=== PATIENT | male | born 1935 | race Caucasian/White ===

== ENCOUNTER 2017-06-11 11:49 | Observation (INO) | payer MEDICARE ==
[~2017-06-11] VITALS: Ht 180.3 cm; Wt 71.4 kg
[~2017-06-11 11:49] MED LIST: ESOM2.5S PO; ESOM20CA PO; HYDR25LI MC; HYDR25TA9 PO; OMEP40CA5 PO; PERI4TAB PO; PSYL0.526 PO; ZOLP10TA PO
[2017-06-11 12:55] VITALS: BP 129/76
[2017-06-11 12:59] LABS: BASO # 0.1 x10^3/uL (0.0-0.2); BASO % 1 % (0-3); EOS % 1 % (0-3); LYMPH # 0.8 x10^3/uL (1.0-4.8); LYMPH % 12 % (24-48); MEAN CORPUSCULAR HEMOGLOBIN 31 pg (25-35); MEAN CORPUSCULAR HGB CONC 34 g/dL (31-37); MEAN CORPUSCULAR VOLUME 92 fL (79-100); MONO # 1.1 x10^3/uL (0.0-1.1); MONO % 17 % (0-9); NEUT # 4.5 x10^3uL (1.8-7.7); NEUT % 70 % (31-73); PLATELET COUNT 162 x10^3/uL (140-400); RED BLOOD COUNT 4.56 x10^6/uL (4.30-5.70); WHITE BLOOD COUNT 6.5 x10^3/uL (4.0-11.0)
[2017-06-11 13:27] LABS: ALBUMIN 3.7 g/dL (3.4-5.0); ALBUMIN/GLOBULIN RATIO 1.3 (1.0-1.7); CALCIUM 8.9 mg/dL (8.5-10.1); CREATININE 1.3 mg/dL (0.7-1.3); GFR 52.7; POTASSIUM 3.8 mmol/L (3.5-5.1); TOTAL BILIRUBIN 0.9 mg/dL (0.2-1.0); TOTAL PROTEIN 6.6 g/dL (6.4-8.2)
[2017-06-11] MEDS ORDERED: TRIA0.25 PO (14:06)
[2017-06-11] MEDS ORDERED: NITR0.4T22 SL (14:06)
[2017-06-11] MEDS ORDERED: PERI8TAB2 PO (14:06)
[2017-06-11] MEDS ORDERED: ATOR40TA59 PO (14:06)
[2017-06-11] MEDS ORDERED: ASPI-630 PO (14:06)
[2017-06-11] MEDS ORDERED: MIRA25TA PO (14:06)
[2017-06-11] MEDS ORDERED: BRIN10DR EACHEYE (14:06)
[2017-06-11] MEDS ORDERED: ISOS30TA4 PO (14:06)
[2017-06-11] MEDS ORDERED: IOHEXOL 300 MG/ML 75 ML VIAL. IV ONE (14:10)
[2017-06-11 15:47] LABS: BACTERIA,URINE 0 /HPF (0-FEW); BILIRUBIN,URINE NEG (NEG); CLARITY,URINE CLEAR; COLOR,URINE YELLOW; GLUCOSE,URINE NEG (NEG); NITRITE,URINE NEG (NEG); SQUAMOUS EPITHELIAL CELL,UR OCC /LPF; UROBILINOGEN,URINE 1 mg/dL (0.2 mg/dL); WBC,URINE OCC /HPF (0-4)
[2017-06-11 16:20] VITALS: BP 130/73
[2017-06-11] MEDS ORDERED: ZOLPIDEM 5 MG TABLET. PO PRN (16:45)
--- NOTE | 2017-06-11 16:53 | RAD ---
Chest, 2 views, 06/11/2017: History: Chest pain Comparison is made to a study from 10/03/2016. There is unchanged elevation of the left hemidiaphragm. A right Port-A-Cath extends into the superior vena cava. The heart size and pulmonary vascularity are normal. There is calcific plaquing and tortuosity of the thoracic aorta. No pulmonary infiltrates are seen. There is no evidence of pleural fluid. Moderate spurring is present in the spine. IMPRESSION: No acute cardiopulmonary abnormality is detected.
--- NOTE | 2017-06-11 17:02 | EKG ---
[address] [address] Test Date: 2017-06-11 Test Time: 17:00:11 Pat Name: DONNELL CONKLIN Department: Room: 113 A Gender: M Clam Treader: : [id number] Requested By: JHON FRAUSTO Order Number: [id number] Reading MD: Parmjit Cross Measurements Intervals [place] Rate: 66 P: 45 [place]: 158 QRS: 7 QRSD: 84 T: 14 QT: 400 QTc: 421 Interpretive Statements SINUS RHYTHM ATRIAL PREMATURE COMPLEX(ES) Electronically Signed On 06-14-2017 8:43:43 CDT by Parmjit Cross
--- NOTE | 2017-06-11 17:21 | PDOC2 ---
CONSULT Date of Admission DATE: 06/11/17 TIME: 17:04 Reason for Consult: chest pain History of Present Illness Mr Haddad is an 81 year old male with history of hypertension, hyperlipidemia and coronary artery disease. He presents with complaints of sharp mid sternal chest pain lasting only a brief period starting last pm. He reports that today in a [place] meeting he had 5 more episodes so presented to his PCP who recommended he be admitted for eval. He reports pain at rest and not increased with exertion but the same as prior to his cath. He has a history of prior atypical chest pain with significantly abnormal MPI followed by cardiac cath in Oct which revealed 90% OM, FIRE WARDEN of RPDA and subtotal occlusion of very distal apical segment of the LAD. He underwent PTCA of the OM but the vessel was not amenable to stenting due to tortuosity. He was seen again early this year which recurrent chest pain and again abnormal MPI but was decided to manage medically. He was started on long acting nitrates and he reports this is the first chest pain he has had since his January follow up with Dr Becerril. He denies any congestive symptoms, sleeps chronically on 2 pillows, denies palpitations, lightheadedness or syncope. Past Medical History CAD with cath history as above. hypertension, chronic mild dyspnea on exertion, Fuchs' Endothelial dystrophy, follicular lymphoma, corneal transplant, advanced surface ablation photorefractive keratectomy, cataract surgery, glaucoma, hyperlipidemia, GERD, Barretts esophagus, cholecystectomy, hemorrhoid sx Family History non contributory due to age Social History non smoker, no significant ETOH, no illicit drugs Current Medications Current Medications Iohexol (Omnipaque 300 Mg/ml) 60 ml 1X ONCE IV Last administered on 06/11/17t 14:23; Start 06/11/17 at 14:10; Stop 06/11/17 at 14:11; Status DC Aspirin (Children'S Aspirin) 81 mg DAILY PO ; Start 06/12/17 at 09:00 Hydrochlorothiazide (Microzide) 12.5 mg DAILY PO ; Start 06/12/17 at 09:00 Isosorbide Mononitrate (Imdur) 30 mg DAILY PO ; Start 06/12/17 at 09:00 Atorvastatin Calcium (Lipitor) 40 mg QHS PO ; Start 06/11/17 at 21:00; Stop at 21:00; Status DC Dorzolamide HCl (Trusopt) 1 drop BID OU ; Start 06/11/17 at 21:00 Pantoprazole Sodium (Protonix) 40 mg DAILYAC PO ; Start 06/12/17 at 07:30 Lisinopril (Prinivil) 20 mg DAILY PO ; Start 06/12/17 at 09:00 Zolpidem Tartrate (Ambien) 5 mg QHS PO ; Start 06/11/17 at 21:00 Zolpidem Tartrate (Ambien) 5 mg PRN QHS PRN PO INSOMNIA; Start 06/11/17 at 16: 45 Atorvastatin Calcium (Lipitor) 40 mg DAILY PO ; Start 06/12/17 at 09:00 Active Scripts Active Nexium Capsule (Esomeprazole Magnesium) 20 Mg Capsule.dr 1 Cap PO DAILY Reported Myrbetriq (Mirabegron) 25 Mg Tab.er.24h 1 Tab PO DAILY Azopt (Brinzolamide) 10 Ml Drops.susp 1 Drop EACHEYE BID Halcion (Triazolam) 0.25 Mg Tablet 1 Tab PO QHS NITROGLYCERIN SubLingual (Nitroglycerin) 0.4 Mg Tab.subl 0.4 Mg SL PRN Q5MIN PRN Atorvastatin Calcium 40 Mg Tablet 1 Tab PO DAILY Isosorbide Mononitrate Er (Isosorbide Mononitrate) 30 Mg Tab.er.24h 1 Tab PO DAILY Perindopril Erbumine 8 Mg Tablet 8 Mg PO DAILY Aspirin 81 Mg Tab.chew 81 Mg PO DAILY Hydrochlorothiazide Tablet (Hydrochlorothiazide) 25 Mg Tablet 0.5 Tab PO DAILY Allergies: Coded Allergies: etomidate (Verified Allergy, Severe, 09/06/15) "Seizure" like activity amoxicillin (Verified Allergy, Mild, 03/29/15) Cough ciprofloxacin (Verified Allergy, Mild, 03/29/15) Cough propofol (Verified Allergy, Unknown, 03/29/15) Cough & Sneeze Review of System as per HPI or negative General: Alert, Oriented X3, Cooperative, No acute distress HEENT: Atraumatic, EOMI, Mucous membr. moist/pink Lungs: Clear to auscultation, Normal air movement Heart: Regular rate, Normal S1, Normal S2 Abdomen: Normal bowel sounds, Soft, No tenderness Extremities: No cyanosis, No edema, Normal pulses Neuro: Normal speech, Strength at 5/5 X4 ext Psych/Mental Status: Mental status NL, Mood NL VITALS Vital Signs Date Time Temp Pulse Resp B/P (MAP) Pulse Ox O2 Delivery O2 Flow Rate FiO2 06/11/17 16:20 98.2 69 20 130/73 (92) 97 Room Air Labs Laboratory Tests Test 06/11/17 12:49 06/11/17 14:50 White Blood Count 6.5 x10^3/uL (4.0-11.0) Red Blood Count 4.56 x10^6/uL (4.30-5.70) Hemoglobin 14.0 g/dL (13.0-17.5) Hematocrit 42.0 % (39.0-53.0) Mean Corpuscular Volume 92 fL (79-100) Mean Corpuscular Hemoglobin 31 pg (25-35) Mean Corpuscular Hemoglobin Concent 34 g/dL (31-37) Red Cell Distribution Width 15.0 % (11.5-14.5) Platelet Count 162 x10^3/uL (140-400) Neutrophils (%) (Auto) 70 % (31-73) Lymphocytes (%) (Auto) 12 % (24-48) Monocytes (%) (Auto) 17 % (0-9) Eosinophils (%) (Auto) 1 % (0-3) Basophils (%) (Auto) 1 % (0-3) Neutrophils # (Auto) 4.5 x10^3uL (1.8-7.7) Lymphocytes # (Auto) 0.8 x10^3/uL (1.0-4.8) Monocytes # (Auto) 1.1 x10^3/uL (0.0-1.1) Eosinophils # (Auto) 0.0 x10^3/uL (0.0-0.7) Basophils # (Auto) 0.1 x10^3/uL (0.0-0.2) D-Dimer (Sandra) 2.63 mg/L (0.00-0.50) Sodium Level 142 mmol/L (136-145) Potassium Level 3.8 mmol/L (3.5-5.1) Chloride Level 105 mmol/L (98-107) Carbon Dioxide Level 28 mmol/L (21-32) Anion Gap 9 (6-14) Blood Urea Nitrogen 30 mg/dL (8-26) Creatinine 1.3 mg/dL (0.7-1.3) Estimated GFR (Cockcroft-Gault) 52.7 BUN/Creatinine Ratio 23 (6-20) Glucose Level 86 mg/dL (70-99) Calcium Level 8.9 mg/dL (8.5-10.1) Total Bilirubin 0.9 mg/dL (0.2-1.0) Aspartate Amino Transf (AST/SGOT) 42 U/L (15-37) Alanine Aminotransferase (ALT/SGPT) 24 U/L (16-63) Alkaline Phosphatase 77 U/L (46-116) Creatine Kinase 133 U/L (39-308) Troponin I Quantitative < 0.017 ng/mL (0-0.055) Total Protein 6.6 g/dL (6.4-8.2) Albumin 3.7 g/dL (3.4-5.0) Albumin/Globulin Ratio 1.3 (1.0-1.7) Urine Collection Type Unknown Urine Color Yellow Urine Clarity Clear Urine pH 5.0 Urine Specific [place] <=1.005 Urine Protein Neg (NEG-TRACE) Urine Glucose (UA) Neg mg/dL (NEG) Urine Ketones (Stick) Neg mg/dL (NEG) Urine Blood Trace (NEG) Urine Nitrite Neg (NEG) Urine Bilirubin Neg (NEG) Urine Urobilinogen Dipstick 1 mg/dL (0.2 mg/dL) Urine Leukocyte Esterase Neg (NEG) Urine RBC 3-5 /HPF (0-2) Urine WBC Occ /HPF (0-4) Urine Squamous Epithelial Cells Occ /LPF Urine Bacteria 0 /HPF (0-FEW) Images EKG - sinus rhythm, early R transition, non specific abnormalities, unchanged from prior EKGs CT pending CXR pending Assessment/Plan 1. Chest pain, atypical but with history of atypical chest pain and coronary artery disease as noted above. Continue serial enzymes, continue anti anginals and add Ranexa. 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 2. hypertension - controlled on current medical therapy. 3. hyperlipidemia - continue statin 4. elevated D dimer - CTA pending. mgmt as per PCP Problems: NESTOR TAY APRN Jun 11, 2017 17:21
--- NOTE | 2017-06-11 17:42 | RAD ---
CTA of the chest with contrast, 06/11/2017: History: Elevated d-dimer previous lymphoma Multidetector CT imaging was performed following an IV bolus injection of iodinated contrast material. Multiplanar reconstructions were produced including coronal MIP images. Comparison is made to a study from 07/29/2014. The central pulmonary arteries are well opacified and no filling defects are seen to suggest pulmonary emboli. There is moderate calcific plaquing of the thoracic aorta. Moderate coronary artery calcifications are evident. A right Port-A-Cath extends into the superior vena cava. There are abnormal densities in the posterior mediastinum, best seen adjacent to the descending thoracic aorta. There is mild retrocrural adenopathy best seen on the right. Several small anterior mediastinal lymph nodes are noted. These are new, although they measure less than 1 cm in diameter. There are mild linear and groundglass opacities posteriorly in the lung bases, probably due to a combination of atelectasis and scarring. This is most prominent posteriorly in the left lower lobe, in association with chronic elevation of the left hemidiaphragm. No pulmonary mass is seen. There is no evidence of pleural fluid. There are several small axillary lymph nodes bilaterally which are new when compared to the previous study. Some of these are considered to be of borderline size. IMPRESSION: 1. No CT evidence of central pulmonary emboli. 2. Calcific plaquing of the aorta and coronary arteries. 3. New mediastinal and retrocrural adenopathy, presumably related to the patient's given history of lymphoma. 4. Chronic elevation of the left hemidiaphragm with mild left basilar atelectasis. PQRS Compliance Statement: One or more of the following individualized dose reduction techniques were utilized for this examination: 1. Automated exposure control 2. Adjustment of the mA and/or kV according to patient size 3. Use of iterative reconstruction technique
[2017-06-11 19:34] VITALS: BP 134/77
[2017-06-11] MEDS: DORZOLAMIDE 2% OPHTH SOLUTION 10ML BOTTLE. OU SCH ×2 (21:00→22:25)
[2017-06-11] MEDS: RANOLAZINE 500 MG TAB.ER.12H PO SCH ×2 (21:00→22:25)
[2017-06-11] MEDS ORDERED: ZOLPIDEM 5 MG TABLET. PO SCH (21:00)
[2017-06-11] MEDS ORDERED: ATORVASTATIN CALCIUM 20 MG TABLET PO SCH (21:00)
[2017-06-12 05:52] VITALS: BP 146/82
[2017-06-12 06:16] LABS: BASO # 0.1 x10^3/uL (0.0-0.2); BASO % 1 % (0-3); EOS # 0.1 x10^3/uL (0.0-0.7); EOS % 1 % (0-3); HEMATOCRIT 39.6 % (39.0-53.0); HEMOGLOBIN 13.2 g/dL (13.0-17.5); LYMPH # 0.8 x10^3/uL (1.0-4.8); LYMPH % 12 % (24-48); MEAN CORPUSCULAR HEMOGLOBIN 31 pg (25-35); MEAN CORPUSCULAR HGB CONC 33 g/dL (31-37); MEAN CORPUSCULAR VOLUME 92 fL (79-100); MONO # 1.5 x10^3/uL (0.0-1.1); MONO % 22 % (0-9); NEUT # 4.3 x10^3uL (1.8-7.7); NEUT % 64 % (31-73); PLATELET COUNT 151 x10^3/uL (140-400); RED BLOOD COUNT 4.31 x10^6/uL (4.30-5.70); RED CELL DISTRIBUTION WIDTH 15.1 % (11.5-14.5); WHITE BLOOD COUNT 6.7 x10^3/uL (4.0-11.0)
[2017-06-12 06:31] LABS: CALCIUM 8.5 mg/dL (8.5-10.1); CREATININE 1.3 mg/dL (0.7-1.3); GFR 52.7; POTASSIUM 3.5 mmol/L (3.5-5.1)
[2017-06-12] MEDS ORDERED: PANTOPRAZOLE 40 MG TABLET. PO SCH (07:30)
[2017-06-12] MEDS: DORZOLAMIDE 2% OPHTH SOLUTION 10ML BOTTLE. OU SCH (08:12)
[2017-06-12] MEDS: RANOLAZINE 500 MG TAB.ER.12H PO SCH (08:14)
[2017-06-12] MEDS ORDERED: ATORVASTATIN CALCIUM 20 MG TABLET PO SCH (09:00)
[2017-06-12] MEDS ORDERED: ISOSORBIDE MONONITRATE ER 30 MG TAB.ER.24H PO SCH (09:00)
[2017-06-12] MEDS ORDERED: MIRABEGRON 25 MG TAB.ER.24H PO SCH (09:00)
[2017-06-12] MEDS ORDERED: LISINOPRIL 20 MG TABLET PO SCH (09:00)
[2017-06-12] MEDS ORDERED: ASPIRIN 81 MG TAB.CHEW PO SCH (09:00)
[2017-06-12] MEDS ORDERED: hydroCHLOROthiazide 12.5 MG CAPSULE PO SCH (09:00)
--- NOTE | 2017-06-12 10:00 | PDOC ---
OBJECTIVE: Problems: Chest pain angina WDWN in NAD Vital Signs: Vital Signs Date Time Temp Pulse Resp B/P (MAP) Pulse Ox O2 Delivery O2 Flow Rate FiO2 06/12/17 08:14 67 146/82 06/11/17 20:00 Room Air 06/11/17 19:34 98.4 20 94 I & O Intake and Output 06/12/17 07:00 Intake Total 840 ml Balance 840 ml Intake Oral 840 ml # Voids 1 Labs: Laboratory Tests Test 06/11/17 12:49 06/11/17 14:50 06/11/17 18:25 06/12/17 00:30 White Blood Count 6.5 x10^3/uL (4.0-11.0) Red Blood Count 4.56 x10^6/uL (4.30-5.70) Hemoglobin 14.0 g/dL (13.0-17.5) Hematocrit 42.0 % (39.0-53.0) Mean Corpuscular Volume 92 fL (79-100) Mean Corpuscular Hemoglobin 31 pg (25-35) Mean Corpuscular Hemoglobin Concent 34 g/dL (31-37) Red Cell Distribution Width 15.0 % (11.5-14.5) Platelet Count 162 x10^3/uL (140-400) Neutrophils (%) (Auto) 70 % (31-73) Lymphocytes (%) (Auto) 12 % (24-48) Monocytes (%) (Auto) 17 % (0-9) Eosinophils (%) (Auto) 1 % (0-3) Basophils (%) (Auto) 1 % (0-3) Neutrophils # (Auto) 4.5 x10^3uL (1.8-7.7) Lymphocytes # (Auto) 0.8 x10^3/uL (1.0-4.8) Monocytes # (Auto) 1.1 x10^3/uL (0.0-1.1) Eosinophils # (Auto) 0.0 x10^3/uL (0.0-0.7) Basophils # (Auto) 0.1 x10^3/uL (0.0-0.2) D-Dimer (Sandra) 2.63 mg/L (0.00-0.50) Sodium Level 142 mmol/L (136-145) Potassium Level 3.8 mmol/L (3.5-5.1) Chloride Level 105 mmol/L (98-107) Carbon Dioxide Level 28 mmol/L (21-32) Anion Gap 9 (6-14) Blood Urea Nitrogen 30 mg/dL (8-26) Creatinine 1.3 mg/dL (0.7-1.3) Estimated GFR (Cockcroft-Gault) 52.7 BUN/Creatinine Ratio 23 (6-20) Glucose Level 86 mg/dL (70-99) Calcium Level 8.9 mg/dL (8.5-10.1) Total Bilirubin 0.9 mg/dL (0.2-1.0) Aspartate Amino Transf (AST/SGOT) 42 U/L (15-37) Alanine Aminotransferase (ALT/SGPT) 24 U/L (16-63) Alkaline Phosphatase 77 U/L (46-116) Creatine Kinase 133 U/L (39-308) Troponin I Quantitative < 0.017 ng/mL (0-0.055) 0.017 ng/mL (0-0.055) < 0.017 ng/mL (0-0.055) Total Protein 6.6 g/dL (6.4-8.2) Albumin 3.7 g/dL (3.4-5.0) Albumin/Globulin Ratio 1.3 (1.0-1.7) Urine Collection Type Unknown Urine Color Yellow Urine Clarity Clear Urine pH 5.0 Urine Specific [place] <=1.005 Urine Protein Neg (NEG-TRACE) Urine Glucose (UA) Neg mg/dL (NEG) Urine Ketones (Stick) Neg mg/dL (NEG) Urine Blood Trace (NEG) Urine Nitrite Neg (NEG) Urine Bilirubin Neg (NEG) Urine Urobilinogen Dipstick 1 mg/dL (0.2 mg/dL) Urine Leukocyte Esterase Neg (NEG) Urine RBC 3-5 /HPF (0-2) Urine WBC Occ /HPF (0-4) Urine Squamous Epithelial Cells Occ /LPF Urine Bacteria 0 /HPF (0-FEW) Test 06/12/17 05:53 White Blood Count 6.7 x10^3/uL (4.0-11.0) Red Blood Count 4.31 x10^6/uL (4.30-5.70) Hemoglobin 13.2 g/dL (13.0-17.5) Hematocrit 39.6 % (39.0-53.0) Mean Corpuscular Volume 92 fL (79-100) Mean Corpuscular Hemoglobin 31 pg (25-35) Mean Corpuscular Hemoglobin Concent 33 g/dL (31-37) Red Cell Distribution Width 15.1 % (11.5-14.5) Platelet Count 151 x10^3/uL (140-400) Neutrophils (%) (Auto) 64 % (31-73) Lymphocytes (%) (Auto) 12 % (24-48) Monocytes (%) (Auto) 22 % (0-9) Eosinophils (%) (Auto) 1 % (0-3) Basophils (%) (Auto) 1 % (0-3) Neutrophils # (Auto) 4.3 x10^3uL (1.8-7.7) Lymphocytes # (Auto) 0.8 x10^3/uL (1.0-4.8) Monocytes # (Auto) 1.5 x10^3/uL (0.0-1.1) Eosinophils # (Auto) 0.1 x10^3/uL (0.0-0.7) Basophils # (Auto) 0.1 x10^3/uL (0.0-0.2) Sodium Level 144 mmol/L (136-145) Potassium Level 3.5 mmol/L (3.5-5.1) Chloride Level 107 mmol/L (98-107) Carbon Dioxide Level 29 mmol/L (21-32) Anion Gap 8 (6-14) Blood Urea Nitrogen 27 mg/dL (8-26) Creatinine 1.3 mg/dL (0.7-1.3) Estimated GFR (Cockcroft-Gault) 52.7 Glucose Level 89 mg/dL (70-99) Calcium Level 8.5 mg/dL (8.5-10.1) Physical Exam: Alert and oriented white male in no apparent distress Lungs diminished but clear severe exam regular sinus rhythm M soft nontender Extremities or clubbing cyanosis or edema Pulses noted distally 2 over 4 Neurologically alert and oriented 3 ASSESSMENT: Angina probable unstable History of coronary artery disease History of lymphoma PLAN: Continue to monitor just medications echocardiogram pending as well as cardiology evaluation is also pending at this time JHON FRAUSTO MD Jun 12, 2017 10:00
[2017-06-12 10:49] VITALS: BP 107/67
[2017-06-12 12:32] VITALS: BP 104/62
[2017-06-12 12:36] VITALS: BP_SYST 94; BP_SYST 99; BP_DIAS 60; BP_DIAS 62
[2017-06-12 15:05] VITALS: BP 97/60
--- NOTE | 2017-06-12 16:39 | CARD ---
APPROVED REPORT EXAM: Two-dimensional and M-mode echocardiogram with Doppler and color Doppler. Other Information Quality : Average Rhythm : NSR INDICATION Chest Pain 2D DIMENSIONS Left Atrium(2D)2.6 (1.6-4.0cm)IVSd0.9 (0.7-1.1cm) Aortic Root(2D)3.4 (2.0-3.7cm)LVDd3.1 (3.9-5.9cm) LVOT Diameter2.2 (1.8-2.4cm)PWd0.9 (0.7-1.1cm) LVDs1.8 (2.5-4.0cm)FS (%) 32.4 % SV27.7 mlLVEF(%)64.9 (>50%) Aortic Valve AoV Peak Joao.100.8cm/sAoV VTI17.4cm AO Peak GR.4.1mmHgLVOT Peak Joao.98.0cm/s LVOT VTI 19.63cmAO Mean GR.3mmHg MINA (VMAX)3.29tg6VOS (VTI)4.32cm2 AI P 1/2 Nndx056av Mitral Valve MV E Qsyuenhf05.9cm/sMV DECEL [id number] MV A Fybmbtuu17.8cm/sMV [id number] E/A Ratio0.6MV A [id number] MVA (PHT)2.30cm2 LEFT VENTRICLE The left ventricle cavity is small. There is normal left ventricular wall thickness. Left ventricle s ystolic function is normal. The Ejection Fraction is 60-65%. There is normal LV segmental wall motion . Tissue Doppler imaging reveals mild left ventricular diastolic dysfunction. RIGHT VENTRICLE The right ventricle is normal size. The right ventricular systolic function is normal. ATRIA The left atrium size is normal. The right atrium size is normal. The interatrial septum is intact wit h no evidence for an atrial septal defect or patent foramen ovale as noted on 2-D or Doppler imaging. AORTIC VALVE The aortic valve is mildly sclerotic. The aortic valve is trileaflet. Doppler and Color Flow revealed trace to mild aortic regurgitation. There is no significant aortic valvular stenosis. MITRAL VALVE The anterior mitral valve leaflet is thickened. There is no mitral valve stenosis. Doppler and Color Flow revealed no mitral valve regurgitation noted. TRICUSPID VALVE The tricuspid valve is normal in structure and function. Doppler and Color Flow revealed no tricuspid valve regurgitation noted. Unable to estimate PA pressure. There is no tricuspid valve stenosis. PULMONIC VALVE The pulmonic valve is not well visualized. Doppler and Color Flow revealed no pulmonic valvular regur gitation. There is no pulmonic valvular stenosis. GREAT VESSELS The aortic root is normal in size. The ascending aorta is normal in size. Pulmonary veins not recorde d. The IVC is normal in size and collapses >50% with inspiration. PERICARDIAL EFFUSION There is no evidence of significant pericardial effusion. Critical Notification Critical Value: No <Conclusion> Left ventricle systolic function is normal. The Ejection Fraction is 60-65%. There is normal LV segmental wall motion.
--- NOTE | 2017-06-12 17:03 | PDOC ---
PROGRESS NOTES Assessment 1. Chest pain with atypical features in a patient with known history of coronary artery disease. Myocardial infarction ruled out. 2-D echo showed normal LV function without any wall motion abnormalities. Continue current medical regimen. Okay for discharge from cardiac standpoint. Follow-up with primary photo graphics librarian, Dr. Becerril. 2. hypertension - controlled on current medical therapy. 3. hyperlipidemia - continue statin Problems: Subjective Patient feeling better. Denied any chest pain. Objective Vital Signs Date Time Temp Pulse Resp B/P (MAP) Pulse Ox O2 Delivery O2 Flow Rate FiO2 06/12/17 15:05 97.9 77 20 97/60 (72) 94 Room Air Intake and Output 06/12/17 07:00 Intake Total 840 ml Balance 840 ml Intake Oral 840 ml # Voids 1 Abdomen: Soft, No tenderness Heart: Regular rate Extremities: No edema General: Alert, Oriented X3 HEENT: Atraumatic Lungs: Clear to auscultation Neck: Supple Neuro: Normal gait Psych/Mental Status: Mood NL Review of Relevant I have reviewed the following items dacia (where applicable) has been applied. Labs Laboratory Tests Test 06/11/17 12:49 06/11/17 14:50 06/11/17 18:25 06/12/17 00:30 White Blood Count 6.5 x10^3/uL (4.0-11.0) Red Blood Count 4.56 x10^6/uL (4.30-5.70) Hemoglobin 14.0 g/dL (13.0-17.5) Hematocrit 42.0 % (39.0-53.0) Mean Corpuscular Volume 92 fL (79-100) Mean Corpuscular Hemoglobin 31 pg (25-35) Mean Corpuscular Hemoglobin Concent 34 g/dL (31-37) Red Cell Distribution Width 15.0 % (11.5-14.5) Platelet Count 162 x10^3/uL (140-400) Neutrophils (%) (Auto) 70 % (31-73) Lymphocytes (%) (Auto) 12 % (24-48) Monocytes (%) (Auto) 17 % (0-9) Eosinophils (%) (Auto) 1 % (0-3) Basophils (%) (Auto) 1 % (0-3) Neutrophils # (Auto) 4.5 x10^3uL (1.8-7.7) Lymphocytes # (Auto) 0.8 x10^3/uL (1.0-4.8) Monocytes # (Auto) 1.1 x10^3/uL (0.0-1.1) Eosinophils # (Auto) 0.0 x10^3/uL (0.0-0.7) Basophils # (Auto) 0.1 x10^3/uL (0.0-0.2) D-Dimer (Sandra) 2.63 mg/L (0.00-0.50) Sodium Level 142 mmol/L (136-145) Potassium Level 3.8 mmol/L (3.5-5.1) Chloride Level 105 mmol/L (98-107) Carbon Dioxide Level 28 mmol/L (21-32) Anion Gap 9 (6-14) Blood Urea Nitrogen 30 mg/dL (8-26) Creatinine 1.3 mg/dL (0.7-1.3) Estimated GFR (Cockcroft-Gault) 52.7 BUN/Creatinine Ratio 23 (6-20) Glucose Level 86 mg/dL (70-99) Calcium Level 8.9 mg/dL (8.5-10.1) Total Bilirubin 0.9 mg/dL (0.2-1.0) Aspartate Amino Transf (AST/SGOT) 42 U/L (15-37) Alanine Aminotransferase (ALT/SGPT) 24 U/L (16-63) Alkaline Phosphatase 77 U/L (46-116) Creatine Kinase 133 U/L (39-308) Troponin I Quantitative < 0.017 ng/mL (0-0.055) 0.017 ng/mL (0-0.055) < 0.017 ng/mL (0-0.055) Total Protein 6.6 g/dL (6.4-8.2) Albumin 3.7 g/dL (3.4-5.0) Albumin/Globulin Ratio 1.3 (1.0-1.7) Urine Collection Type Unknown Urine Color Yellow Urine Clarity Clear Urine pH 5.0 Urine Specific [place] <=1.005 Urine Protein Neg (NEG-TRACE) Urine Glucose (UA) Neg mg/dL (NEG) Urine Ketones (Stick) Neg mg/dL (NEG) Urine Blood Trace (NEG) Urine Nitrite Neg (NEG) Urine Bilirubin Neg (NEG) Urine Urobilinogen Dipstick 1 mg/dL (0.2 mg/dL) Urine Leukocyte Esterase Neg (NEG) Urine RBC 3-5 /HPF (0-2) Urine WBC Occ /HPF (0-4) Urine Squamous Epithelial Cells Occ /LPF Urine Bacteria 0 /HPF (0-FEW) Test 06/12/17 05:53 White Blood Count 6.7 x10^3/uL (4.0-11.0) Red Blood Count 4.31 x10^6/uL (4.30-5.70) Hemoglobin 13.2 g/dL (13.0-17.5) Hematocrit 39.6 % (39.0-53.0) Mean Corpuscular Volume 92 fL (79-100) Mean Corpuscular Hemoglobin 31 pg (25-35) Mean Corpuscular Hemoglobin Concent 33 g/dL (31-37) Red Cell Distribution Width 15.1 % (11.5-14.5) Platelet Count 151 x10^3/uL (140-400) Neutrophils (%) (Auto) 64 % (31-73) Lymphocytes (%) (Auto) 12 % (24-48) Monocytes (%) (Auto) 22 % (0-9) Eosinophils (%) (Auto) 1 % (0-3) Basophils (%) (Auto) 1 % (0-3) Neutrophils # (Auto) 4.3 x10^3uL (1.8-7.7) Lymphocytes # (Auto) 0.8 x10^3/uL (1.0-4.8) Monocytes # (Auto) 1.5 x10^3/uL (0.0-1.1) Eosinophils # (Auto) 0.1 x10^3/uL (0.0-0.7) Basophils # (Auto) 0.1 x10^3/uL (0.0-0.2) Sodium Level 144 mmol/L (136-145) Potassium Level 3.5 mmol/L (3.5-5.1) Chloride Level 107 mmol/L (98-107) Carbon Dioxide Level 29 mmol/L (21-32) Anion Gap 8 (6-14) Blood Urea Nitrogen 27 mg/dL (8-26) Creatinine 1.3 mg/dL (0.7-1.3) Estimated GFR (Cockcroft-Gault) 52.7 Glucose Level 89 mg/dL (70-99) Calcium Level 8.5 mg/dL (8.5-10.1) Microbiology 06/11/17 Urine Culture - Preliminary, Resulted 06/11/17 Urine Culture Result 1 (MUNIR) - Preliminary, Resulted Medications Current Medications Iohexol (Omnipaque 300 Mg/ml) 60 ml 1X ONCE IV Last administered on 06/11/17 14:23; Start 06/11/17 at 14:10; Stop 06/11/17 at 14:11; Status DC Aspirin (Children'S Aspirin) 81 mg DAILY PO Last administered on 06/12/17 08: 12; Start 06/12/17 at 09:00 Hydrochlorothiazide (Microzide) 12.5 mg DAILY PO Last administered on 08:13; Start 06/12/17 at 09:00 Isosorbide Mononitrate (Imdur) 30 mg DAILY PO Last administered on 06/12/17 08 :13; Start 06/12/17 at 09:00 Atorvastatin Calcium (Lipitor) 40 mg QHS PO ; Start 06/11/17 at 21:00; Stop at 21:00; Status DC Dorzolamide HCl (Trusopt) 1 drop BID OU Last administered on 06/12/17 08:12; Start 06/11/17 at 21:00 Pantoprazole Sodium (Protonix) 40 mg DAILYAC PO Last administered on 06/12/17 08:12; Start 06/12/17 at 07:30 Lisinopril (Prinivil) 20 mg DAILY PO Last administered on 06/12/17 08:14; Start 06/12/17 at 09:00 Zolpidem Tartrate (Ambien) 5 mg QHS PO Last administered on 06/11/17 22:26; Start 06/11/17 at 21:00 Zolpidem Tartrate (Ambien) 5 mg PRN QHS PRN PO INSOMNIA Last administered on 00:41; Start 06/11/17 at 16:45 Atorvastatin Calcium (Lipitor) 40 mg DAILY PO Last administered on 06/12/17 08 :13; Start 06/12/17 at 09:00 Ranolazine (Ranexa) 500 mg BID PO Last administered on 06/12/17t 08:14; Start 06/11/17 at 21:00 Active Scripts Active Nexium Capsule (Esomeprazole Magnesium) 20 Mg Capsule.dr 1 Cap PO DAILY Reported Myrbetriq (Mirabegron) 25 Mg Tab.er.24h 1 Tab PO DAILY LAST DOSE GIVEN: DATE: 06/13 TIME: AM NEXT DOSE DUE: DATE: 06/13 TIME: AM Azopt (Brinzolamide) 10 Ml Drops.susp 1 Drop EACHEYE BID Halcion (Triazolam) 0.25 Mg Tablet 1 Tab PO QHS NITROGLYCERIN SubLingual (Nitroglycerin) 0.4 Mg Tab.subl 0.4 Mg SL PRN Q5MIN PRN Atorvastatin Calcium 40 Mg Tablet 1 Tab PO DAILY Isosorbide Mononitrate Er (Isosorbide Mononitrate) 30 Mg Tab.er.24h 1 Tab PO DAILY LAST DOSE GIVEN: DATE: 06/12 TIME: AM NEXT DOSE DUE: DATE: 06/13 TIME: AM Perindopril Erbumine 8 Mg Tablet 8 Mg PO DAILY Aspirin 81 Mg Tab.chew 81 Mg PO DAILY LAST DOSE GIVEN: DATE: 06/12 TIME: AM NEXT DOSE DUE: DATE: 06/13 TIME: AM Hydrochlorothiazide Tablet (Hydrochlorothiazide) 25 Mg Tablet 0.5 Tab PO DAILY LAST DOSE GIVEN: DATE: 06/12 TIME: AM NEXT DOSE DUE: DATE: 06/13 TIME: AM Vitals/I & O Vital Sign - Last 24 Hours 06/11/17 06/11/17 06/11/17 06/12/17 19:34 20:00 23:14 05:52 Temp 98.4 Pulse 58 85 67 Resp 20 B/P (MAP) 134/77 (96) 146/82 (103) Pulse Ox 94 O2 Delivery Room Air Room Air 06/12/17 06/12/17 06/12/17 06/12/17 07:45 08:13 08:14 08:14 Pulse 67 67 67 B/P (MAP) 146/82 146/82 146/82 O2 Delivery Room Air 06/12/17 06/12/17 06/12/17 06/12/17 10:49 12:32 12:36 12:36 Temp 98.4 98.0 Pulse 75 70 86 89 Resp 20 20 B/P (MAP) 107/67 (80) 104/62 (76) 99/62 (74) 94/60 (71) Pulse Ox 94 96 95 95 O2 Delivery Room Air Room Air Room Air Room Air 06/12/17 15:05 Temp 97.9 Pulse 77 Resp 20 B/P (MAP) 97/60 (72) Pulse Ox 94 O2 Delivery Room Air Intake and Output 06/11/17 06/11/17 06/12/17 15:00 23:00 07:00 Intake Total 360 ml 480 ml Balance 360 ml 480 ml LUIS BROWN MD Jun 12, 2017 17:03
--- NOTE | 2017-06-13 11:37 | DS ---
DATE OF DISCHARGE: 06/12/2017 HOSPITAL COURSE: The patient is an 81-year-old gentleman with chest pain had intermittently off and on, had positive D-dimer that was negative. CTA except for calcific plaque into the aorta and coronary arteries. In any case, the patient made good progress during the rest of his hospitalization. His cardiac enzymes were unremarkable. His renal function showed a slight decrease of 52. In any case, the patient made excellent progress during the rest of his hospitalization. He also had apparently an echocardiogram with . showed a 60-65% ejection fraction. IMPRESSION: Chest pain, angina, history of coronary artery disease, atherosclerosis. The patient to be discharged. Regular diet, decreased activity, monitor his cholesterol. 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 JHON FRAUSTO MD DR: [email or web address] JOB#: [id number] / [id number]
== END 2017-06-12 17:15 | disposition home or self-care (01) ==
LOC: 1 SOUTH 12:21
PROVIDERS: ADMIT Family Medicine; ATTEND Family Medicine
DX: R07.89 Other chest pain (principal); E78.5 Hyperlipidemia, unspecified; H40.9 Unspecified glaucoma; I10 Essential (primary) hypertension; K21.9 Gastro-esophageal reflux disease without esophagitis; K22.70 Barrett's esophagus without dysplasia; I25.10 Atherosclerotic heart disease of native coronary artery without angina pectoris
CPT/HCPCS: 36415; 71020; 71275; 80048; 80053; 81001; 82550; 84484; 85027; 85379; 87086; 93005; 93306; G0378; G0379; Q9967

== ENCOUNTER 2017-08-02 15:44 | Observation (INO) | payer MEDICARE ==
[~2017-08-02] VITALS: Ht 180.3 cm; Wt 68.5 kg
[~2017-08-02 15:44] MED LIST changes: +ASPI-630 PO; +ATOR40TA59 PO; +BRIN10DR EACHEYE; +ISOS30TA4 PO; +MIRA25TA PO; +NITR0.4T22 SL; +PERI8TAB2 PO; +TRIA0.25 PO
[2017-08-02 16:08] VITALS: BP 114/61
[2017-08-02 16:09] VITALS: BP 114/61
[2017-08-02] MEDS ORDERED: clonazePAM 0.5 MG TABLET PO PRN ×3 (16:15→18:15)
[2017-08-02] MEDS ORDERED: ONDANSETRON ODT 4 MG TAB.RAPDIS PO PRN (16:15)
[2017-08-02] MEDS ORDERED: IOHEXOL 240 MG/ML 50ML VIAL. ONE (16:23)
[2017-08-02] MEDS ORDERED: IOHEXOL 300 MG/ML 75 ML VIAL. IV ONE (16:45)
[2017-08-02 16:47] LABS: BASO % 1 % (0-3); EOS % 0 % (0-3); HEMATOCRIT 42.5 % (39.0-53.0); HEMOGLOBIN 14.5 g/dL (13.0-17.5); LYMPH # 0.7 x10^3/uL (1.0-4.8); LYMPH % 12 % (24-48); MEAN CORPUSCULAR HEMOGLOBIN 31 pg (25-35); MEAN CORPUSCULAR HGB CONC 34 g/dL (31-37); MEAN CORPUSCULAR VOLUME 92 fL (79-100); MONO # 0.9 x10^3/uL (0.0-1.1); MONO % 15 % (0-9); NEUT # 4.7 x10^3uL (1.8-7.7); NEUT % 73 % (31-73); PLATELET COUNT 168 x10^3/uL (140-400); RED BLOOD COUNT 4.62 x10^6/uL (4.30-5.70); RED CELL DISTRIBUTION WIDTH 14.3 % (11.5-14.5); WHITE BLOOD COUNT 6.4 x10^3/uL (4.0-11.0)
[2017-08-02] MEDS ORDERED: ENOXAPARIN 40 MG/0.4 ML DISP.SYRIN. SQ SCH (17:00)
[2017-08-02 17:03] LABS: ALBUMIN 3.9 g/dL (3.4-5.0); ALBUMIN/GLOBULIN RATIO 1.4 (1.0-1.7); CALCIUM 8.9 mg/dL (8.5-10.1); CREATININE 1.4 mg/dL (0.7-1.3); GFR 48.3; POTASSIUM 4.2 mmol/L (3.5-5.1); TOTAL PROTEIN 6.6 g/dL (6.4-8.2)
[2017-08-02] MEDS ORDERED: PRED1DRO OD (17:18)
[2017-08-02] MEDS ORDERED: SODI15DR5 OD (17:18)
[2017-08-02] MEDS ORDERED: TAFL1DRO OP (17:18)
--- NOTE | 2017-08-02 17:18 | EKG ---
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
[2017-08-02] MEDS: IV NORMAL SALINE 1,000ML 1,000 ML IV SCH (17:32)
[2017-08-02] MEDS ORDERED: NITROGLYCERIN SUBLINGUAL 0.4 MG BOTTLE OF 25. SL PRN (18:15)
[2017-08-02 19:36] VITALS: BP 111/67
[2017-08-02] MEDS: KETOCONAZOLE 2% TOPICAL CREAM 30GM TUBE. TP SCH (20:54)
[2017-08-02] MEDS: DORZOLAMIDE 2% OPHTH SOLUTION 10ML BOTTLE. OU SCH (20:54)
[2017-08-02] MEDS: prednisoLONE ACETATE 1% OPHTH SUSPENSION 5ML BOTTLE. OD SCH (20:55)
[2017-08-02] MEDS: SODIUM CHLORIDE 5% OPHTH SOLUTION 15ML BOTTLE. OD SCH (20:55)
[2017-08-02] MEDS ORDERED: TAFLUPROST OP SCH (21:00)
[2017-08-02] MEDS ORDERED: ZOLPIDEM 5 MG TABLET. PO SCH (21:00)
[2017-08-02 23:23] VITALS: BP 120/65
[2017-08-03] MEDS: IV NORMAL SALINE 1,000ML 1,000 ML IV SCH (05:10)
[2017-08-03 05:24] VITALS: BP 135/66
[2017-08-03 06:35] LABS: BASO # 0.1 x10^3/uL (0.0-0.2); BASO % 1 % (0-3); EOS # 0.1 x10^3/uL (0.0-0.7); EOS % 1 % (0-3); HEMATOCRIT 39.2 % (39.0-53.0); HEMOGLOBIN 13.8 g/dL (13.0-17.5); LYMPH # 0.8 x10^3/uL (1.0-4.8); LYMPH % 15 % (24-48); MEAN CORPUSCULAR HEMOGLOBIN 32 pg (25-35); MEAN CORPUSCULAR HGB CONC 35 g/dL (31-37); MEAN CORPUSCULAR VOLUME 91 fL (79-100); MONO # 1.2 x10^3/uL (0.0-1.1); MONO % 21 % (0-9); NEUT # 3.5 x10^3uL (1.8-7.7); NEUT % 62 % (31-73); PLATELET COUNT 152 x10^3/uL (140-400); RED CELL DISTRIBUTION WIDTH 14.3 % (11.5-14.5); WHITE BLOOD COUNT 5.6 x10^3/uL (4.0-11.0)
[2017-08-03] MEDS ORDERED: IOHEXOL 240 MG/ML 50ML VIAL. ONE (06:39)
[2017-08-03 06:51] LABS: ALBUMIN 3.3 g/dL (3.4-5.0); ALBUMIN/GLOBULIN RATIO 1.4 (1.0-1.7); CALCIUM 8.4 mg/dL (8.5-10.1); CREATININE 1.3 mg/dL (0.7-1.3); GFR 52.6; POTASSIUM 3.7 mmol/L (3.5-5.1); TOTAL BILIRUBIN 0.6 mg/dL (0.2-1.0); TOTAL PROTEIN 5.6 g/dL (6.4-8.2)
[2017-08-03] MEDS ORDERED: IOHEXOL 300 MG/ML 75 ML VIAL. IV ONE (07:20)
--- NOTE | 2017-08-03 08:44 | RAD ---
Examination: CT angiogram of the chest History: History of chest pain with elevated d-dimer Comparison: 06/11/2017 Technique: Axial CT and radiographic images were performed with IV contrast. Coronal sagittal 3-D MIP reformats are performed PQRS Compliance Statement: One or more of the following individualized dose reduction techniques were utilized for this examination: 1. Automated exposure control 2. Adjustment of the mA and/or kV according to patient size 3. Use of iterative reconstruction technique Findings: Right-sided Port-A-Cath is unchanged. Diffuse coronary artery calcifications identified. The caliber of the aorta grossly appears unremarkable. Mild aortic atherosclerosis. There is no evidence of filling defect identified in the main pulmonary arterial trunk and right and left main pulmonary arteries and the visualized lobar branches of the pulmonary arteries. The evaluation of distal segmental branches of pulmonary arteries is limited. Mild left lung base atelectasis or scarring changes identified. There is elevation of left hemidiaphragm similar to prior exam. Few prominent retrocrural lymph nodes are again identified. Tiny subcentimeter anterior mediastinal lymph nodes are again identified. There are few prominent bilateral axillary lymph nodes identified with the largest measuring 1.4 cm in transverse dimension. Moderate degenerative changes thoracic spine. Impression: 1. No evidence of central pulmonary embolism. The evaluation of the distal segmental branches of the pulmonary arteries is limited. 2. Few mediastinal, bilateral axillary and retrocrural lymph nodes probably related to known history of lymphoma grossly similar to prior exam. 3. Chronic elevation of the left hemidiaphragm with left lung base atelectasis or scarring changes. 4. Coronary artery calcifications.
--- NOTE | 2017-08-03 08:59 | RAD ---
Examination: CT of the abdomen pelvis with oral and IV contrast History: History of abdominal pain, nausea. Comparison: 07/29/2014 Technique: Axial CT images of the abdomen pelvis was performed with with oral and IV contrast. Coronal and sagittal reformats are performed PQRS Compliance Statement: One or more of the following individualized dose reduction techniques were utilized for this examination: 1. Automated exposure control 2. Adjustment of the mA and/or kV according to patient size 3. Use of iterative reconstruction technique Findings: Mild elevation of the left hemidiaphragm. The visualized right lung base grossly appears unremarkable. No evidence of free identified in the abdomen. The visualized liver demonstrates a small subcentimeter cystic structure in the left lobe of the liver probably a cyst. The visualized spleen, adrenals grossly appears unremarkable. Few prominent retrocrural lymph nodes identified. There are multiple large retroperitoneal lymph nodes identified around the inferior vena cava and the abdominal aorta with the largest measuring about 4 cm. The bilateral kidneys enhance symmetrically. Multiple cystic structures identified in the bilateral kidneys largest measuring 6 cm likely cysts. The stomach is not distended. The visualized pancreas grossly appears unremarkable. Cholecystectomy clips identified. The small bowel is nondilated. Feces and gas noted throughout the colon. The appendix is normal. The urinary bladder is mildly distended. Moderate enlarged prostate gland. Moderate degenerative changes lumbar spine. Impression: 1. Multiple enlarged retroperitoneal and retrocrural lymph nodes identified. The largest conglomerate of retroperitoneal lymph nodes measures 4 cm. These enlarged lymph nodes surround the inferior vena cava and the aorta. This most likely is lymphoma given patient's history of lymphoma. PET CT scan may be useful for further evaluation. 2. Bilateral renal cysts. 3. Cholecystectomy changes. 4. Moderate prostatomegaly.
[2017-08-03] MEDS ORDERED: hydroCHLOROthiazide 12.5 MG CAPSULE PO SCH (09:00)
[2017-08-03] MEDS ORDERED: LISINOPRIL 20 MG TABLET PO SCH (09:00)
[2017-08-03] MEDS ORDERED: ASPIRIN 81 MG TAB.CHEW PO SCH (09:00)
[2017-08-03] MEDS ORDERED: PANTOPRAZOLE 40 MG TABLET. PO SCH (09:00)
[2017-08-03] MEDS: ATORVASTATIN CALCIUM 20 MG TABLET PO SCH ×2 (09:00→09:36)
--- NOTE | 2017-08-03 09:05 | PDOC2 ---
CONSULT Date of Admission DATE: 08/03/17 TIME: 09:05 Reason for Consult: chest pain History of Present Illness Mr Haddad is an 82 year old male patient of Dr Becerril. He presents with complaints of chest tightness that occurred while under stress at a needmade meeting. Discomfort lasted 10-15 minutes with associated nausea. He denies exacerbating or relieving factors or radiation. 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 He underwent PTCA of the OM but the vessel was not amenable to stenting due to tortuosity. He was seen again early this year which recurrent chest pain and again abnormal MPI but was decided to manage medically. He was started on long acting nitrates and he reports this is the first chest pain he has had since his January follow up with Dr Becerril. He denies any congestive symptoms, sleeps chronically on 2 pillows, denies palpitations, lightheadedness or syncope. He was seen in May with similar symptoms but has not yet followed up with Dr Becerril. His echo at that time revealed normal LV function and wall motion. He does have a scheduled appt next week. Past Medical History CAD with cath history as above. hypertension, chronic mild dyspnea on exertion, Fuchs' Endothelial dystrophy, follicular lymphoma, glaucoma, hyperlipidemia, GERD, Barretts esophagus, Past Surgical History corneal transplant, advanced surface ablation photorefractive keratectomy, hemorrhoid sx Past Surgical History: Cholecystectomy, Cataract Removal Family History non contributory due to age Social History non smoker, no significant ETOH, no illicit drugs Current Medications Current Medications Enoxaparin Sodium (Lovenox) 40 mg Q24H SQ Last administered on 08/02/17t 17:31 ; Start 08/02/17 at 17:00 Iohexol (Omnipaque 240 Mg/ml) 50 ml STK-MED ONCE .ROUTE ; Start 08/02/17 at 16: 23; Stop 08/02/17 at 16:24; Status DC Iohexol (Omnipaque 300 Mg/ml) 75 ml 1X ONCE IV ; Start 08/02/17 at 16:45; Stop 08/02/17 at 16:46; Status DC Ondansetron HCl (Zofran Odt) 4 mg PRN Q6HRS PRN PO NAUSEA/VOMITING; Start 08/02 at 16:15 Clonazepam (KlonoPIN) 0.5 mg PRN BID PRN PO ANXIETY / AGITATION; Start at 16:15; Status UNV Sodium Chloride 1,000 ml @ 75 mls/hr [id number] IV Last administered on 05:10; Start 08/02/17 at 16:15 Ketoconazole (Nizoral 2% Topical) 1 lydia BID TP Last administered on 08/02/17 20:54; Start 08/02/17 at 21:00; Stop 08/16/17 at 20:59 Clonazepam (KlonoPIN) 0.5 mg PRN TID PRN PO ANXIETY / AGITATION; Start at 16:45 Zolpidem Tartrate (Ambien) 5 mg QHS PO Last administered on 08/02/17 20:54; Start 08/02/17 at 21:00 Aspirin (Children'S Aspirin) 81 mg DAILY PO ; Start 08/03/17 at 09:00 Hydrochlorothiazide (Microzide) 12.5 mg DAILY PO ; Start 08/03/17 at 09:00 Nitroglycerin (Nitrostat) 0.4 mg PRN Q5MIN PRN SL CHEST PAIN; Start 08/02/17 at 18:15 Prednisolone Acetate (Pred Forte) 1 drop QID OD Last administered on 08/02/17 20:55; Start 08/02/17 at 21:00 Sodium Chloride (Dara-5) 1 drop TID OD Last administered on 08/02/17 20:55; Start 08/02/17 at 21:00 Atorvastatin Calcium (Lipitor) 40 mg DAILY PO ; Start 08/02/17 at 09:00 Dorzolamide HCl (Trusopt) 1 drop BID OU Last administered on 08/02/17 20:54; Start 08/02/17 at 21:00 Pantoprazole Sodium (Protonix) 40 mg DAILY PO ; Start 08/03/17 at 09:00 Lisinopril (Prinivil) 20 mg DAILY PO ; Start 08/03/17 at 09:00 Non-Formulary Medication 1 each HS OP ; Start 08/02/17 at 21:00; Status UNV Clonazepam (KlonoPIN) 0.5 mg Q8HRS PRN PO ANXIETY / AGITATION; Start 08/02/17 at 18:15; Status UNV Iohexol (Omnipaque 240 Mg/ml) 50 ml STK-MED ONCE .ROUTE ; Start 08/03/17 at 06: 39; Stop 08/03/17 at 06:40; Status DC Iohexol (Omnipaque 300 Mg/ml) 75 ml 1X ONCE IV Last administered on 08/03/17t 07:57; Start 08/03/17 at 07:20; Stop 08/03/17 at 07:21; Status DC Active Scripts Active Nexium Capsule (Esomeprazole Magnesium) 20 Mg Capsule.dr 1 Cap PO DAILY Reported Zioptan 0.0015% Eye Drops (Tafluprost/Pf) 1 Each Droperette 1 Each OP HS Dara-128 (Sodium Chloride) 15 Ml Drops 15 Ml OD TID Pred Forte (Prednisolone Acetate) 1 Ml Drops.susp 1 Drop OD QID Azopt (Brinzolamide) 10 Ml Drops.susp 1 Drop EACHEYE BID Halcion (Triazolam) 0.25 Mg Tablet 1 Tab PO QHS NITROGLYCERIN SubLingual (Nitroglycerin) 0.4 Mg Tab.subl 0.4 Mg SL PRN Q5MIN PRN Atorvastatin Calcium 40 Mg Tablet 1 Tab PO DAILY Perindopril Erbumine 8 Mg Tablet 8 Mg PO DAILY Aspirin 81 Mg Tab.chew 81 Mg PO DAILY LAST DOSE GIVEN: DATE: 06/12 TIME: AM NEXT DOSE DUE: DATE: 06/13 TIME: AM Hydrochlorothiazide Tablet (Hydrochlorothiazide) 25 Mg Tablet 0.5 Tab PO DAILY LAST DOSE GIVEN: DATE: 06/12 TIME: AM NEXT DOSE DUE: DATE: 06/13 TIME: AM Allergies: Coded Allergies: etomidate (Verified Allergy, Severe, 09/06/15) "Seizure" like activity amoxicillin (Verified Allergy, Intermediate, 06/12/17) Cough ciprofloxacin (Verified Allergy, Intermediate, 06/12/17) Cough doxycycline (Verified Allergy, Intermediate, 08/02/17) propofol (Verified Allergy, Intermediate, 06/12/17) Cough & Sneeze Review of System as per HPI or negative General: Alert, Oriented X3, Cooperative, No acute distress HEENT: Atraumatic, EOMI, Mucous membr. moist/pink Lungs: Clear to auscultation, Normal air movement Heart: Regular rate, Normal S1, Normal S2, Other (no significant murmurs, clicks or rubs, no gallops) Abdomen: Normal bowel sounds, Soft Extremities: No cyanosis, No edema, Normal pulses Neuro: Normal speech, Strength at 5/5 X4 ext Psych/Mental Status: Mental status NL, Mood NL VITALS Vital Signs Date Time Temp Pulse Resp B/P (MAP) Pulse Ox O2 Delivery O2 Flow Rate FiO2 08/03/17 07:47 Room Air 08/03/17 05:24 98.1 72 20 135/66 (89) 97 Labs Laboratory Tests Test 08/02/17 16:30 08/02/17 22:04 08/03/17 06:09 White Blood Count 6.4 x10^3/uL (4.0-11.0) 5.6 x10^3/uL (4.0-11.0) Red Blood Count 4.62 x10^6/uL (4.30-5.70) 4.30 x10^6/uL (4.30-5.70) Hemoglobin 14.5 g/dL (13.0-17.5) 13.8 g/dL (13.0-17.5) Hematocrit 42.5 % (39.0-53.0) 39.2 % (39.0-53.0) Mean Corpuscular Volume 92 fL (79-100) 91 fL (79-100) Mean Corpuscular Hemoglobin 31 pg (25-35) 32 pg (25-35) Mean Corpuscular Hemoglobin Concent 34 g/dL (31-37) 35 g/dL (31-37) Red Cell Distribution Width 14.3 % (11.5-14.5) 14.3 % (11.5-14.5) Platelet Count 168 x10^3/uL (140-400) 152 x10^3/uL (140-400) Neutrophils (%) (Auto) 73 % (31-73) 62 % (31-73) Lymphocytes (%) (Auto) 12 % (24-48) 15 % (24-48) Monocytes (%) (Auto) 15 % (0-9) 21 % (0-9) Eosinophils (%) (Auto) 0 % (0-3) 1 % (0-3) Basophils (%) (Auto) 1 % (0-3) 1 % (0-3) Neutrophils # (Auto) 4.7 x10^3uL (1.8-7.7) 3.5 x10^3uL (1.8-7.7) Lymphocytes # (Auto) 0.7 x10^3/uL (1.0-4.8) 0.8 x10^3/uL (1.0-4.8) Monocytes # (Auto) 0.9 x10^3/uL (0.0-1.1) 1.2 x10^3/uL (0.0-1.1) Eosinophils # (Auto) 0.0 x10^3/uL (0.0-0.7) 0.1 x10^3/uL (0.0-0.7) Basophils # (Auto) 0.0 x10^3/uL (0.0-0.2) 0.1 x10^3/uL (0.0-0.2) D-Dimer (Sandra) 1.82 mg/L (0.00-0.50) Sodium Level 141 mmol/L (136-145) 143 mmol/L (136-145) Potassium Level 4.2 mmol/L (3.5-5.1) 3.7 mmol/L (3.5-5.1) Chloride Level 105 mmol/L (98-107) 109 mmol/L (98-107) Carbon Dioxide Level 29 mmol/L (21-32) 27 mmol/L (21-32) Anion Gap 7 (6-14) 7 (6-14) Blood Urea Nitrogen 26 mg/dL (8-26) 25 mg/dL (8-26) Creatinine 1.4 mg/dL (0.7-1.3) 1.3 mg/dL (0.7-1.3) Estimated GFR (Cockcroft-Gault) 48.3 52.6 BUN/Creatinine Ratio 19 (6-20) 19 (6-20) Glucose Level 85 mg/dL (70-99) 86 mg/dL (70-99) Calcium Level 8.9 mg/dL (8.5-10.1) 8.4 mg/dL (8.5-10.1) Magnesium Level 2.0 mg/dL (1.8-2.4) Total Bilirubin 1.0 mg/dL (0.2-1.0) 0.6 mg/dL (0.2-1.0) Aspartate Amino Transf (AST/SGOT) 41 U/L (15-37) 30 U/L (15-37) Alanine Aminotransferase (ALT/SGPT) 25 U/L (16-63) 23 U/L (16-63) Alkaline Phosphatase 89 U/L (46-116) 75 U/L (46-116) Creatine Kinase 75 U/L (39-308) 62 U/L (39-308) 60 U/L (39-308) Creatine Kinase MB (Mass) 1.5 ng/mL (0.0-3.6) 1.3 ng/mL (0.0-3.6) 1.0 ng/mL (0.0-3.6) Creatine Kinase MB Relative Index 2.0 % (0-4) 2.1 % (0-4) 1.7 % (0-4) Troponin I Quantitative < 0.017 ng/mL (0-0.055) < 0.017 ng/mL (0-0.055) < 0.017 ng/mL (0-0.055) Total Protein 6.6 g/dL (6.4-8.2) 5.6 g/dL (6.4-8.2) Albumin 3.9 g/dL (3.4-5.0) 3.3 g/dL (3.4-5.0) Albumin/Globulin Ratio 1.4 (1.0-1.7) 1.4 (1.0-1.7) Images EKG - sinus rhythm, early transition, non specific abnormalities, no acute ischemic changes CT chest - Impression: 1. No evidence of central pulmonary embolism. The evaluation of the distal segmental branches of the pulmonary arteries is limited. 2. Few mediastinal, bilateral axillary and retrocrural lymph nodes probably related to known history of lymphoma grossly similar to prior exam. 3. Chronic elevation of the left hemidiaphragm with left lung base atelectasis or scarring changes. 4. Coronary artery calcifications. CT abd/pelvis- Impression: 1. Multiple enlarged retroperitoneal and retrocrural lymph nodes identified. The largest conglomerate of retroperitoneal lymph nodes measures 4 cm. These enlarged lymph nodes surround the inferior vena cava and the aorta. This most likely is lymphoma given patient's history of lymphoma. PET CT scan may be useful for further evaluation. 2. Bilateral renal cysts. 3. Cholecystectomy changes. 4. Moderate prostatomegaly. Assessment/Plan 1. chest pain with known coronary disease as noted above - [place] ruled out and no acute ischemic changes on EKG. Recent echo with normal LV function and wall motion. Add Ranexa, check chemistry in 1 week. Follow up with dr Becerril Sunday as scheduled. 2. hypertension - controlled on current medical therapy. 3. hyperlipidemia - continue statin therapy, check lipids. 4. elevated D dimer - CT neg for PE. 5. lymphadenopathy - follow up per PCP Problems: NESTOR TAY APRN Aug 03, 2017 09:05
--- NOTE | 2017-08-03 09:18 | RAD ---
CHEST PA LATERAL Technique: PA and lateral views of the chest were obtained. Clinical History: CHEST PAIN Comparison: 06/11/2017. Findings: Right-sided Port-A-Cath is unchanged. Elevated left hemidiaphragm is identified. Left lung base airspace opacity likely atelectasis or scarring changes similar to prior exam.The heart and pulmonary vasculature appear within normal limits. Impression: No acute chest process is seen.
[2017-08-03 09:30] VITALS: BP 137/86
[2017-08-03] MEDS ORDERED: RANOLAZINE 500 MG TAB.ER.12H PO SCH (09:30)
[2017-08-03] MEDS: DORZOLAMIDE 2% OPHTH SOLUTION 10ML BOTTLE. OU SCH (09:33)
[2017-08-03] MEDS: SODIUM CHLORIDE 5% OPHTH SOLUTION 15ML BOTTLE. OD SCH ×2 (09:33→12:52)
[2017-08-03] MEDS: prednisoLONE ACETATE 1% OPHTH SUSPENSION 5ML BOTTLE. OD SCH ×2 (09:33→12:52)
[2017-08-03] MEDS: KETOCONAZOLE 2% TOPICAL CREAM 30GM TUBE. TP SCH (09:34)
[2017-08-03 09:36] VITALS: BP 135/66
[2017-08-03 10:50] LABS: BILIRUBIN,URINE NEG (NEG); CLARITY,URINE CLEAR; COLOR,URINE STRAW; GLUCOSE,URINE NEG (NEG)
[2017-08-03 10:51] LABS: BACTERIA,URINE 0 /HPF (0-FEW); NITRITE,URINE NEG (NEG); RBC,URINE RARE /HPF (0-2); SQUAMOUS EPITHELIAL CELL,UR OCC /LPF; UROBILINOGEN,URINE 1 mg/dL (0.2 mg/dL); WBC,URINE 0 /HPF (0-4)
[2017-08-03] MEDS ORDERED: KETO15CR2 TP (11:49)
[2017-08-03] MEDS ORDERED: CLON0.5T3 PO (11:49)
[2017-08-03] MEDS ORDERED: RANO500T2 PO (11:49)
== END 2017-08-03 13:30 | disposition home or self-care (01) ==
LOC: 1 SOUTH 15:44
PROVIDERS: ADMIT Family Medicine; ATTEND Family Medicine
DX: R07.9 Chest pain, unspecified (principal); I25.10 Atherosclerotic heart disease of native coronary artery without angina pectoris; I10 Essential (primary) hypertension; E78.5 Hyperlipidemia, unspecified; R59.1 Generalized enlarged lymph nodes; N28.1 Cyst of kidney, acquired; H40.9 Unspecified glaucoma; K21.9 Gastro-esophageal reflux disease without esophagitis; K22.70 Barrett's esophagus without dysplasia; N40.0 Benign prostatic hyperplasia without lower urinary tract symptoms; R79.1 Abnormal coagulation profile; Z85.72 Personal history of non-Hodgkin lymphomas
CPT/HCPCS: 36415; 71020; 71275; 74177; 80053; 80061; 81001; 82553; 83735; 84484; 85025; 85379; 93005; 96360; 96361; 96372; G0378; G0379; J1650; Q9967; J7030

== ENCOUNTER 2018-03-28 19:02 | Emergency (ER) | payer MEDICARE ==
[~2018-03-28] VITALS: Ht 180.3 cm; Wt 69.7 kg
[~2018-03-28 19:02] MED LIST changes: +CLON0.5T3 PO; +KETO15CR2 TP; +PRED1DRO OD; +RANO500T2 PO; +SODI15DR5 OD; +TAFL1DRO OP
[2018-03-28] MEDS ORDERED: DIPHTH,PERTUSS(ACELL),TET TOX 0.5 ML DISP.SYRIN. VAX IM ONE (19:30)
--- NOTE | 2018-03-28 20:25 | RAD ---
CT head, maxillofacial region, and cervical spine without contrast History: 333514.001 Injury from fall, headache, neck pain, facial lacerations, large amount of swelling to forehead. Technique: Noncontrast CT imaging was performed of the head, maxillofacial region, and cervical spine. Multiplanar reconstruction images are submitted. Exposure: One or more of the following individualized dose reduction techniques were utilized for this examination: 1. Automated exposure control 2. Adjustment of the mA and/or kV according to patient size 3. Use of iterative reconstruction technique. Head CT Comparison: None Findings: There is motion degradation. No acute extra-axial or parenchymal hemorrhage is identified. There is no significant intra-axial mass effect, midline shift, or extra-axial fluid collection. The kelley-white differentiation of the major vascular territories is preserved. Ventricular size is within normal limits, mild generalized supratentorial atrophy. Mastoid air cells are aerated. There is large right maxillary sinus mucous retention cyst. There is no significant focal calvarial abnormality. There is prominent frontal scalp hematoma eccentric to the right, no underlying calvarial fracture. Impression: 1. No acute intracranial abnormality is identified. There is frontal scalp hematoma greater on the right. Cervical spine CT Comparison: None Findings: No acute cervical spine fracture is identified. Vertebral body stature is maintained. There is minimal posterior subluxation C3 relative to C4 and grade 1 anterior spondylolisthesis at L5 and C7-T1. There is moderate to severe degenerative disc disease C3-4, C5-6, C6-7, C7-T1. There is multilevel spondylosis. Posterior central protrusion C4-5 likely results in canal stenosis C6-7 mm. There is disc osteophyte complex at C5-6 with resultant central canal stenosis about 7 mm, to a lesser degree at other levels. There is multilevel facet and uncovertebral degenerative change with multilevel cervical neural foramina compromise including more significant narrowing bilaterally at C3-C4, on the right at C4-C5, right greater than left at C5-6, left greater than right at C6-7. Atlanto-axial distance is within normal limits. There is appropriate alignment of lateral masses of C1 relative to C2. Occipital condylar-C1 relationship is maintained. There is mild cervical dextroscoliosis. Impression: 1. No acute cervical spine fracture is identified. 2. There is multilevel cervical degenerative disc disease, spondylosis, facet degenerative change, abnormal alignment. There is multilevel cervical spinal stenosis greatest C4-5 and C5-C6. There is multilevel cervical neural foramina compromise due to facet and uncovertebral degenerative change. Maxillofacial CT: FINDINGS: There are no air-fluid levels in the paranasal sinuses. No acute maxillofacial fracture is identified. IMPRESSION: 1. No acute maxillofacial fracture is identified. Electronically signed by: Wesley Ragsdale MD (03/28/2018 8:22 PM) [facility]
[2018-03-28] MEDS ORDERED: TETANUS AND DIPHTHERIA TOX/PF 0.5 ML VIAL. VAX IM ONE (20:45)
[2018-03-28] MEDS ORDERED: HYDR-971 PO (22:29)
--- NOTE | 2018-03-28 22:29 | PHYS DOC ---
Past History Past Medical History: Anxiety, Hypertension Past Surgical History: Cancer Surgery Alcohol Use: Occasionally Drug Use: None Adult General Chief Complaint Chief Complaint: MECHANICAL FALL HPI HPI 82-year-old male with a history of hypertension and anxiety now brought in by EMS after a fall in his driveway. Patient had no prodromal symptoms. He is very clear that he bent over to poultry picker his cat, Lost his balance and fell forward. Patient has an abrasion on his forehead. He did not lose consciousness. He does report some neck soreness. Denies back pain. Brought in by EMS with c-collar in place on a spinal board. She has some skin tears on his forearms and reports that his tetanus is not up-to-date. Denies chest pain or shortness of breath. No pelvic or lower extremity pain. Denies abdominal pain No other complaints Review of Systems Review of Systems Constitutional: Denies fever or chills [] Eyes: Denies change in visual acuity, redness, or eye pain [] HENT: Denies nasal congestion or sore throat [] Respiratory: Denies cough or shortness of breath [] Cardiovascular: No additional information not addressed in HPI [] GI: Denies abdominal pain, nausea, vomiting, bloody stools or diarrhea [] : Denies dysuria or hematuria [] Musculoskeletal: Denies back pain or joint pain [] Integument: Denies rash or skin lesions [] Neurologic: Denies headache, focal weakness or sensory changes [] Endocrine: Denies polyuria or polydipsia [] All other systems were reviewed and found to be within normal limits, except as documented in this note. Current Medications Current Medications Current Medications Medications (Trade) Dose Ordered Sig/Joanna Start Time Stop Time Status Last Admin Dose Admin Diphtheria/ Tetanus/Acell Pertussis (Boostrix) 0.5 ml ONCE ONCE 03/28/18 19:30 03/28/18 20:36 DC Fentanyl Citrate (Fentanyl 2ml Vial) 50 mcg 1X ONCE 03/28/18 20:15 03/28/18 20:27 DC 03/28/18 20:29 50 MCG Tetanus/ Diphtheria Toxoids Adsorbed (Tenivac Vial) 0.5 ml ONCE ONCE 03/28/18 20:45 03/28/18 20:46 DC 03/28/18 20:38 0.5 ML Allergies Allergies Allergies Coded Allergies Type Severity Reaction Last Updated Verified etomidate Allergy Severe 10/19/15 Yes amoxicillin Allergy Intermediate 06/12/17 Yes ciprofloxacin Allergy Intermediate 06/12/17 Yes doxycycline Allergy Intermediate 08/02/17 Yes propofol Allergy Intermediate 06/12/17 Yes Physical Exam Physical Exam Elderly male alert and communicative cooperative and appropriate. Mild soft tissue swelling forehead with abrasion. No bony tenderness or step-off of C- spine. In-line immobilization maintained during exam and collar replaced. No tenderness remainder of spine. Nontender chest wall clear lungs and normal respiratory rate and sounds bilaterally. Benign abdomen nontender stable pelvis. Normal lower extremities with no hip tenderness external rotation or shortening. Patient has mild skin tears bilateral forearms which are superficial. Constitutional: Well developed, well nourished, no acute distress, non-toxic appearance. [] HENT: Normocephalic, atraumatic, bilateral external ears normal, oropharynx moist, no oral exudates, nose normal. [] Eyes: PERRLA, EOMI, conjunctiva normal, no discharge. [] Neck: Normal range of motion, no tenderness, supple, no stridor. [] Cardiovascular:Heart rate regular rhythm, no murmur [] Lungs & Thorax: Bilateral breath sounds clear to auscultation [] Abdomen: Bowel sounds normal, soft, no tenderness, no masses, no pulsatile masses. [] Skin: As above Back: No tenderness, no CVA tenderness. [] Extremities: No tenderness, no cyanosis, no clubbing, ROM intact, no edema. [] Neurologic: Alert and oriented X 3, normal motor function, normal sensory function, no focal deficits noted. [] Psychologic: Affect normal, judgement normal, mood normal. [] Current Patient Data Vital Signs Vital Signs Date Time Temp Pulse Resp B/P (MAP) Pulse Ox O2 Delivery O2 Flow Rate FiO2 03/28/18 20:29 20 99 Room Air 03/28/18 19:02 98.2 67 EKG EKG [] Radiology/Procedures Radiology/Procedures X-ray chest and pelvis no acute disease no fractures interpreted by me[] Course & Med Decision Making Course & Med Decision Making Pertinent Labs and Imaging studies reviewed. (See chart for details) Patient with no evidence clinically of concussion. CT of the head unremarkable. Nonfocal neurologic exam. Tetanus updated. Dressings applied to skin tears as well as forehead abrasion. No further workup or treatment indicated. Patient feels improved and wants to go home. Is able to ambulate without difficulty. He agrees with outpatient follow-up and strict return precautions given [] Darian Disclaimer Darian Disclaimer This electronic medical record was generated, in whole or in part, using a voice recognition dictation system. Departure Departure: Impression: Primary Impression: Closed head injury Additional Impressions: Facial abrasion Facial contusion Skin tear [id number]-[id number] (DPT) vaccination administered at current visit Disposition: HOME, SELF-CARE Condition: IMPROVED Referrals: JHON FRAUSTO MD (PCP) Patient Instructions: Abrasions, Head Injury, Adult Additional Instructions: You've experienced a closed head injury today but the CAT scans of your head and facial bones show no fracture or intracranial injury. You have multiple abrasions, as well as skin tears of both arms, and these have been dressed with nonstick dressings and antibiotic ointment. The CAT scan of your neck shows no fractures lots of chronic bony changes common for a person of your age. Take ibuprofen every 6 hours. If you still have pain, take one Tylenol 3, which is Tylenol with Codeine, every 4-6 hours as needed. You been given a prescription for [place] which is hydrocodone, a narcotic, plus Tylenol. Uses tomorrow as needed for pain. Follow-up with Dr. العراقي tomorrow and return immediately for new severe or worsening symptoms. Scripts Hydrocodone Bit/Acetaminophen (NORCO 5-325 TABLET) 1 Each Tablet 1 TAB PO PRN Q6HRS PRN for PAIN, #16 TAB 0 Refills Prov: MARLYS CAAL MD 03/28/18 Problem Qualifiers MARLYS CAAL MD March 28, 2018 22:29
[2018-03-28] MEDS ORDERED: ACETAMINOPHEN/CODEINE 300/30MG 4TABLET STARTPACK. PO ONE (22:45)
[2018-03-28 22:59] VITALS: BP 139/83
--- NOTE | 2018-03-29 08:30 | RAD ---
AP pelvis, 03/28/2018: HISTORY: Fall, pelvic pain No fracture or dislocation is identified. There are mild degenerative changes at the hip joints. Moderate degenerative change is present in the lower lumbar spine. IMPRESSION: No acute pelvic abnormality is detected. AP chest, 03/28/2018: HISTORY: Fall, chest pain Comparison is made to a study from 08/02/2017. There is chronic elevation of the left hemidiaphragm. A right Port-A-Cath extends into the superior vena cava. The heart size and pulmonary vascularity are normal. There is calcific plaquing of the aorta. No pulmonary infiltrate is seen. There is no evidence of pleural fluid or pneumothorax. Moderate degenerative changes are evident in the thoracic spine. IMPRESSION: 1. Chronic findings as described above. 2. No acute cardiopulmonary abnormality is detected. Electronically signed by: Facundo Florence MD (03/29/2018 8:27 AM) [facility]
== END 2018-03-28 23:04 | disposition home or self-care (01) ==
LOC: ER 19:02
DX: S51.811A Laceration without foreign body of right forearm, initial encounter (principal); S00.03XA Contusion of scalp, initial encounter; S00.83XA Contusion of other part of head, initial encounter; I10 Essential (primary) hypertension; F41.9 Anxiety disorder, unspecified; Z88.4 Allergy status to anesthetic agent; Z88.1 Allergy status to other antibiotic agents; W01.198A Fall on same level from slipping, tripping and stumbling with subsequent striking against other object, initial encounter; Y93.89 Activity, other specified; Y99.8 Other external cause status; Y92.89 Other specified places as the place of occurrence of the external cause
CPT/HCPCS: 70450; 70486; 71045; 72125; 72170; 90471; 90714; 96374; 99284; J3010

== ENCOUNTER → 2018-10-14 | Outpatient (CLI) | payer MEDICARE ==
[~2018-10-14] MED LIST changes: +CLON0.5T11 PO; -CLON0.5T3 PO; +HYDR-2145 PO; +HYDR-3165 PO; -HYDR25TA9 PO
--- NOTE | 2018-10-14 17:37 | RAD ---
Right Lower Extremity Venous Doppler Ultrasound History: History of DVT right lower extremity Comparison: None Procedure: Color flow, duplex, spectral analysis and 2D images are obtained with and without compression in the area of the common femoral vein, superficial femoral vein - femoral vein junction, main femoral vein (superficial femoral vein) and popliteal vein. Veins of the proximal calf are also imaged. Findings: There is normal duplex flow, color flow and compressibility of all visualized vein segments. No evidence of deep venous thrombus is present. There is a 4.6 x 2.4 x 2.7 cm Rodríguez's cyst. Impression: No evidence of DVT. Electronically signed by: Freoz An III, MD (10/14/2018 5:34 PM) [facility]
== END | disposition home or self-care (01) ==
LOC: US 16:50
PROVIDERS: ATTEND Family Medicine
DX: Z09 Encounter for follow-up examination after completed treatment for conditions other than malignant neoplasm (principal); M71.21 Synovial cyst of popliteal space [Baker], right knee
CPT/HCPCS: 93971

== ENCOUNTER → 2019-02-12 | Outpatient (CLI) | payer MEDICARE ==
[~2019-02-12] MED LIST changes: +BRIM5DRO3 RIGHTEYE; +CARV6.25 PO; +LIDO700A39 TP; +MECL12.52 PO; +METO-239 PO; +PANT40TA3 PO; +SERT25TA PO; +TORS20TA2 PO
--- NOTE | 2019-02-12 09:13 | RAD ---
CT of the head without contrast, 02/12/2019: HISTORY: Dizziness, lightheadedness Comparison is made to a study from 03/28/2018. There is moderate cerebral atrophy. The ventricles are mildly enlarged on a compensatory basis. Similar findings were present on the previous study. There is no shift of the midline structures. There is no evidence of acute intracranial hemorrhage or mass effect. IMPRESSION: 1. Cerebral atrophy. 2. No acute intracranial abnormality is detected. PQRS Compliance Statement: One or more of the following individualized dose reduction techniques were utilized for this examination: 1. Automated exposure control 2. Adjustment of the mA and/or kV according to patient size 3. Use of iterative reconstruction technique Electronically signed by: Facundo Florence MD (02/12/2019 9:11 AM) [facility]
--- NOTE | 2019-02-12 09:53 | RAD ---
EXAM: Carotid Doppler sonogram. HISTORY: Hypertension. Dizziness. TECHNIQUE: Head scale and color Doppler sonographic evaluation of the neck with spectral waveform analysis was performed and static images are submitted for review. FINDINGS: There is mild atherosclerotic plaque within the left carotid bulb and proximal right internal and external carotid arteries. The peak systolic velocity within the right common carotid artery is 102 cm/sec. The peak systolic velocity within the right internal carotid artery is 59 cm/sec and the end diastolic velocity within the right internal carotid artery is 16 cm/sec. The right ICA/CCA ratio is 0.57. The peak systolic velocity within the left common carotid artery is 74 cm/sec. The peak systolic velocity within the left internal carotid artery is 46 cm/sec and the end diastolic velocity within the left internal carotid artery is 13 cm/sec. The left ICA/CCA ratio is 0.63. There is normal antegrade flow within both vertebral arteries. IMPRESSION: No Doppler evidence of hemodynamically significant stenosis within the carotid or vertebral arteries. PQRS Compliance Statement - Stenosis calculations for CT, MR and conventional angiography are based upon measurement of the distal ICA diameter in accordance with the NASCET methodology. Stenosis calculations for carotid ultrasound studies are derived from validated velocity criteria which are known to correlate with the NASCET methodology. Electronically signed by: Ashley Nieves MD (02/12/2019 9:50 AM) [place] [id number]
== END | disposition home or self-care (01) ==
LOC: US 08:43
PROVIDERS: ATTEND Family Medicine
DX: G31.9 Degenerative disease of nervous system, unspecified (principal); I70.8 Atherosclerosis of other arteries
CPT/HCPCS: 70450; 93880

== ENCOUNTER 2019-04-23 05:41 | Inpatient (IN) | payer MEDICARE ==
[~2019-04-23] VITALS: Ht 180.3 cm; Wt 73.2 kg
[~2019-04-23 05:41] MED LIST changes: -BRIM5DRO3 RIGHTEYE; -CARV6.25 PO; -LIDO700A39 TP; -MECL12.52 PO; -METO-239 PO; -PANT40TA3 PO; -SERT25TA PO; -TORS20TA2 PO
[2019-04-23] MEDS ORDERED: IV NORMAL SALINE 1,000ML 1,000 ML IV SCH (06:00)
--- NOTE | 2019-04-23 06:02 | PHYS DOC ---
Past History Past Medical History: Anxiety, Hypertension (BUNNY RODRÍGUEZ Jr. DO) Past Surgical History: Cancer Surgery (BUNNY RODRÍGUEZ Jr. DO) Alcohol Use: Occasionally Drug Use: None (BUNNY RODRÍGUEZ Jr. DO) Adult General Chief Complaint Chief Complaint: MECHANICAL FALL HPI HPI Patient is an 83-year-old male who arrives via EMS from home after reportedly falling this morning. Patient does indicate that he has had frequent falls over the last few months due to being unstable on his feet. Patient had fallen a couple of days ago in a parking lot and was seen by Dr. Frausto yesterday and had x-rays performed of his left shoulder. Patient indicates that despite being told that he had no fracture, he does indicate that he has a significant amount of pain in that shoulder. He rates that pain at an 8 out of 10. He also indicates that he has some pain in his left elbow and forearm. He denies having had any loss of consciousness associated with the falls. He denies any neck or back pain. Patient states that he just feels very weak when he gets up and is un stable.[] (BUNNY RODRÍGUEZ Jr. DO) Review of Systems Review of Systems Constitutional: Denies fever or chills [] Respiratory: Denies cough or shortness of breath [] Cardiovascular: No additional information not addressed in HPI [] GI: Denies abdominal pain, nausea, vomiting or diarrhea [] Musculoskeletal: Positive left shoulder and arm pain [] Integument: Positive bruising to left shoulder[] Neurologic: Denies headache, focal weakness or sensory changes [] All other systems were reviewed and found to be within normal limits, except as documented in this note. (BUNNY RODRÍGUEZ Jr. DO) Allergies Allergies Allergies Coded Allergies Type Severity Reaction Last Updated Verified etomidate Allergy Severe 09/06/15 Yes amoxicillin Allergy Intermediate 06/12/17 Yes ciprofloxacin Allergy Intermediate 06/12/17 Yes doxycycline Allergy Intermediate 08/02/17 Yes propofol Allergy Intermediate 06/12/17 Yes (BUNNY RODRÍGUEZ Jr. DO) Physical Exam Physical Exam Constitutional: Well developed, well nourished, no acute distress, non-toxic appearance. [] HENT: Normocephalic, atraumatic, bilateral external ears normal, oropharynx moist, no oral exudates, nose normal. [] Eyes: PERRLA, EOMI, conjunctiva normal, no discharge. [] Neck: Normal range of motion, no tenderness, supple, no stridor. [] Cardiovascular: Regular rate and rhythm[] Lungs & Thorax: Bilateral breath sounds clear to auscultation [] Abdomen: Bowel sounds normal, soft, no tenderness. [] Skin: Warm, dry, no erythema, no rash. There is significant area of ecchymosis noted to the anterior aspect of left shoulder [] Extremities: There is tenderness diffusely about the left shoulder with significantly decreased range of motion due to reported pain. [] Neurologic: Awake and alert, no focal deficits noted. [] (BUNNY RODRÍGUEZ Jr. DO) Physical Exam Constitutional: Well developed, well nourished, no acute distress, non-toxic appearance HENT: Normocephalic, atraumatic, oropharynx moist Eyes: PERRL, EOMI, conjunctiva normal, no discharge Neck: Normal range of motion, no midline tenderness, supple Cardiovascular: Heart rate normal, regular rhythm Lungs & Thorax: Bilateral breath sounds clear to auscultation, no wheezing, bilateral clavicles nontender Abdomen: Soft, no tenderness Skin: Warm, dry, no erythema, no rash, healing ecchymosis to left shoulder and anterior left chest wall Back: No midline tenderness, no CVA tenderness Extremities: No tenderness, pain with ROM of left shoulder, no deformity Neurologic: Alert and oriented X 3, normal motor function, normal sensory function, no focal deficits noted Psychologic: Affect normal, judgement normal, mood normal (MARLYS SMART DO) EKG EKG [] (BUNNY RODRÍGUEZ Jr. DO) EKG @0622 NSR at 72bpm, NO ST elevation (MARLYS SMART DO) Radiology/Procedures Radiology/Procedures [] (BUNNY RODRÍGUEZ Jr. DO) Radiology/Procedures PROCEDURE: CT HEAD AND CERVICAL SPINE WO EXAM: 1. CT HEAD WITHOUT CONTRAST. 2. CT CERVICAL SPINE WITHOUT CONTRAST. HISTORY: Headache and neck pain after a fall. TECHNIQUE: Computed tomography of the head and cervical spine was performed without intravenous contrast. COMPARISON: None. FINDINGS: There is no intracranial hemorrhage. Hypoattenuation within the periventricular white matter indicates mild chronic microangiopathic change. Prominence of the lateral ventricles and hemispheric sulci indicates moderate atrophy. There is a mucus retention cyst in the right maxillary sinus. There are changes of bilateral cataract surgery. The temporal bones are unremarkable. The calvarium reveals no suspicious lesions. There is less than 2 mm anterolisthesis at C4-5. 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 No fractures are identified. Degenerative disc disease is moderate to severe diffusely, except at C4-5 where it is mild. There is no prevertebral soft tissue swelling. At C2-3, there is a small posterior disc bulge. Uncovertebral osteoarthritis is mild on the right and moderate on the left. Facet osteoarthritis is mild on the left greater than right. Neural foraminal stenosis is moderate on the left and mild on the right. At C3-4, there is a moderate posterior disc-osteophyte complex. Central canal stenosis is at least mild. Uncovertebral osteoarthritis is moderate bilaterally. Neural foraminal stenosis is moderate to severe bilaterally. At C4-5, there is a moderate to large central disc herniation measuring 7 mm anteroposteriorly. Facet and uncovertebral osteoarthritis is moderate to severe bilaterally. Neural foraminal stenosis is moderate on the left and moderate to severe on the right. Central canal stenosis is mild. At C5-6, there is a moderate to large posterior disc-osteophyte complex. Central canal stenosis is mild. Uncovertebral osteoarthritis is moderate to severe on the right greater than left. Neural foraminal stenosis is moderate on the left and moderate to severe on the right. At C6-7, there is a moderate posterior disc-osteophyte complex. Uncovertebral osteoarthritis is moderate on the right greater than left. Neural foraminal stenosis is moderate to severe on the right and moderate on the left. At C7-T1, right facet osteoarthritis is moderate to severe. IMPRESSION: 1. No acute intracranial findings. 2. Moderate atrophy and mild chronic microangiopathic white matter change. 3. No cervical fracture or acute malalignment. 4. Moderate to severe diffuse cervical degenerative changes result in diffuse at least mild central canal stenosis and diffuse moderate to severe neural foraminal stenosis as detailed above. MRI could further evaluate stenosis if there is persistent concern. *One or more of the following individualized dose reduction techniques were utilized for this examination: 1. Automated exposure control. 2. Adjustment of the mA and/or kV according to patient size. 3. Use of iterative reconstruction technique. Electronically signed by: Connor Bullock MD (04/23/2019 7:58 AM) [facility] EXAM: 1. CHEST 2 VIEWS. 2. LEFT SHOULDER 3 VIEWS. HISTORY: Chest and left shoulder pain after a fall. COMPARISON: 03/28/2018. FINDINGS: A right-sided port catheter has its tip in the superior cavoatrial junction. The left hemidiaphragm is moderately elevated with left basilar atelectasis. There are no confluent infiltrates. There is no pneumothorax or pleural effusion. The heart is not enlarged. There are atherosclerotic calcifications of the aorta. No fractures are appreciated about the left shoulder. Glenohumeral joint spaces and alignment appear maintained. 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 Inferiorly directed clavicular spurs measure up to 4 mm. There is moderate lateral acromial downsloping. IMPRESSION: 1. No fracture or malalignment. 2. Acromioclavicular morphology suggesting impingement. 3. Stable moderate elevation of the left hemidiaphragm with left basilar atelectasis. Electronically signed by: Connor Bullock MD (04/23/2019 7:48 AM) [facility] (MARLYS SMART DO) Course & Med Decision Making Course & Med Decision Making Pertinent Labs and Imaging studies reviewed. (See chart for details) Patient moved to room upon arrival was evaluated by the ER medical staff after which a workup was initiated to include blood work and UA. At this time, patient's workup is pending and patient is being signed out to the oncoming ER physician, Dr. Smart. (BUNNY RODRÍGUEZ Jr., DO) Course & Med Decision Making 0600- Sign out received from Dr. Rodríguez for elderly patient presents with report of generalized weakness with frequent falls. Patient seen and evaluated by myself. Patient neurologically intact. NIHSS 0. Labs reviewed. EKG stable. CT head/cervical spine without acute process. XR chest and left shoulder also stable. Concern for continued weakness and reoccurring falls. Patient requiring admission for further evaluation and treatment. Discussed with Dr. Frausto (PCP) who is in agreement with admission. Discussed findings and plan with patient, who acknowledges understanding and agreement. (MARLYS SMART DO) Dragon Disclaimer Dragon Disclaimer This electronic medical record was generated, in whole or in part, using a voice recognition dictation system. (BUNNY RODRÍGUEZ Jr., DO) Departure Departure: Impression: Primary Impression: Weakness Additional Impressions: Left shoulder strain Contusion Disposition: ADMITTED INPATIENT Admitting Physician: Jhon Frausto (MARLYS SMART DO) Condition: STABLE Referrals: JHON FRAUSTO MD (PCP) NIHSS - ED NIH Stroke Scale: NIH Stroke Scale Response (Comments) Value Level of Consciousness: 0 Alert/Responsive 0 LOC Questions: 0 Answers both correctly 0 LOC Commands: 0 Performs both tasks 0 Best Gaze: 0 Normal 0 Visual: 0 No visual loss 0 Facial Palsy: 0 Normal, symmetrical 0 Motor - Left Arm 0 No drift 0 Motor - Right Arm 0 No drift 0 Motor - Left Leg 0 No drift 0 Motor: Right Leg 0 No drift 0 Limb Ataxia: 0 Absent 0 Sensory: 0 No loss 0 Best Language: 0 Normal 0 Dysathria: 0 Normal 0 Extinction and Inattention: 0 Normal 0 Total 0 Problem Qualifiers Additional Impressions: Left shoulder strain Encounter type: initial encounter Qualified Codes: S46.912A - Strain of unspecified muscle, fascia and tendon at shoulder and upper arm level, left arm, initial encounter Contusion Encounter type: initial encounter Contusion area: shoulder Laterality: left Qualified Codes: S40.012A - Contusion of left shoulder, initial encounter BUNNY RODRÍGUEZ Jr., DO Apr 23, 2019 06:01 MARLYS SMART DO Apr 23, 2019 06:50
--- NOTE | 2019-04-23 06:29 | EKG ---
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
[2019-04-23] MEDS ORDERED: NEOMY/BACITR/POLYMYXIN OINT PACKET. TP ONE (06:45)
[2019-04-23 06:53] LABS: BASO # 0.1 x10^3/uL (0.0-0.2); BASO % 1 % (0-3); EOS % 0 % (0-3); HEMATOCRIT 44.8 % (39.0-53.0); HEMOGLOBIN 14.8 g/dL (13.0-17.5); LYMPH # 0.4 x10^3/uL (1.0-4.8); LYMPH % 3 % (24-48); MEAN CORPUSCULAR HEMOGLOBIN 30 pg (25-35); MEAN CORPUSCULAR HGB CONC 33 g/dL (31-37); MEAN CORPUSCULAR VOLUME 92 fL (79-100); MONO # 2.2 x10^3/uL (0.0-1.1); MONO % 18 % (0-9); NEUT # 9.4 x10^3uL (1.8-7.7); NEUT % 78 % (31-73); PLATELET COUNT 150 x10^3/uL (140-400); RED BLOOD COUNT 4.86 x10^6/uL (4.30-5.70); RED CELL DISTRIBUTION WIDTH 15.4 % (11.5-14.5); WHITE BLOOD COUNT 12.1 x10^3/uL (4.0-11.0)
[2019-04-23 07:09] LABS: ALBUMIN 3.4 g/dL (3.4-5.0); CALCIUM 8.9 mg/dL (8.5-10.1); CREATININE 1.2 mg/dL (0.7-1.3); DIRECT BILIRUBIN 0.3 mg/dL (0.0-0.2); GFR 57.5; MAGNESIUM 2.1 mg/dL (1.8-2.4); POTASSIUM 3.7 mmol/L (3.5-5.1); TOTAL BILIRUBIN 1.3 mg/dL (0.2-1.0); TOTAL PROTEIN 6.6 g/dL (6.4-8.2)
[2019-04-23] MEDS ORDERED: ONDANSETRON PF 4 MG/2 ML VIAL. IV PRN (07:45)
[2019-04-23] MEDS ORDERED: ACETAMINOPHEN 325 MG TABLET PO PRN (07:45)
--- NOTE | 2019-04-23 07:51 | RAD ---
EXAM: 1. CHEST 2 VIEWS. 2. LEFT SHOULDER 3 VIEWS. HISTORY: Chest and left shoulder pain after a fall. COMPARISON: 03/28/2018. FINDINGS: A right-sided port catheter has its tip in the superior cavoatrial junction. The left hemidiaphragm is moderately elevated with left basilar atelectasis. There are no confluent infiltrates. There is no pneumothorax or pleural effusion. The heart is not enlarged. There are atherosclerotic calcifications of the aorta. No fractures are appreciated about the left shoulder. Glenohumeral joint spaces and alignment appear maintained. 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 Inferiorly directed clavicular spurs measure up to 4 mm. There is moderate lateral acromial downsloping. IMPRESSION: 1. No fracture or malalignment. 2. Acromioclavicular morphology suggesting impingement. 3. Stable moderate elevation of the left hemidiaphragm with left basilar atelectasis. Electronically signed by: Connor Bullock MD (04/23/2019 7:48 AM) [facility]
--- NOTE | 2019-04-23 08:00 | RAD ---
EXAM: 1. CT HEAD WITHOUT CONTRAST. 2. CT CERVICAL SPINE WITHOUT CONTRAST. HISTORY: Headache and neck pain after a fall. TECHNIQUE: Computed tomography of the head and cervical spine was performed without intravenous contrast. COMPARISON: None. FINDINGS: There is no intracranial hemorrhage. Hypoattenuation within the periventricular white matter indicates mild chronic microangiopathic change. Prominence of the lateral ventricles and hemispheric sulci indicates moderate atrophy. There is a mucus retention cyst in the right maxillary sinus. There are changes of bilateral cataract surgery. The temporal bones are unremarkable. The calvarium reveals no suspicious lesions. There is less than 2 mm anterolisthesis at C4-5. 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 No fractures are identified. Degenerative disc disease is moderate to severe diffusely, except at C4-5 where it is mild. There is no prevertebral soft tissue swelling. At C2-3, there is a small posterior disc bulge. Uncovertebral osteoarthritis is mild on the right and moderate on the left. Facet osteoarthritis is mild on the left greater than right. Neural foraminal stenosis is moderate on the left and mild on the right. At C3-4, there is a moderate posterior disc-osteophyte complex. Central canal stenosis is at least mild. Uncovertebral osteoarthritis is moderate bilaterally. Neural foraminal stenosis is moderate to severe bilaterally. At C4-5, there is a moderate to large central disc herniation measuring 7 mm anteroposteriorly. Facet and uncovertebral osteoarthritis is moderate to severe bilaterally. Neural foraminal stenosis is moderate on the left and moderate to severe on the right. Central canal stenosis is mild. At C5-6, there is a moderate to large posterior disc-osteophyte complex. Central canal stenosis is mild. Uncovertebral osteoarthritis is moderate to severe on the right greater than left. Neural foraminal stenosis is moderate on the left and moderate to severe on the right. At C6-7, there is a moderate posterior disc-osteophyte complex. Uncovertebral osteoarthritis is moderate on the right greater than left. Neural foraminal stenosis is moderate to severe on the right and moderate on the left. At C7-T1, right facet osteoarthritis is moderate to severe. IMPRESSION: 1. No acute intracranial findings. 2. Moderate atrophy and mild chronic microangiopathic white matter change. 3. No cervical fracture or acute malalignment. 4. Moderate to severe diffuse cervical degenerative changes result in diffuse at least mild central canal stenosis and diffuse moderate to severe neural foraminal stenosis as detailed above. MRI could further evaluate stenosis if there is persistent concern. *One or more of the following individualized dose reduction techniques were utilized for this examination: 1. Automated exposure control. 2. Adjustment of the mA and/or kV according to patient size. 3. Use of iterative reconstruction technique. Electronically signed by: Connor Bullock MD (04/23/2019 7:58 AM) [facility]
[2019-04-23 08:21] LABS: BILIRUBIN,URINE NEG (NEG); CLARITY,URINE CLEAR; COLOR,URINE YELLOW; GLUCOSE,URINE NEG (NEG)
[2019-04-23 08:22] LABS: BACTERIA,URINE 0 /HPF (0-FEW); NITRITE,URINE NEG (NEG); UROBILINOGEN,URINE 1 mg/dL (0.2 mg/dL); WBC,URINE 0 /HPF (0-4)
[2019-04-23] MEDS ORDERED: TORS20TA2 PO (09:27)
[2019-04-23] MEDS ORDERED: METO-239 PO (09:27)
[2019-04-23] MEDS ORDERED: ATOR40TA59 PO (09:27)
[2019-04-23] MEDS ORDERED: ISOS30TA4 PO (09:27)
[2019-04-23] MEDS ORDERED: MECL12.52 PO (09:27)
--- NOTE | 2019-04-23 09:38 | NUR ---
The patient, DONNELL CONKLIN, 83 y/o, M admitted by JHON FRAUSTO MD, was given written information regarding hospital policies, unit procedures and contact persons. Valuables were checked and admission assessment performed. pt is alert and orientated, stated that he fell this morning in the bathroom and had previous falls this last week. pt does have some bruising (healing and new) on the left shoulder and left arm. pt does have an abrasion on the left posterior forearm, not open but scabbed over and pt denies pain. pt has fluids running, ns at 100ml/hr, on room air, lungs are diminished, vss. pt eating breakfast and sitting up with at side. will ctm.
[2019-04-23 09:42] VITALS: BP 155/83
[2019-04-23] MEDS ORDERED: SERT25TA PO (09:43)
[2019-04-23] MEDS ORDERED: NITR0.4T22 SL (09:43)
[2019-04-23] MEDS ORDERED: BRIM5DRO3 RIGHTEYE (09:45)
[2019-04-23] MEDS ORDERED: NITROGLYCERIN SUBLINGUAL 0.4 MG BOTTLE OF 25. SL PRN (10:15)
[2019-04-23] MEDS ORDERED: ZOLPIDEM 5 MG TABLET. PO PRN (11:15)
[2019-04-23] MEDS: METOPROLOL SUCC 24HR ER 25 MG TAB.ER.24H. PO SCH (11:23)
[2019-04-23] MEDS: ISOSORBIDE MONONITRATE ER 30 MG TAB.ER.24H PO SCH (11:23)
[2019-04-23] MEDS: TORSEMIDE 20 MG TABLET. PO SCH (11:23)
[2019-04-23] MEDS: ASPIRIN 81 MG TAB.CHEW PO SCH (11:23)
[2019-04-23] MEDS: PANTOPRAZOLE 40 MG TABLET. PO SCH (11:23)
[2019-04-23] MEDS ORDERED: IOHEXOL 240 MG/ML 50ML VIAL. ONE (12:47)
[2019-04-23] MEDS ORDERED: prednisoLONE ACETATE 1% OPHTH SUSPENSION 5ML BOTTLE. OD SCH (13:00)
[2019-04-23] MEDS ORDERED: IOHEXOL 300 MG/ML 75 ML VIAL. IV ONE (13:45)
[2019-04-23 16:06] VITALS: BP 149/86
--- NOTE | 2019-04-23 17:01 | RAD ---
Examination: CT of the abdomen pelvis with IV and oral contrast HISTORY: History of weight loss, lymphoma COMPARISON: 08/03/2017 TECHNIQUE: Axial CT images of the abdomen pelvis were performed with oral and IV contrast. Coronal and sagittal reformats are performed Exposure: One or more of the following individualized dose reduction techniques were utilized for this examination: 1. Automated exposure control 2. Adjustment of the mA and/or kV according to patient size 3. Use of iterative reconstruction technique FINDINGS: Elevated left hemidiaphragm. Minimal right lung base atelectasis. No evidence of free air identified in the abdomen. The visualized liver, spleen, adrenals grossly appears unremarkable. Cholecystectomy clips identified. The stomach is mildly distended The small bowel is nondilated. Feces and gas noted throughout the colon. Multiple colonic diverticulosis. Moderately enlarged prostate gland. Urinary bladder is mildly distended. No radiologically significant inguinal, pelvic or retroperitoneal lymphadenopathy identified. The bilateral kidneys enhance symmetrically. Multiple cystic extends identified in the bilateral kidneys the largest in the left kidney measuring 6.5 cm likely cysts. Moderate degenerative changes lumbar spine. Partially visualized minimal fat stranding identified in the lower abdominal flanks in the subcutaneous region probably nonspecific edema. IMPRESSION: 1. No acute intra-abdominal findings 2. No radiologically significant lymphadenopathy identified. 3. Multiple colonic diverticulosis. Electronically signed by: River Mirza MD (04/23/2019 4:57 PM) [place] [id number]
[2019-04-23 19:24] VITALS: BP 147/86
--- NOTE | 2019-04-23 19:31 | HP ---
ADMIT DATE: 04/23/2019 HISTORY OF PRESENT ILLNESS: An 83-year-old male came in through the Emergency Room. Apparently, he has had several falls, of late injuring his left shoulder and just falling fairly frequently, unstable on his feet, had fallen a couple of days ago in parking lot. In any case, the patient fell again this morning, rates his pain as 8/10. Also, some pain in his left elbow. He denies any loss of consciousness, although he does have some diffuse bruising from the fall itself. PAST MEDICAL HISTORY: Includes cataracts, glaucoma, angina with angioplasty, coronary artery disease, cardiac surgery, cardiac catheterization, stent placement, hypertension, Cortez's esophagus, hemorrhoids. He had a cholecystectomy, hemorrhoidectomy, generalized anxiety, cancer, lymphoma. He is on treatment every other month, has a port in his chest, skin cancer chemotherapy. IMMUNIZATIONS: Flu and Pneumococcal are up-to-date. ALLERGIES: He has ALLERGIES TO AMOXICILLIN, CIPRO, DOXYCYCLINE, PROPOFOL CAUSES HIM TO SNEEZE and COUGH and ETOMIDATE. SOCIAL HISTORY: The patient denies smoking, does occasional drink. He is a full code. FAMILY HISTORY: Unremarkable. MEDICATIONS: Are meclizine 12.5, Pred Forte for his eyes, Zioptan for his eyes, Zoloft 25, Alphagan eye drops, Lipitor 40, Ambien 5, torsemide 5, Protonix 40, aspirin 81, metoprolol 25, isosorbide mononitrate 15, Nitrostat, Zofran and Tylenol. REVIEW OF SYSTEMS: The patient has some bruises and reports his left shoulder hurts quite a bit. He denies shortness of breath, chest pain. Denies any melena, hematochezia, or hematemesis. Neurologically stable for him except when he is walking. PHYSICAL EXAMINATION: GENERAL: The patient otherwise on examination is a pleasant white male, looks a little bit weaker than he usually does. VITAL SIGNS: Blood pressure 158/83, respiratory rate 20, pulse 73, afebrile. The patient's oxygen sat is 96%. HEENT: The patient's head was atraumatic, normocephalic. Mouth and throat: Dry mucous membranes. Eyes were PERRLA. NECK: Fairly supple although he has some muscle spasm in the left trapezius part. The patient also was noted to have marked bruising, ecchymoses to the upper left chest wall and shoulder area. He had fallen previously, had limited range of motion of that area as well and a repeat x-ray of that area showed no fracture, some left basilar atelectasis. LUNGS: Diminished, but clear. CARDIOVASCULAR: Regular sinus rhythm, S1, S2. ABDOMEN: Soft, nontender. EXTREMITIES: No clubbing, cyanosis, no edema. Some bruising on the knees. Pulses are noted distally. NEUROLOGIC: Alert and oriented. Speech is fluent, spontaneous, appropriate. Cranial nerves 2 through 10 basically are unremarkable. The patient otherwise is resting fairly comfortably and making stable progress. He will continue to be monitored, concern that his lymphoma is causing a possible neuropathy and we will have Dr. Silva, neurologist see him. He also had blood in his urine. IMPRESSION: Multiple falls, generalized weakness, history of lymphoma, hematuria, elevated bilirubin, leukocytosis. PLAN: Continue to monitor the patient, accordingly further evaluation on him per those results of the CT of his abdomen and pelvis are pending. JHON FRAUSTO MD DR: TWYLA/alejandra JOB#: [id number] / [id number]
[2019-04-23] MEDS: TAFLUPROST OP SCH (21:00)
[2019-04-23] MEDS: BRIMONIDINE 0.2% OPHTH SOLUTION 5ML BOTTLE. OD SCH (21:09)
[2019-04-23] MEDS: ATORVASTATIN CALCIUM 20 MG TABLET PO SCH (21:09)
[2019-04-23] MEDS: SERTRALINE 25 MG TABLET. PO SCH (21:09)
[2019-04-23] MEDS: prednisoLONE ACETATE 1% OPHTH SUSPENSION 5ML BOTTLE. OD SCH (21:09)
[2019-04-23 23:36] VITALS: BP 150/87
[2019-04-24 05:03] VITALS: BP 173/83
[2019-04-24 06:43] VITALS: BP 165/81
[2019-04-24 07:02] LABS: BASO # 0.1 x10^3/uL (0.0-0.2); BASO % 1 % (0-3); EOS # 0.1 x10^3/uL (0.0-0.7); EOS % 1 % (0-3); LYMPH # 0.7 x10^3/uL (1.0-4.8); LYMPH % 7 % (24-48); MEAN CORPUSCULAR HEMOGLOBIN 31 pg (25-35); MEAN CORPUSCULAR HGB CONC 33 g/dL (31-37); MEAN CORPUSCULAR VOLUME 91 fL (79-100); MONO % 20 % (0-9); NEUT # 7.1 x10^3uL (1.8-7.7); NEUT % 71 % (31-73); PLATELET COUNT 152 x10^3/uL (140-400); RED BLOOD COUNT 4.59 x10^6/uL (4.30-5.70); RED CELL DISTRIBUTION WIDTH 15.5 % (11.5-14.5)
[2019-04-24 07:27] LABS: ALBUMIN 3.1 g/dL (3.4-5.0); CALCIUM 8.5 mg/dL (8.5-10.1); CREATININE 1.1 mg/dL (0.7-1.3); GFR 63.6; POTASSIUM 3.5 mmol/L (3.5-5.1); TOTAL BILIRUBIN 1.2 mg/dL (0.2-1.0); TOTAL PROTEIN 6.1 g/dL (6.4-8.2)
[2019-04-24] MEDS: PANTOPRAZOLE 40 MG TABLET. PO SCH (07:37)
[2019-04-24] MEDS: ISOSORBIDE MONONITRATE ER 30 MG TAB.ER.24H PO SCH (07:40)
[2019-04-24] MEDS: METOPROLOL SUCC 24HR ER 25 MG TAB.ER.24H. PO SCH (07:40)
[2019-04-24] MEDS: ASPIRIN 81 MG TAB.CHEW PO SCH (07:40)
[2019-04-24] MEDS: MECLIZINE 12.5 MG TABLET. PO SCH (07:40)
[2019-04-24] MEDS: TORSEMIDE 20 MG TABLET. PO SCH (07:41)
[2019-04-24] MEDS: BRIMONIDINE 0.2% OPHTH SOLUTION 5ML BOTTLE. OD SCH ×2 (07:42→21:16)
[2019-04-24] MEDS: prednisoLONE ACETATE 1% OPHTH SUSPENSION 5ML BOTTLE. OD SCH ×2 (07:42→21:16)
[2019-04-24 11:55] VITALS: BP 117/73
[2019-04-24 16:43] VITALS: BP 128/75
[2019-04-24 19:12] VITALS: BP 174/90
[2019-04-24] MEDS: TAFLUPROST OP SCH (21:00)
[2019-04-24] MEDS: ATORVASTATIN CALCIUM 20 MG TABLET PO SCH (21:16)
[2019-04-24] MEDS: SERTRALINE 25 MG TABLET. PO SCH (21:16)
--- NOTE | 2019-04-25 00:38 | PN ---
DATE: SUBJECTIVE: This is an 83-year-old male in for multiple falls. The patient is resting fairly comfortably. He is still very unsteady on his feet and the patient having problems with mobilizing safely. PT, OT is working with him. He had hematuria. CT scan does not demonstrate any particular reason for his microscopic hematuria. PHYSICAL EXAMINATION: VITAL SIGNS: The patient's blood pressure down to 128/75, respiratory rate 18, pulse 65, afebrile. GENERAL: The patient is alert and oriented. LUNGS: Diminished, but clear. CARDIOVASCULAR: Stable. ABDOMEN: Soft, nontender. PLAN: The patient trouble with his gait and otherwise continued to be monitored carefully, make further evaluation on him with PT, OT, possible skilled unit possible. JHON FRAUSTO MD DR: TWYLA/alejandra JOB#: [id number] / [id number]
[2019-04-25 01:27] VITALS: BP 174/94
[2019-04-25 05:48] VITALS: BP_SYST 180; BP_SYST 198; BP_DIAS 102; BP_DIAS 92
[2019-04-25] MEDS: PANTOPRAZOLE 40 MG TABLET. PO SCH (07:30)
[2019-04-25] MEDS: TORSEMIDE 20 MG TABLET. PO SCH (08:26)
[2019-04-25] MEDS: MECLIZINE 12.5 MG TABLET. PO SCH (08:28)
[2019-04-25] MEDS: METOPROLOL SUCC 24HR ER 25 MG TAB.ER.24H. PO SCH (08:29)
[2019-04-25] MEDS: ASPIRIN 81 MG TAB.CHEW PO SCH (08:30)
[2019-04-25] MEDS: ISOSORBIDE MONONITRATE ER 30 MG TAB.ER.24H PO SCH (08:31)
[2019-04-25] MEDS: BRIMONIDINE 0.2% OPHTH SOLUTION 5ML BOTTLE. OD SCH ×2 (08:33→20:30)
[2019-04-25] MEDS: prednisoLONE ACETATE 1% OPHTH SUSPENSION 5ML BOTTLE. OD SCH ×2 (08:33→20:30)
[2019-04-25] MEDS ORDERED: ZOLPIDEM 5 MG TABLET. PO PRN (09:30)
[2019-04-25] MEDS ORDERED: METOPROLOL SUCC 24HR ER 25 MG TAB.ER.24H. PO ONE (10:30)
[2019-04-25] MEDS ORDERED: METOPROLOL SUCC 24HR ER 50 MG TAB.ER.24H. PO ONE (10:30)
[2019-04-25] MEDS: CARVEDILOL 6.25 MG TABLET PO SCH ×2 (10:30→17:12)
[2019-04-25 11:30] VITALS: BP 102/66
[2019-04-25 15:18] VITALS: BP 166/72
--- NOTE | 2019-04-25 15:47 | PN ---
DATE: 04/25/2019 The patient of course came in with generalized weakness, multiple falls, and injuring his left shoulder. The patient is having difficulty walking and also with high blood pressure. OBJECTIVE: VITAL SIGNS: Blood pressure was as high as 180/92, has come down to 102/60, respiratory rate 20, pulse 60 and afebrile. HEENT: The patient's head was atraumatic, normocephalic. Eyes: PERRLA without jaundice. Mouth and throat were normal. NECK: Supple, without JVD. LUNGS: Clear. CARDIOVASCULAR: Stable. GENERAL: The patient has still marked weakness, still receiving aggressive PT, OT. IMPRESSION: Generalized weakness, multiple falls, contusion to left shoulder, hypertension, urgency and moderate protein malnutrition. PLAN: Continue with aggressive therapy and have him ready for possible discharge to skilled unit tomorrow. JHON FRAUSTO MD DR: TWYLA/alejandra JOB#: [id number] / [id number]
[2019-04-25 19:51] VITALS: BP 144/81
[2019-04-25] MEDS: ATORVASTATIN CALCIUM 20 MG TABLET PO SCH (20:29)
[2019-04-25] MEDS: SERTRALINE 25 MG TABLET. PO SCH (20:30)
[2019-04-25] MEDS: TAFLUPROST OP SCH (20:33)
[2019-04-25 23:16] VITALS: BP 90/50
[2019-04-26 05:23] VITALS: BP 124/69
[2019-04-26] MEDS: ASPIRIN 81 MG TAB.CHEW PO SCH (08:08)
[2019-04-26] MEDS: MECLIZINE 12.5 MG TABLET. PO SCH (08:08)
[2019-04-26] MEDS: METOPROLOL SUCC 24HR ER 25 MG TAB.ER.24H. PO SCH (08:08)
[2019-04-26] MEDS: PANTOPRAZOLE 40 MG TABLET. PO SCH (08:09)
[2019-04-26] MEDS: TORSEMIDE 20 MG TABLET. PO SCH (08:09)
[2019-04-26] MEDS: ISOSORBIDE MONONITRATE ER 30 MG TAB.ER.24H PO SCH (08:10)
[2019-04-26 08:11] VITALS: BP 124/69
[2019-04-26] MEDS: BRIMONIDINE 0.2% OPHTH SOLUTION 5ML BOTTLE. OD SCH (08:11)
[2019-04-26] MEDS: prednisoLONE ACETATE 1% OPHTH SUSPENSION 5ML BOTTLE. OD SCH (08:11)
[2019-04-26] MEDS: CARVEDILOL 6.25 MG TABLET PO SCH (08:11)
--- NOTE | 2019-04-26 09:59 | DS ---
DATE OF DISCHARGE: 04/26/2019 HOSPITAL COURSE: An 83-year-old gentleman in with generalized weakness has been falling quite a bit and has completed some hydration. He has a history of lymphoma. The patient otherwise seems to be making good progress, but he still needs to be skilled. PHYSICAL EXAMINATION: VITAL SIGNS: Blood pressure erratic, presently a little better at 124/70, respiratory rate 16, pulse 80, afebrile. GENERAL: Alert and oriented. LUNGS: Clear. CARDIOVASCULAR: Regular sinus rhythm. ABDOMEN: Soft, nontender. EXTREMITIES: Without clubbing, cyanosis, nor edema. Left shoulder is very sore and having difficulty with movement, but he does have PT/OT to help him with walking as well as working on that shoulder. IMPRESSION: Multiple falls, generalized weakness, atactic gait, contusion of the shoulder, history of lymphoma, dehydration, hypertensive urgency. PLAN: As above. He will be transferred to the skilled unit today. JHON FRAUSTO MD DR: TWYLA/alejandra JOB#: [id number] / [id number]
[2019-04-26] MEDS ORDERED: LIDOCAINE (700MG/PATCH) PATCH. TD SCH (10:00)
--- NOTE | 2019-04-26 11:00 | NUR ---
Patient is D/C to SNU. Patient's tele monitor removed. Patient is escorted by staff to room 131.
[2019-04-26] MEDS ORDERED: CARV6.25 PO (11:31)
[2019-04-26] MEDS ORDERED: SERT25TA PO (11:35)
[2019-04-26] MEDS ORDERED: PANT40TA3 PO (11:35)
[2019-04-26] MEDS ORDERED: LIDO700A39 TP (11:35)
== END 2019-04-26 11:00 | DRG 605 ==
LOC: ER 05:41 → ICU 07:45 → 1 SOUTH 19:10 → LND 04-26 10:57
PROVIDERS: ADMIT Family Medicine; ATTEND Family Medicine
DX: S40.012A Contusion of left shoulder, initial encounter (principal); E44.0 Moderate protein-calorie malnutrition; J98.11 Atelectasis; E86.0 Dehydration; I16.0 Hypertensive urgency; S46.912A Strain of unspecified muscle, fascia and tendon at shoulder and upper arm level, left arm, initial encounter; Z91.81 History of falling; F41.1 Generalized anxiety disorder; H40.9 Unspecified glaucoma; I10 Essential (primary) hypertension; I25.10 Atherosclerotic heart disease of native coronary artery without angina pectoris; K22.70 Barrett's esophagus without dysplasia; M48.00 Spinal stenosis, site unspecified; F41.9 Anxiety disorder, unspecified; R29.6 Repeated falls; W18.39XA Other fall on same level, initial encounter; R31.29 Other microscopic hematuria; Z85.72 Personal history of non-Hodgkin lymphomas; Z85.828 Personal history of other malignant neoplasm of skin; Z68.22 Body mass index [BMI] 22.0-22.9, adult; Y93.89 Activity, other specified; Y92.89 Other specified places as the place of occurrence of the external cause; Y99.8 Other external cause status; Z88.8 Allergy status to other drugs, medicaments and biological substances
CPT/HCPCS: 36415; 70450; 71046; 72125; 73030; 74177; 80048; 80053; 80076; 81001; 82306; 82553; 82607; 83605; 83735; 84145; 84443; 84484; 85025; 87641; 93005; 96360; J8597; Q9967; 97110; 97116; 97530; 97535; 99285-25; J7030

== ENCOUNTER 2019-04-26 11:11 | Inpatient (IN) | payer MEDICARE ==
[~2019-04-26] VITALS: Ht 180.3 cm; Wt 73.0 kg
[~2019-04-26 11:11] MED LIST changes: +BRIM5DRO3 RIGHTEYE; +MECL12.52 PO; +METO-239 PO; +SERT25TA PO; +TORS20TA2 PO
[2019-04-26] MEDS ORDERED: NITROGLYCERIN SUBLINGUAL 0.4 MG BOTTLE OF 25. SL PRN (11:30)
[2019-04-26] MEDS ORDERED: CARV6.25 PO (11:31)
[2019-04-26] MEDS ORDERED: LIDO700A21 TP (11:35)
[2019-04-26] MEDS ORDERED: PANT40TA3 PO (11:35)
[2019-04-26] MEDS ORDERED: SERT25TA PO (11:35)
--- NOTE | 2019-04-26 11:42 | NUR ---
Swing Bed Admission Patient Handbook for [facility] given to patient. Nursing Problem: Patient was admitted o [facility] following a fall in [employer] parking lot. Patient is D/C and admitted to SNU for strength and conditioning r/t weakness. Cognitive/Behavioral: Patient is A& O x 4 and is calm and compliant with medications and assessment. Pain: Patient reports no pain at this time. Respiratory Status: Lungs clear to auscultation in all lobes. Skin: Bruising to L shoulder noted form fall. Skin intact and Bowel/Bladder Continence: Patient is continent bowel and bladder with stress incontinence noted at times. ADL Functional Status: Patient requirers stand by assistance for dressing, bathing, and toileting. Fall(s) prior to admission? Yes Admitted from? Patient admitted form [facility] and home prior to that.
[2019-04-26] MEDS: prednisoLONE ACETATE 1% OPHTH SUSPENSION 5ML BOTTLE. OD SCH ×3 (13:19→20:43)
[2019-04-26] MEDS: CARVEDILOL 6.25 MG TABLET PO SCH (18:10)
[2019-04-26 18:14] VITALS: BP 139/82
[2019-04-26] MEDS: ATORVASTATIN CALCIUM 20 MG TABLET PO SCH (20:39)
[2019-04-26] MEDS: SERTRALINE 25 MG TABLET. PO SCH (20:40)
[2019-04-26] MEDS: BRIMONIDINE 0.2% OPHTH SOLUTION 5ML BOTTLE. OD SCH (20:42)
[2019-04-26] MEDS: TAFLUPROST OP SCH (21:00)
[2019-04-26] MEDS ORDERED: SERTRALINE HCL 25 MG PO SCH (21:00)
[2019-04-27] VITALS (9 sets, daily range): BP systolic 73–173; BP diastolic 44–83
--- NOTE | 2019-04-27 05:10 | NUR ---
Swing Bed Note Patient Handbook for [facility] given to patient. Nursing Problem: Patient fell in [employer] parking lot 04/26. Pt admitted to SNU for strength and conditioning r/t weakness. Cognitive/Behavioral: Patient is A& O x 4 and is calm and compliant with medications and assessment. He did mention hearing "a man over the loud speaker" tonight. There were no announcements made through the night. I suggested it could be a dream but the pt insists he hadn't slept yet when he heard the voice. Pain: Patient reports no pain at this time. Respiratory Status: Lungs clear to auscultation in all lobes. Skin: Bruising to L shoulder noted from fall. Skin intact. Bowel/Bladder Continence: Patient is continent of bowel and bladder with stress incontinence noted at times. ADL Functional Status: Patient requires standby assistance for dressing, bathing, and toileting. Pt struggled to sleep tonight. He believes the medication he was given was not helpful this night unlike the previous night when he "fell asleep within 15 minutes."
[2019-04-27] MEDS: ASPIRIN 81 MG TAB.CHEW PO SCH (08:39)
[2019-04-27] MEDS: CARVEDILOL 6.25 MG TABLET PO SCH ×2 (08:40→17:13)
[2019-04-27] MEDS: MECLIZINE 12.5 MG TABLET. PO SCH (08:40)
[2019-04-27] MEDS: ISOSORBIDE MONONITRATE ER 30 MG TAB.ER.24H PO SCH (08:40)
[2019-04-27] MEDS: PANTOPRAZOLE 40 MG TABLET. PO SCH (08:41)
[2019-04-27] MEDS: METOPROLOL SUCC 24HR ER 25 MG TAB.ER.24H. PO SCH (08:41)
[2019-04-27] MEDS: TORSEMIDE 20 MG TABLET. PO SCH (08:41)
[2019-04-27] MEDS: LIDOCAINE (700MG/PATCH) PATCH. TD SCH ×2 (08:42→09:00)
[2019-04-27] MEDS: BRIMONIDINE 0.2% OPHTH SOLUTION 5ML BOTTLE. OD SCH ×2 (09:00→21:04)
[2019-04-27] MEDS: prednisoLONE ACETATE 1% OPHTH SUSPENSION 5ML BOTTLE. OD SCH ×4 (09:00→21:02)
--- NOTE | 2019-04-27 12:57 | PN ---
DATE: SUBJECTIVE: The patient transferred to skilled unit yesterday due to generalized weakness needing further medical care with his walking. The patient is walking fairly good, needs PT, OT to evaluate and treat him and make further evaluation on him as indicated. OBJECTIVE: VITAL SIGNS: The patient's blood pressure is still running up and down 170/80, respiratory rate 16, pulse 70, afebrile. GENERAL: Alert and oriented. LUNGS: Diminished throughout, poor movement of air. CARDIOVASCULAR: Regular sinus rhythm. ABDOMEN: Soft, nontender. The patient has generalized muscle atrophy. The patient using a walker and making some good progress, some stiffness in his walking. IMPRESSION: Ataxia, gait disturbance, generalized weakness. Continue with PT, OT here on skilled. JHON FRAUSTO MD DR: TWYLA/alejandra JOB#: [id number] / [id number]
[2019-04-27] MEDS: ATORVASTATIN CALCIUM 20 MG TABLET PO SCH (21:01)
[2019-04-27] MEDS: SERTRALINE 25 MG TABLET. PO SCH (21:01)
[2019-04-27] MEDS: TAFLUPROST OP SCH (21:04)
[2019-04-27] MEDS: TRIAZOLAM 0.25 MG PO SCH (21:35)
--- NOTE | 2019-04-28 05:20 | NUR ---
Swing Bed Note Patient Handbook for [facility] given to patient. Nursing Problem: Patient fell in [employer] parking lot 04/26. Pt admitted to SNU for strength and conditioning r/t weakness. Cognitive/Behavioral: Patient is A& O x 4 and is calm and compliant with medications and assessment. Pain: Patient reports no pain at this time. Respiratory Status: Lungs clear to auscultation in all lobes. Skin: Bruising to L shoulder noted from falland left hip. Skin intact. Bowel/Bladder Continence: Patient is continent of bowel and bladder with stress incontinence noted at times. ADL Functional Status: Patient requires standby assistance for dressing, bathing, and toileting. Pt with on and off periods of sleep tonight.
[2019-04-28 06:26] VITALS: BP 176/90
[2019-04-28] MEDS: CARVEDILOL 6.25 MG TABLET PO SCH ×2 (08:00→17:22)
[2019-04-28] MEDS: BRIMONIDINE 0.2% OPHTH SOLUTION 5ML BOTTLE. OD SCH ×2 (09:00→20:51)
[2019-04-28] MEDS: MECLIZINE 12.5 MG TABLET. PO SCH (09:06)
[2019-04-28] MEDS: PANTOPRAZOLE 40 MG TABLET. PO SCH (09:06)
[2019-04-28] MEDS: METOPROLOL SUCC 24HR ER 25 MG TAB.ER.24H. PO SCH (09:07)
[2019-04-28] MEDS: TORSEMIDE 20 MG TABLET. PO SCH (09:08)
[2019-04-28] MEDS: prednisoLONE ACETATE 1% OPHTH SUSPENSION 5ML BOTTLE. OD SCH ×4 (09:08→20:51)
[2019-04-28] MEDS: ISOSORBIDE MONONITRATE ER 30 MG TAB.ER.24H PO SCH (09:08)
[2019-04-28] MEDS: ASPIRIN 81 MG TAB.CHEW PO SCH (09:12)
[2019-04-28 09:13] VITALS: BP 117/75
[2019-04-28] MEDS: ATORVASTATIN CALCIUM 20 MG TABLET PO SCH (20:50)
[2019-04-28] MEDS: SERTRALINE 25 MG TABLET. PO SCH (20:50)
--- NOTE | 2019-04-28 20:57 | PN ---
DATE: SUBJECTIVE: An 83-year-old male in on the skilled unit for generalized weakness. He continues to receive PT, OT to help him with his mobilization. PHYSICAL EXAMINATION: VITAL SIGNS: His blood pressure also vacillates anywhere from 100 to almost 180/90 down to 140/80. GENERAL: Otherwise, he seems to be resting fairly comfortably, feels better. LUNGS: Clear. CARDIOVASCULAR: Stable. ABDOMEN: Soft, nontender. ASSESSMENT AND PLAN: The patient is still weak, still needs to continue PT, OT here on the skilled unit. JHON FRAUSTO MD DR: TWYLA/alejandra JOB#: [id number] / [id number]
[2019-04-28] MEDS: TAFLUPROST OP SCH (21:30)
[2019-04-28] MEDS: TRIAZOLAM 0.25 MG PO SCH (21:31)
[2019-04-29] VITALS (7 sets, daily range): BP systolic 83–176; BP diastolic 47–96
--- NOTE | 2019-04-29 06:09 | NUR ---
Swing Bed Nursing Note Pt has received Handbook for Retirement. Nursing Problem: Patient fell in [employer] parking lot 04/26. Pt admitted to SNU for strength and conditioning r/t weakness. Cognitive/Behavioral: Patient is A&O x 4 and is calm and compliant with medications and assessment. Occasional forgetfulness/confusion reported. Pt reports being very bored and concerned that he is not receiving all of the PT/OT sessions he was told he would receive. Pain: Patient reports no pain at this time. Respiratory Status: Lungs clear to auscultation anteriorly in all lobes, diminished in the bases. Skin: Bruising to L shoulder noted from fall. Skin intact. Bowel/Bladder Continence: Patient is continent of bowel and bladder with stress incontinence noted at times. ADL Functional Status: Patient requires standby assistance for dressing, bathing, and toileting. Pt slept throughout night, waking only once to use the BR as reported by GENARO Redman. Zafar Addison RN
--- NOTE | 2019-04-29 07:00 | NUR ---
Swing Bed Nursing Note Pt has received Handbook for Residential. Nursing Problem: Patient fell in [employer] parking lot 04/26. Pt admitted to SNU for strength and conditioning r/t weakness. Cognitive/Behavioral: Patient is A&O x 4 and is calm and compliant with medications and assessment. Occasional forgetfulness/confusion reported. Pt reports being very bored and concerned that he is not receiving all of the PT/OT sessions he was told he would receive. Pain: Patient reports no pain at this time. Respiratory Status: Lungs clear to auscultation anteriorly in all lobes, diminished in the bases. Skin: Bruising to L shoulder noted from fall. Skin intact. Bowel/Bladder Continence: Patient is continent of bowel and bladder with stress incontinence noted at times. ADL Functional Status: Patient requires standby assistance for dressing, bathing, and toileting.
[2019-04-29] MEDS: PANTOPRAZOLE 40 MG TABLET. PO SCH (07:45)
[2019-04-29] MEDS: MECLIZINE 12.5 MG TABLET. PO SCH (07:45)
[2019-04-29] MEDS: ISOSORBIDE MONONITRATE ER 30 MG TAB.ER.24H PO SCH (07:46)
[2019-04-29] MEDS: METOPROLOL SUCC 24HR ER 25 MG TAB.ER.24H. PO SCH (07:47)
[2019-04-29] MEDS: TORSEMIDE 20 MG TABLET. PO SCH (07:47)
[2019-04-29] MEDS: ASPIRIN 81 MG TAB.CHEW PO SCH (07:48)
[2019-04-29] MEDS: CARVEDILOL 6.25 MG TABLET PO SCH ×2 (07:48→17:00)
[2019-04-29] MEDS: BRIMONIDINE 0.2% OPHTH SOLUTION 5ML BOTTLE. OD SCH ×2 (07:49→20:31)
[2019-04-29] MEDS: prednisoLONE ACETATE 1% OPHTH SUSPENSION 5ML BOTTLE. OD SCH ×4 (07:49→20:31)
[2019-04-29] MEDS: TAFLUPROST OP SCH (20:32)
[2019-04-29] MEDS: SERTRALINE 25 MG TABLET. PO SCH (20:32)
[2019-04-29] MEDS: ATORVASTATIN CALCIUM 20 MG TABLET PO SCH (20:32)
[2019-04-29] MEDS: TRIAZOLAM 0.25 MG PO SCH (20:32)
--- NOTE | 2019-04-29 23:31 | NUR ---
Swing Bed Nursing Note Pt has received Handbook for [facility]. Nursing Problem: Patient fell in [employer] parking lot 04/26. Pt admitted to SNU for strength and conditioning r/t weakness. Cognitive/Behavioral: Patient is A/Ox4, forgetful at times. Pleasant and cooperative with meds and assessment. Reports he has a good work out with PT today. Pain: Patient reports no pain at this time. Respiratory Status: Lungs CTA, diminished in the bases. Pt sats upper 90's on RA. Denies cough or SOA. Skin: Bruising improving to Left shoulder and hip from prior fall. Skin fragile/friable but intact. Bowel/Bladder Continence: Patient is continent of bowel and bladder with stress incontinence noted at times. Reports LBM today, 04/29. ADL Functional Status: Patient requires standby assistance for dressing, bathing, and toileting. Ambulated with supervision up and down skilled hallway this evening, utilizing walker properly. Took HS pills whole, tolerated well.
--- NOTE | 2019-04-30 00:23 | NUR ---
Swing Bed Nursing Note Pt has received Handbook for Detention. Nursing Problem: Patient fell in [employer] parking lot 04/26. Pt admitted to SNU for strength and conditioning r/t weakness. Cognitive/Behavioral: Patient is sitting up in chair, watching TV at time of assessment. Pleasant and talkative when approached. Reports he is ready to DC home whenever "doc gives me the green light." Pain: Patient reports no pain at this time. Respiratory Status: Lungs CTA, diminished in the bases. Pt sats upper 90's on RA. Denies cough or SOA. Skin: Bruising improving to Left shoulder and hip from prior fall. Skin fragile/friable but intact. Bowel/Bladder Continence: Patient is continent of bowel and bladder with stress incontinence noted at times. Reports LBM today, 04/30. ADL Functional Status: Patient requires standby assistance for dressing, bathing, and toileting. Ambulated with supervision up and down skilled hallway this evening, utilizing walker properly. Ate HS snack independently. Took HS pills whole, tolerated well.
[2019-04-30] MEDS: MECLIZINE 12.5 MG TABLET. PO SCH (08:13)
[2019-04-30] MEDS: ISOSORBIDE MONONITRATE ER 30 MG TAB.ER.24H PO SCH (08:14)
[2019-04-30] MEDS: METOPROLOL SUCC 24HR ER 25 MG TAB.ER.24H. PO SCH (08:15)
[2019-04-30] MEDS: TORSEMIDE 20 MG TABLET. PO SCH (08:15)
[2019-04-30] MEDS: ASPIRIN 81 MG TAB.CHEW PO SCH (08:15)
[2019-04-30] MEDS: PANTOPRAZOLE 40 MG TABLET. PO SCH (08:15)
[2019-04-30] MEDS: CARVEDILOL 6.25 MG TABLET PO SCH ×2 (08:16→17:11)
[2019-04-30] MEDS: prednisoLONE ACETATE 1% OPHTH SUSPENSION 5ML BOTTLE. OD SCH ×4 (08:17→19:49)
[2019-04-30] MEDS: BRIMONIDINE 0.2% OPHTH SOLUTION 5ML BOTTLE. OD SCH ×2 (08:18→19:49)
[2019-04-30 12:51] VITALS: BP 107/70
--- NOTE | 2019-04-30 15:31 | NUR ---
SWING BED DOCUMENTATION Pt has received Handbook for [facility]. Nursing Problem: Patient fell in [employer] parking lot 04/26. Pt admitted to SNU for strength and conditioning r/t weakness from [address] [place]. Cognitive/Behavioral: Patient is A&O x 4 and is calm and compliant with medications and assessment. Occasional forgetfulness/confusion reported. pt visits daily and was with him at breakfast. Pain: Patient reports no pain at this time. Respiratory Status: Lungs clear to auscultation anteriorly in all lobes, diminished in the bases. Skin: Bruising to L shoulder noted from fall. Skin intact. healing scraps from fall. Bowel/Bladder Continence: Patient is continent of bowel and bladder with stress incontinence noted at times. ADL Functional Status: Patient requires standby assistance for dressing, bathing, and toileting. no complications. trang gary.
[2019-04-30] MEDS: TRIAZOLAM 0.25 MG PO SCH (19:47)
[2019-04-30] MEDS: ATORVASTATIN CALCIUM 20 MG TABLET PO SCH (19:47)
[2019-04-30] MEDS: SERTRALINE 25 MG TABLET. PO SCH (19:47)
[2019-04-30] MEDS: TAFLUPROST OP SCH (19:49)
--- NOTE | 2019-05-01 00:12 | PN ---
DATE: SUBJECTIVE: The patient asked me to come and see him on skilled unit. He is resting fairly comfortably. He is making fairly good progress, still needing a walker, still very weak. He still requires a great deal of assistance. OBJECTIVE: VITAL SIGNS: Otherwise, blood pressure is 120/70, respiratory rate 18, pulse 70 and afebrile. GENERAL: The patient is alert and oriented. LUNGS: Diminished, but clear. CARDIOVASCULAR: Regular sinus rhythm. ABDOMEN: Soft, nontender. IMPRESSION: Generalized weakness, multiple falls. PLAN: Continue to monitor the patient accordingly and make further evaluation on him as indicated. JHON FRAUSTO MD DR: TWYLA/alejandra JOB#: [id number] / [id number]
[2019-05-01 05:36] VITALS: BP 152/79
[2019-05-01] MEDS: PANTOPRAZOLE 40 MG TABLET. PO SCH (07:50)
[2019-05-01] MEDS: TORSEMIDE 20 MG TABLET. PO SCH (07:51)
[2019-05-01] MEDS: METOPROLOL SUCC 24HR ER 25 MG TAB.ER.24H. PO SCH (07:52)
[2019-05-01] MEDS: ISOSORBIDE MONONITRATE ER 30 MG TAB.ER.24H PO SCH (07:53)
[2019-05-01] MEDS: MECLIZINE 12.5 MG TABLET. PO SCH (07:53)
[2019-05-01] MEDS: CARVEDILOL 6.25 MG TABLET PO SCH (07:54)
[2019-05-01] MEDS: prednisoLONE ACETATE 1% OPHTH SUSPENSION 5ML BOTTLE. OD SCH ×4 (07:54→20:47)
[2019-05-01] MEDS: ASPIRIN 81 MG TAB.CHEW PO SCH (07:54)
[2019-05-01] MEDS: BRIMONIDINE 0.2% OPHTH SOLUTION 5ML BOTTLE. OD SCH ×2 (07:54→20:48)
[2019-05-01] MEDS: CARVEDILOL 12.5 MG TABLET PO SCH (17:00)
--- NOTE | 2019-05-01 18:23 | NUR ---
SWING BED DOCUMENTATION Nursing Problem: Weakness Cognitive/Behavioral: Patient is A&O x 4 and is calm and compliant with medications and assessment. Occasional forgetfulness/confusion reported. pt visits daily. Speech is clear, able to make wants and needs known and able to verbalize understanding of others. No negative moods or behaviors. Pain: Patient reports no pain at this time. Respiratory Status: Lungs are CTA, respirations are even and unlabored, no cough or SOA present. Skin: Bruising to L shoulder noted from fall. Skin intact. healing scrapes from fall prior to hospitalization. Bowel/Bladder Continence: Patient is continent of bowel and bladder with stress incontinence noted at times. Abdomen is soft and non tender with active bowel sounds in all 4 quadrants. ADL Functional Status: Patient requires standby assistance for dressing, bathing, and toileting. Patient is resting in room with call light and fresh fluids with in reach.
[2019-05-01 18:28] VITALS: BP 160/83
[2019-05-01] MEDS: SERTRALINE 25 MG TABLET. PO SCH (20:48)
[2019-05-01] MEDS: ATORVASTATIN CALCIUM 20 MG TABLET PO SCH (20:48)
[2019-05-01] MEDS: TRIAZOLAM 0.25 MG PO SCH (20:49)
--- NOTE | 2019-05-01 21:07 | NUR ---
Swing Bed Nursing Note Pt has received Handbook for Jail. Nursing Problem: Patient fell in [employer] parking lot 04/26. Pt admitted to SNU for strength and conditioning r/t weakness. Cognitive/Behavioral: Patient is A/Ox4, forgetful at times. Pleasant and cooperative with meds and assessment. Reports he has a good work out with PT today, just getting bored. Pain: Patient reports no pain at this time. Respiratory Status: Lungs CTA, diminished in the bases. Denies cough or SOA. Skin: Bruising improving to Left shoulder and hip from prior fall. Skin fragile/friable but intact. Bowel/Bladder Continence: Patient is continent of bowel and bladder with stress incontinence noted at times. Reports LBM today, 05/01. ADL Functional Status: Patient requires standby assistance for dressing, bathing, and toileting. Ambulated with supervision up and down skilled hallway this evening, utilizing walker properly. Took HS pills whole, tolerated well.
--- NOTE | 2019-05-01 23:39 | PN ---
DATE: SUBJECTIVE: The patient was an 83-year-old male in with difficulty with walking, multiple falls, ____ imbalance. He is having a good progress with skilled unit. Continue with physical therapy. OBJECTIVE: VITAL SIGNS: Blood pressure 150/80, respiratory rate 16, pulse 60, and afebrile. GENERAL: The patient is alert and oriented x 3. Speech is fluent, spontaneous, appropriate. Cranial nerves 2-12 are grossly intact. The patient otherwise seems to be making good progress overall. He is walking a little bit stronger and hopefully ready for discharge here soon. IMPRESSION: Ataxia, gait imbalance, problem with balance system as well as hypertension, essential. JHON FRAUSTO MD DR: TWYLA/alejandra JOB#: [id number] / [id number]
[2019-05-02 05:14] VITALS: BP 161/87
--- NOTE | 2019-05-02 07:00 | NUR ---
Swing Bed Nursing Note Pt has received Handbook for Custodial. Nursing Problem: Patient fell in [employer] parking lot 04/26. Pt admitted to SNU for strength and conditioning r/t weakness. Cognitive/Behavioral: Patient is A/Ox4, forgetful at times. Pleasant and cooperative with meds and assessment. Pain: Patient reports no pain at this time. Respiratory Status: Lungs CTA, diminished in the bases. Denies cough or SOA. Skin: Bruising improving to Left shoulder and hip from prior fall. Skin fragile/friable but intact. Bowel/Bladder Continence: Patient is continent of bowel and bladder with stress incontinence noted at times. Reports LBM today, 05/01. ADL Functional Status: Patient requires standby assistance for dressing, bathing, and toileting. Ambulates with supervision up and down skilled hallway, utilizing walker properly. Takes pills whole, tolerates well.
[2019-05-02 07:25] VITALS: BP 162/81
[2019-05-02] MEDS: ASPIRIN 81 MG TAB.CHEW PO SCH (08:09)
[2019-05-02] MEDS: MECLIZINE 12.5 MG TABLET. PO SCH (08:10)
[2019-05-02] MEDS: METOPROLOL SUCC 24HR ER 25 MG TAB.ER.24H. PO SCH (08:10)
[2019-05-02] MEDS: TORSEMIDE 20 MG TABLET. PO SCH (08:10)
[2019-05-02] MEDS: ISOSORBIDE MONONITRATE ER 30 MG TAB.ER.24H PO SCH (08:11)
[2019-05-02] MEDS: CARVEDILOL 12.5 MG TABLET PO SCH ×2 (08:11→17:12)
[2019-05-02] MEDS: PANTOPRAZOLE 40 MG TABLET. PO SCH (08:12)
[2019-05-02] MEDS: BRIMONIDINE 0.2% OPHTH SOLUTION 5ML BOTTLE. OD SCH ×2 (08:19→20:24)
[2019-05-02] MEDS: prednisoLONE ACETATE 1% OPHTH SUSPENSION 5ML BOTTLE. OD SCH ×4 (08:19→20:24)
--- NOTE | 2019-05-02 08:46 | NUR ---
Patient was up to the bathroom with walker, standby assist only. Patient dressed himself for the day with no issues.
[2019-05-02 17:11] VITALS: BP 140/75
[2019-05-02 20:00] VITALS: BP 136/72
[2019-05-02] MEDS: SERTRALINE 25 MG TABLET. PO SCH (20:24)
[2019-05-02] MEDS: ATORVASTATIN CALCIUM 20 MG TABLET PO SCH (20:25)
[2019-05-02] MEDS: TRIAZOLAM 0.25 MG PO SCH (20:55)
--- NOTE | 2019-05-02 22:18 | NUR ---
SWING BED DOCUMENTATION Nursing Problem: Weakness Cognitive/Behavioral: Patient is A&O x 4 and is calm and compliant with medications and assessment. Occasional forgetfulness/confusion reported. pt visits daily. Speech is clear, able to make wants and needs known and able to verbalize understanding of others. No negative moods or behaviors. Pain: Patient reports no pain at this time. Respiratory Status: Lungs are CTA, respirations are even and unlabored, no cough or SOA present. Skin: Bruising to L shoulder noted from fall. Skin intact. healing scrapes from fall prior to hospitalization. Bowel/Bladder Continence: Patient is continent of bowel and bladder with stress incontinence noted at times. Abdomen is soft and non tender with active bowel sounds in all 4 quadrants. ADL Functional Status: Patient requires standby assistance for dressing, bathing, and toileting. Patient is sleeping in room with call light with in reach.
--- NOTE | 2019-05-02 22:20 | NUR ---
Pt was up to bathroom with walker standy by assist only. Pt was able to use restroom, brush his teeth, change to pj's on his own with no issues.
[2019-05-03 08:07] VITALS: BP 137/84
[2019-05-03] MEDS: TORSEMIDE 20 MG TABLET. PO SCH (08:11)
[2019-05-03] MEDS: ASPIRIN 81 MG TAB.CHEW PO SCH (08:12)
[2019-05-03] MEDS: METOPROLOL SUCC 24HR ER 25 MG TAB.ER.24H. PO SCH (08:12)
[2019-05-03] MEDS: ISOSORBIDE MONONITRATE ER 30 MG TAB.ER.24H PO SCH (08:12)
[2019-05-03] MEDS: MECLIZINE 12.5 MG TABLET. PO SCH (08:12)
[2019-05-03] MEDS: PANTOPRAZOLE 40 MG TABLET. PO SCH (08:13)
[2019-05-03] MEDS: CARVEDILOL 12.5 MG TABLET PO SCH ×2 (08:16→16:24)
[2019-05-03] MEDS: prednisoLONE ACETATE 1% OPHTH SUSPENSION 5ML BOTTLE. OD SCH ×4 (08:16→21:36)
[2019-05-03] MEDS: BRIMONIDINE 0.2% OPHTH SOLUTION 5ML BOTTLE. OD SCH ×2 (08:16→21:37)
[2019-05-03 16:42] VITALS: BP 130/73
[2019-05-03 18:12] VITALS: BP 128/82
[2019-05-03] MEDS: ATORVASTATIN CALCIUM 20 MG TABLET PO SCH (21:36)
[2019-05-03] MEDS: SERTRALINE 25 MG TABLET. PO SCH (21:36)
[2019-05-03] MEDS: TRIAZOLAM 0.25 MG PO SCH (21:37)
--- NOTE | 2019-05-04 06:16 | NUR ---
Swing Bed Note: Nursing Problem: Weakness Cognitive/Behavioral: Patient is A&O x 4 and is calm and compliant with medications and assessment. Occasional forgetfulness/confusion reported. Pt's visits daily. Speech is clear, able to make wants and needs known and able to verbalize understanding of others. No negative moods or behaviors. Pain: Patient reports no pain at this time. Respiratory Status: Lungs are CTA, respirations are even and unlabored, no cough or SOA present. Skin: Bruising to L shoulder noted from fall. Skin intact. Healing scrapes from fall prior to hospitalization. Bowel/Bladder Continence: Patient is continent of bowel and bladder with stress incontinence noted at times. Abdomen is soft and non tender with active bowel sounds in all four quadrants. LBM 05/02 ADL Functional Status: Patient requires standby assistance for dressing, bathing, and toileting.
[2019-05-04 06:33] VITALS: BP 159/80
[2019-05-04 08:26] VITALS: BP 163/87
[2019-05-04] MEDS: MECLIZINE 12.5 MG TABLET. PO SCH (08:45)
[2019-05-04] MEDS: ASPIRIN 81 MG TAB.CHEW PO SCH (08:45)
[2019-05-04] MEDS: PANTOPRAZOLE 40 MG TABLET. PO SCH (08:45)
[2019-05-04] MEDS: ISOSORBIDE MONONITRATE ER 30 MG TAB.ER.24H PO SCH (08:45)
[2019-05-04] MEDS: METOPROLOL SUCC 24HR ER 25 MG TAB.ER.24H. PO SCH (08:46)
[2019-05-04] MEDS: CARVEDILOL 12.5 MG TABLET PO SCH ×2 (08:46→16:16)
[2019-05-04] MEDS: TORSEMIDE 20 MG TABLET. PO SCH (08:46)
[2019-05-04] MEDS: BRIMONIDINE 0.2% OPHTH SOLUTION 5ML BOTTLE. OD SCH ×2 (08:47→21:00)
[2019-05-04] MEDS: prednisoLONE ACETATE 1% OPHTH SUSPENSION 5ML BOTTLE. OD SCH ×4 (08:47→21:30)
[2019-05-04 16:34] VITALS: BP 145/79
[2019-05-04] MEDS: ATORVASTATIN CALCIUM 20 MG TABLET PO SCH (21:29)
[2019-05-04] MEDS: SERTRALINE 25 MG TABLET. PO SCH (21:29)
[2019-05-04] MEDS: TRIAZOLAM 0.25 MG PO SCH (21:30)
[2019-05-05 06:32] VITALS: BP 128/71
[2019-05-05] MEDS: MECLIZINE 12.5 MG TABLET. PO SCH (08:17)
[2019-05-05] MEDS: CARVEDILOL 12.5 MG TABLET PO SCH (08:17)
[2019-05-05] MEDS: PANTOPRAZOLE 40 MG TABLET. PO SCH (08:17)
[2019-05-05] MEDS: ASPIRIN 81 MG TAB.CHEW PO SCH (08:18)
[2019-05-05] MEDS: prednisoLONE ACETATE 1% OPHTH SUSPENSION 5ML BOTTLE. OD SCH (08:18)
[2019-05-05] MEDS: TORSEMIDE 20 MG TABLET. PO SCH (08:18)
[2019-05-05 08:21] VITALS: BP 128/71
[2019-05-05] MEDS: BRIMONIDINE 0.2% OPHTH SOLUTION 5ML BOTTLE. OD SCH (08:22)
[2019-05-05] MEDS ORDERED: CARV12.547 PO (08:22)
[2019-05-05] MEDS ORDERED: METO-239 PO (08:22)
[2019-05-05] MEDS ORDERED: ISOS30TA4 PO (08:22)
[2019-05-05] MEDS ORDERED: ISOSORBIDE MONONITRATE ER 30 MG TAB.ER.24H PO SCH (09:00)
[2019-05-05] MEDS ORDERED: METOPROLOL SUCC 24HR ER 25 MG TAB.ER.24H. PO SCH (09:00)
--- NOTE | 2019-05-05 09:12 | DS ---
DATE OF DISCHARGE: 05/05/2019 HOSPITAL COURSE: The patient is being discharged from the skilled unit. He has been having problems walking with generalized weakness and falling. The patient was brought in to the hospital originally, he was worked up and then transferred to skilled to continue his PT, OT. He said he has made fairly good progress. We will have home health evaluate the house for further evaluation. Blood pressure 128/70, respiration 18, pulse 60, afebrile. The patient is alert and oriented x3. Speech fluent, spontaneous, appropriate. Cranial nerves 2-12 are grossly intact. The patient will be discharged home. Follow up as an outpatient and continue to monitor him accordingly. IMPRESSION: Ataxia, gait imbalance, problem with balance system as well as hypertension, essential. 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 We will continue to monitor him accordingly and make further evaluation on him as indicated per those responses. JHON FRAUSTO MD DR: TWYLA/alejandra JOB#: [id number] / [id number]
--- NOTE | 2019-05-05 12:00 | NUR ---
SWING BED DOCUMENTATION Nursing Problem: Weakness Cognitive/Behavioral: Patient is A&O x 4 and is calm and compliant with medications and assessment. Calm and compliant. Pain: Patient reports no pain at this time. Respiratory Status: Lungs are CTA, respirations are even and unlabored, no cough or SOA present. Skin: Bruising to L shoulder noted from fall. Skin intact. healing scrapes from fall prior to hospitalization. Bowel/Bladder Continence: Patient is continent of bowel and bladder with stress incontinence noted at times. Abdomen is soft and non tender with active bowel sounds in all 4 quadrants. ADL Functional Status: Patient requires standby assistance for dressing, bathing, and toileting. pt planned on discharging today. trang gary
--- NOTE | 2019-05-05 13:44 | NUR ---
NURSING NOTE DISCHARGE PT DISCHARGED HOME WITH HOME HEALTH AT 1325 ACCOMPANIED BY . WRITTEN AND VERBAL DISCHARGE INSTRUCTIONS GIVEN TO PT AND . NO SCRIPTS GIVEN. NO COMPLICATIONS. ESTEBAN BENJAMIN.
== END 2019-05-05 13:30 | disposition home health service (06) | DRG 948 ==
LOC: LND 11:11
PROVIDERS: ADMIT Family Medicine; ATTEND Family Medicine
DX: R53.1 Weakness (principal); R27.0 Ataxia, unspecified; I10 Essential (primary) hypertension; R29.6 Repeated falls; Z85.72 Personal history of non-Hodgkin lymphomas
CPT/HCPCS: J8597; 97110; 97112; 97116; 97530; 97535

== ENCOUNTER 2019-10-20 08:21 | Inpatient (IN) | payer MEDICARE ==
[~2019-10-20] VITALS: Ht 180.3 cm; Wt 71.3 kg
[2019-10-20] MEDS: IV 1/2 NORMAL SALINE 1,000 ML IV SCH ×2 (02:40→09:48)
[~2019-10-20 08:21] MED LIST changes: +CARV12.547 PO; +CARV6.25 PO; -CLON0.5T11 PO; +CLON0.5T4 PO; +LIDO700A21 TP; +OMEP40CA45 PO; -OMEP40CA5 PO; +PANT40TA3 PO
[2019-10-20 09:08] VITALS: BP 166/84
[2019-10-20 09:09] LABS: BASO # 0.1 x10^3/uL (0.0-0.2); BASO % 1 % (0-3); EOS # 0.1 x10^3/uL (0.0-0.7); EOS % 1 % (0-3); HEMATOCRIT 46.1 % (39.0-53.0); HEMOGLOBIN 15.1 g/dL (13.0-17.5); LYMPH # 0.9 x10^3/uL (1.0-4.8); LYMPH % 11 % (24-48); MEAN CORPUSCULAR HEMOGLOBIN 31 pg (25-35); MEAN CORPUSCULAR HGB CONC 33 g/dL (31-37); MEAN CORPUSCULAR VOLUME 93 fL (79-100); MONO # 1.5 x10^3/uL (0.0-1.1); MONO % 19 % (0-9); NEUT # 5.3 x10^3uL (1.8-7.7); NEUT % 67 % (31-73); PLATELET COUNT 165 x10^3/uL (140-400); RED BLOOD COUNT 4.94 x10^6/uL (4.30-5.70); RED CELL DISTRIBUTION WIDTH 14.9 % (11.5-14.5); WHITE BLOOD COUNT 7.8 x10^3/uL (4.0-11.0)
[2019-10-20 09:10] VITALS: BP_SYST 124; BP_SYST 128; BP_DIAS 77; BP_DIAS 78
[2019-10-20] MEDS: PANTOPRAZOLE 40 MG TABLET. PO SCH (09:15)
[2019-10-20] MEDS: MECLIZINE 12.5 MG TABLET. PO SCH (09:15)
[2019-10-20] MEDS: BRIMONIDINE 0.2% OPHTH SOLUTION 5ML BOTTLE. OD SCH ×2 (09:15→20:42)
[2019-10-20] MEDS: ASPIRIN 81 MG TAB.CHEW PO SCH (09:15)
[2019-10-20] MEDS ORDERED: NITROGLYCERIN SUBLINGUAL 0.4 MG BOTTLE OF 25. SL PRN (09:15)
[2019-10-20 09:25] LABS: ALBUMIN 3.4 g/dL (3.4-5.0); ALBUMIN/GLOBULIN RATIO 1.2 (1.0-1.7); CALCIUM 8.4 mg/dL (8.5-10.1); CREATININE 1.4 mg/dL (0.7-1.3); GFR 48.1; POTASSIUM 3.7 mmol/L (3.5-5.1); TOTAL BILIRUBIN 0.6 mg/dL (0.2-1.0); TOTAL PROTEIN 6.3 g/dL (6.4-8.2)
[2019-10-20] MEDS ORDERED: BRIN10DR RIGHTEYE (09:26)
[2019-10-20] MEDS ORDERED: TRIA0.2567 PO (09:26)
[2019-10-20] MEDS ORDERED: TAFL1DRO EACHEYE (09:26)
[2019-10-20] MEDS: DORZOLAMIDE 2% OPHTH SOLUTION 10ML BOTTLE. OD SCH ×2 (10:00→20:42)
[2019-10-20 10:22] LABS: SEDIMENTATION RATE 2 (0-15)
[2019-10-20] MEDS ORDERED: ENOXAPARIN ** NOTE DOSE ** SYRINGE SQ SCH (10:30)
[2019-10-20] MEDS ORDERED: ANTI-COAG MONITOR BY PHARMACY. MC PRN (10:30)
[2019-10-20] MEDS ORDERED: IOHEXOL 350 MG/ML 100 ML VIAL. IV ONE (10:45)
--- NOTE | 2019-10-20 11:17 | RAD ---
CT HEAD WITHOUT CONTRAST 10/20/2019 9:39 AM Indication: Syncope. Frequent falling. Increased forgetfulness and difficulty with balance. Comparison: CT head without contrast April 23, 2019 Procedure: Multidetector CT imaging of the head was performed without the administration of contrast. Findings: Stable mild senescent atrophic changes are noted. There is no evidence of acute intracranial hemorrhage. There is no evidence of acute territorial infarction. Please note that CT is limited for evaluation of acute ischemia. No mass effect or midline shift is identified . The ventricles and basilar cisterns have an grossly stable appearance. No abnormal extra-axial fluid collections are seen. No acute osseous changes are identified. Impression: No evidence of acute intracranial abnormality or acute change from prior exam CT DOSING PQRS STATEMENT: One or more of the following individualized dose reduction techniques were utilized for this examination: 1. Automated exposure control 2. Adjustment of the mA and/or kV according to patient size 3. Use of iterative reconstruction technique Electronically signed by: Humza Arthur MD (10/20/2019 11:14 AM) [id number]
--- NOTE | 2019-10-20 11:42 | RAD ---
EXAM: Chest, 2 views; left hand, 2 views; pelvis and right hip, 3 views; right femur, 2 views. HISTORY: Fall. Syncope. COMPARISON: 04/23/2019 FINDINGS: Chest: 2 views of chest are obtained. There is stable elevation of the left hemidiaphragm. There is a port catheter with the tip in the superior vena cava. There is a stable prominent cardiac silhouette. There is no pleural effusion or pneumothorax. There is hyperinflation likely due to inspiratory effort or emphysema. Right hip and pelvis: A frontal view of the pelvis and 2 views of the right hip are obtained. There is no fracture, dislocation or subluxation. There is mild bilateral hip osteoarthritis. There is lumbar scoliosis and multilevel degenerative change involving the lower lumbar spine. There are multiple pelvic fluid levels. There are few small benign bone islands. Right femur: 2 views of the right femur are obtained. There is no fracture, dislocation or subluxation. There is mild osteoarthritis involving the right knee. No significant joint effusion is seen. There are vascular calcifications. Left hand: 2 views of the left hand are obtained. There is severe first carpometacarpal joint space narrowing with subchondral sclerosis and osteophytosis. There are multiple small fragmented osteophytes surrounding the joint space. No acute displaced fracture is seen. IMPRESSION: 1. No acute pulmonary or osseous finding. 2. 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 3. Severe left first carpal metacarpal osteoarthritis. Electronically signed by: Ashley Nieves MD (10/20/2019 11:39 AM) [id number]
--- NOTE | 2019-10-20 12:07 | RAD ---
CTA OF THE CHEST WITH AND WITHOUT CONTRAST Clinical indications: Elevated d-dimer. Syncope. Technique: Noncontrast axial localizer was performed. After IV infusion of [ ] cc of Isovue-370, helical CT scanning of the chest was performed using the CT pulmonary embolism protocol. A coronal MIP reconstruction was generated. PQRS compliance Statement One or more of the following individualized dose reduction techniques were utilized for this study: 1. Automated exposure control 2. Adjustment of the mA and/or kV according to patient size 3. Use of iterative reconstruction technique Comparison: Chest CTA dated August 03, 2017. Findings: No focal aneurysmal dilatation or dissection of the thoracic aorta is seen. The heart size is normal and no pericardial effusion is seen. Calcified atheromatous disease of the coronary arteries is seen. No enlarged thoracic lymphadenopathy is evident. No pulmonary embolism is evident. There is chronic severe elevation of the left hemidiaphragm which is unchanged. There is associated compressive atelectasis of the left lung base. No new lung infiltrate is evident. Bilateral bronchiectasis is again seen. No pleural effusion or pneumothorax is evident. No adrenal mass is evident. No lytic process is seen. IMPRESSION: No pulmonary embolism. No acute lung infiltrate. Calcified atheromatous disease of the coronary arteries. Electronically signed by: Tommy Bradshaw MD (10/20/2019 12:04 PM) [facility]
[2019-10-20] MEDS: MIDODRINE 2.5 MG TABLET PO SCH ×2 (13:27→17:05)
[2019-10-20] MEDS: prednisoLONE ACETATE 1% OPHTH SUSPENSION 5ML BOTTLE. OD SCH ×3 (13:27→20:41)
[2019-10-20 14:23] VITALS: BP 148/85
[2019-10-20 14:29] LABS: FECAL OB PT NEGATIVE (NEG)
--- NOTE | 2019-10-20 14:34 | CARD ---
MR#: [id number] Date of Study: 10/20/2019 Ordering Physician: JHON FRAUSTO, Referring Physician: JHON FRAUSTO Tech: Miranda Daniel BHAVNA APPROVED REPORT EXAM: Two-dimensional and M-mode echocardiogram with Doppler and color Doppler. Other Information Quality : Fair Technically limited study due to body habitus. INDICATION Syncope 2D DIMENSIONS Left Atrium(2D)2.6 (1.6-4.0cm)IVSd0.9 (0.7-1.1cm) Aortic Root(2D)1.9 (2.0-3.7cm)LVDd2.6 (3.9-5.9cm) PWd1.0 (0.7-1.1cm)LVDs1.8 (2.5-4.0cm) FS (%) 31.7 %SV15.2 ml LVEF(%)60.0 (>50%) Aortic Valve AoV Peak Joao.91.9cm/sAoV VTI18.2cm AO Peak GR.3.4mmHgAO Mean GR.2mmHg MINA (VTI)2.16cm2 Mitral Valve MV E Csyhpctl62.3cm/sMV DECEL [id number] MV A Ztykmpls64.5cm/sE/A Ratio0.6 LEFT VENTRICLE The left ventricle is normal size. There is normal left ventricular wall thickness. The left ventricu lar systolic function is normal and the ejection fraction is within normal range. The Ejection Fracti on is 55-60%. Septal motion suggestive of conduction defect. Otherwise, grossly normal. Transmitral D oppler flow pattern is Grade I-abnormal relaxation pattern. RIGHT VENTRICLE The right ventricle is normal size. The right ventricular systolic function is normal. ATRIA The left atrium is moderately dilated. The right atrium size is normal. The interatrial septum is int act with no evidence for an atrial septal defect or patent foramen ovale as noted on 2-D or Doppler i maging. AORTIC VALVE The aortic valve is not well visualized but appears to be functioning normally by Doppler interrogati on. Doppler and Color Flow revealed no significant aortic regurgitation. There is no significant aort ic valvular stenosis. MITRAL VALVE The mitral valve is calcified but opens well. There is no evidence of mitral valve prolapse. There is no mitral valve stenosis. Doppler and Color Flow revealed no mitral valve regurgitation noted. TRICUSPID VALVE The tricuspid valve is normal in structure and function. Doppler and Color Flow revealed no tricuspid valve regurgitation noted. There is no tricuspid valve stenosis. PULMONIC VALVE The pulmonic valve is not well visualized. GREAT VESSELS The aortic root is normal in size. The ascending aorta is not well seen. The IVC was not visualized. PERICARDIAL EFFUSION There is no evidence of significant pericardial effusion. Critical Notification Critical Value: No <Conclusion> The left ventricular systolic function is normal and the ejection fraction is within normal range. Th e Ejection Fraction is 55-60%. Septal motion suggestive of conduction defect. Otherwise, grossly normal. Technically difficult study Signed by : Parmjit Cross, Electronically Approved : 10/20/2019 14:34:32
--- NOTE | 2019-10-20 16:05 | PDOC2 ---
CONSULT Date of Admission DATE: 10/20/19 TIME: 16:05 Reason for Consult: Gen weakness and falls Referring Physician: Dr. Fleming Chief Complaint Gen weakness and falls History of Present Illness 84 y/o male presented with generalized weakness and recurrent falls mostly when getting up from sitting or lying down position, He was at grocery store prior to presentation when he had another fall and bruised his thigh. He denied any lightheadedness preceding the episode. He denied any chest pain, orthopnea/PND or palpitations. He admitted that he does not drink enough water. He apparently takes Torsemide at home but is not included in home med list. Past Medical History CAD s/p PTCA to OM in 2016 (residual [employer] RPDA and subtotal occlusion apical LAD) being followed by Dr. Landin hypertension, Fuchs' Endothelial dystrophy, follicular lymphoma, glaucoma, hyperlipidemia, GERD, Barretts esophagus, Past Surgical History corneal transplant, advanced surface ablation photorefractive keratectomy, hemorrhoid sx Cholecystectomy, Cataract Removal Family History not contributory Social History Admitted to social intake of wine but denied any smoking or drug use Current Medications Current Medications Aspirin (Children'S Aspirin) 81 mg DAILY PO ; Start 10/20/19 at 09:15 Meclizine HCl (Antivert) 12.5 mg DAILY PO ; Start 10/20/19 at 09:15 Nitroglycerin (Nitrostat) 0.4 mg PRN Q5MIN PRN SL CHEST PAIN; Start 10/20/19 at 09:15 Prednisolone Acetate (Pred Forte) 1 drop QID OD Last administered on 10/20/19at 13:27; Start 10/20/19 at 13:00 Sertraline HCl (Zoloft) 25 mg QHS PO ; Start 10/20/19 at 21:00 Brimonidine Tartrate (Alphagan) 1 drop BID OD ; Start 10/20/19 at 09:15 Pantoprazole Sodium (Protonix) 40 mg DAILYAC PO ; Start 10/20/19 at 09:15 Non-Formulary Medication (Tafluprost/Pf (Zioptan 0.0015% Eye Drops)) 1 each HS OP ; Start 10/20/19 at 21:00; Status UNV Sodium Chloride 1,000 ml @ 75 mls/hr [id number] IV Last administered on 10/20/19at 09:48; Start 10/20/19 at 09:15 Midodrine (Proamatine) 2.5 mg [id number] PO Last administered on 10/20/19at 13:27; Start 10/20/19 at 13:00 Dorzolamide HCl (Trusopt) 1 drop BID OD ; Start 10/20/19 at 10:00 Non-Formulary Medication (Tafluprost/Pf (Zioptan 0.0015% Eye Drops)) 1 drop QHS EACHEYE ; Start 10/20/19 at 21:00; Status UNV Zolpidem Tartrate (Ambien) 5 mg PRN QHS PRN PO INSOMNIA MR X1; Start 10/20/19 at 10:00 Info (Anti-Coagulation Monitoring By Pharmacy) 1 each PRN DAILY PRN MC SEE COMMENTS; Start 10/20/19 at 10:30 Enoxaparin Sodium (Lovenox 80mg Syringe) 70 mg Q12HR SQ Last administered on 10/20/19at 11:36; Start 10/20/19 at 10:30 Iohexol (Omnipaque 350 Mg/ml) 100 ml 1X ONCE IV Last administered on 10/20/19at 11:18; Start 10/20/19 at 10:45; Stop 10/20/19 at 10:46; Status DC Active Scripts Active Metoprolol Succinate ( Xl ) (Metoprolol Succinate) 25 Mg Tab.er.24h 12.5 Mg PO DAILY 30 Days Isosorbide Mononitrate Er (Isosorbide Mononitrate) 30 Mg Tab.er.24h 30 Mg PO DAILY 30 Days Nexium Capsule (Esomeprazole Magnesium) 20 Mg Capsule.dr 1 Cap PO DAILY Reported Azopt (Brinzolamide) 10 Ml Drops.susp 1 Drop RIGHTEYE BID Zioptan 0.0015% Eye Drops (Tafluprost/Pf) 1 Each Droperette 1 Drop EACHEYE QHS 30 Days Triazolam 0.25 Mg Tablet 2 Tab PO HS PRN MDD 2 Tablet(s) 30 Days Alphagan P (Brimonidine Tartrate) 5 Ml Drops 1 Drop RIGHTEYE BID NITROGLYCERIN SubLingual (Nitroglycerin) 0.4 Mg Tab.subl 0.4 Mg SL PRN Q5MIN PRN Zoloft (Sertraline Hcl) 25 Mg Tablet 1 Tab PO QHS Atorvastatin Calcium 40 Mg Tablet 1 Tab PO QHS Meclizine Hcl 12.5 Mg Tablet 1 Tab PO DAILY Zioptan 0.0015% Eye Drops (Tafluprost/Pf) 1 Each Droperette 1 Each OP HS Aspirin 81 Mg Tab.chew 81 Mg PO DAILY LAST DOSE GIVEN: DATE: 06/12 TIME: AM NEXT DOSE DUE: DATE: 06/13 TIME: AM Allergies: Coded Allergies: etomidate (Verified Allergy, Severe, 09/06/15) "Seizure" like activity amoxicillin (Verified Allergy, Intermediate, 06/12/17) Cough ciprofloxacin (Verified Allergy, Intermediate, 06/12/17) Cough doxycycline (Verified Allergy, Intermediate, 08/02/17) propofol (Verified Allergy, Intermediate, 06/12/17) Cough & Sneeze General: YES: Fatigue PSYCHOLOGICAL ROS: No: Hallucinations Eyes: No: Loss of vision HEENT: No: Epistaxis Respiratory: No: Hemoptysis Cardiovascular: No: Chest Pain Gastrointestinal: No: Vomiting, Diarrhea Genitourinary: No: Henaturia Neurological: No: Seizures Skin: No: Rash General: Alert, Oriented X3 HEENT: Atraumatic Lungs: Clear to auscultation Heart: Regular rate Abdomen: Soft Extremities: No edema Psych/Mental Status: Mood NL VITALS Vital Signs Date Time Temp Pulse Resp B/P (MAP) Pulse Ox O2 Delivery O2 Flow Rate FiO2 10/20/19 14:23 97.3 61 20 148/85 (106) 98 Room Air Labs Laboratory Tests Test 10/20/19 08:50 10/20/19 14:15 White Blood Count 7.8 x10^3/uL (4.0-11.0) Red Blood Count 4.94 x10^6/uL (4.30-5.70) Hemoglobin 15.1 g/dL (13.0-17.5) Hematocrit 46.1 % (39.0-53.0) Mean Corpuscular Volume 93 fL (79-100) Mean Corpuscular Hemoglobin 31 pg (25-35) Mean Corpuscular Hemoglobin Concent 33 g/dL (31-37) Red Cell Distribution Width 14.9 % (11.5-14.5) Platelet Count 165 x10^3/uL (140-400) Neutrophils (%) (Auto) 67 % (31-73) Lymphocytes (%) (Auto) 11 % (24-48) Monocytes (%) (Auto) 19 % (0-9) Eosinophils (%) (Auto) 1 % (0-3) Basophils (%) (Auto) 1 % (0-3) Neutrophils # (Auto) 5.3 x10^3uL (1.8-7.7) Lymphocytes # (Auto) 0.9 x10^3/uL (1.0-4.8) Monocytes # (Auto) 1.5 x10^3/uL (0.0-1.1) Eosinophils # (Auto) 0.1 x10^3/uL (0.0-0.7) Basophils # (Auto) 0.1 x10^3/uL (0.0-0.2) Erythrocyte Sedimentation Rate 2 (0-15) D-Dimer (Sandra) 3.05 mg/L (0.00-0.50) Sodium Level 142 mmol/L (136-145) Potassium Level 3.7 mmol/L (3.5-5.1) Chloride Level 106 mmol/L (98-107) Carbon Dioxide Level 25 mmol/L (21-32) Anion Gap 11 (6-14) Blood Urea Nitrogen 28 mg/dL (8-26) Creatinine 1.4 mg/dL (0.7-1.3) Estimated GFR (Cockcroft-Gault) 48.1 BUN/Creatinine Ratio 20 (6-20) Glucose Level 101 mg/dL (70-99) Calcium Level 8.4 mg/dL (8.5-10.1) Magnesium Level 2.0 mg/dL (1.8-2.4) Total Bilirubin 0.6 mg/dL (0.2-1.0) Aspartate Amino Transf (AST/SGOT) 25 U/L (15-37) Alanine Aminotransferase (ALT/SGPT) 30 U/L (16-63) Alkaline Phosphatase 82 U/L (46-116) Creatine Kinase 134 U/L (39-308) Troponin I Quantitative < 0.017 ng/mL (0-0.055) Total Protein 6.3 g/dL (6.4-8.2) Albumin 3.4 g/dL (3.4-5.0) Albumin/Globulin Ratio 1.2 (1.0-1.7) Thyroid Stimulating Hormone (TSH) 3.212 uIU/mL (0.358-3.740) Stool Occult Blood Negative (NEG) Assessment/Plan 1. Generalized weakness and recurrent falls most probably due to dehydration. Orthostatics significantly positive and BUN/Cr prerenal picture. Tele did not show any significant arrhythmias so far. Recommend holding diuretics, hydrate intravenously and if still orthostatic can consider midodrine. 2. CAD s/p PTCA without stent placement in past, clinically stable and chest pain free. 2D echo showed normal LVF. Continue current secondary prevention measures 3. HTN: slightly labile but relatively well controlled 4. HLP: statins Thank you for your consultation LUIS BROWN MD Oct 20, 2019 16:05
[2019-10-20] MEDS ORDERED: IV NORMAL SALINE 1,000ML 1,000 ML IV ONE (16:30)
[2019-10-20 19:14] VITALS: BP 160/82
[2019-10-20] MEDS: SERTRALINE 25 MG TABLET. PO SCH (20:41)
[2019-10-20] MEDS ORDERED: TAFLUPROST OP SCH (21:00)
[2019-10-20] MEDS ORDERED: TAFLUPROST EACHEYE SCH (21:00)
[2019-10-20 21:02] LABS: BILIRUBIN,URINE NEG (NEG); CLARITY,URINE CLEAR; COLOR,URINE YELLOW; GLUCOSE,URINE NEG (NEG); NITRITE,URINE NEG (NEG); UROBILINOGEN,URINE 0.2 mg/dL (0.2 mg/dL)
[2019-10-20 21:03] LABS: BACTERIA,URINE 0 /HPF (0-FEW); RBC,URINE OCC /HPF (0-2); SQUAMOUS EPITHELIAL CELL,UR OCC /LPF; WBC,URINE OCC /HPF (0-4)
[2019-10-20] MEDS: ZOLPIDEM 5 MG TABLET. PO PRN (22:21)
[2019-10-20 22:28] VITALS: BP 147/80
[2019-10-21] VITALS (9 sets, daily range): BP systolic 92–186; BP diastolic 52–91
[2019-10-21] MEDS: IV 1/2 NORMAL SALINE 1,000 ML IV SCH ×2 (02:40→09:43)
[2019-10-21 06:22] LABS: BASO # 0.1 x10^3/uL (0.0-0.2); BASO % 1 % (0-3); EOS # 0.1 x10^3/uL (0.0-0.7); EOS % 1 % (0-3); HEMATOCRIT 44.8 % (39.0-53.0); HEMOGLOBIN 14.6 g/dL (13.0-17.5); LYMPH # 1.1 x10^3/uL (1.0-4.8); LYMPH % 13 % (24-48); MEAN CORPUSCULAR HEMOGLOBIN 30 pg (25-35); MEAN CORPUSCULAR HGB CONC 33 g/dL (31-37); MEAN CORPUSCULAR VOLUME 93 fL (79-100); MONO # 1.5 x10^3/uL (0.0-1.1); MONO % 18 % (0-9); NEUT # 5.7 x10^3uL (1.8-7.7); NEUT % 67 % (31-73); PLATELET COUNT 166 x10^3/uL (140-400); RED CELL DISTRIBUTION WIDTH 14.8 % (11.5-14.5); WHITE BLOOD COUNT 8.5 x10^3/uL (4.0-11.0)
[2019-10-21 06:23] LABS: CALCIUM 8.4 mg/dL (8.5-10.1); GFR 70.8; POTASSIUM 3.6 mmol/L (3.5-5.1)
[2019-10-21] MEDS: MIDODRINE 2.5 MG TABLET PO SCH ×3 (06:43→16:41)
--- NOTE | 2019-10-21 07:38 | PDOC ---
CARDIO Progress Notes Date & Time Date of Service DATE: 10/21/19 TIME: 07:32 Time of Evaluation 07:32 Subjective Notes No dizziness, diaphoresis, SOA, or CP. Feel better following hydration Vitals Vitals Vital Signs Date Time Temp Pulse Resp B/P (MAP) Pulse Ox O2 Delivery O2 Flow Rate FiO2 10/21/19 06:43 76 160/91 10/21/19 05:15 97.9 18 97 Room Air Weight Weight [ ] Input and Output I.O. Intake and Output 10/21/19 07:00 Intake Total 3160 ml Balance 3160 ml Intake Oral 1160 ml IV Total 2000 ml # Voids 9 # Bowel Movements 1 Laboratory Labs Laboratory Tests Test 10/20/19 08:50 10/20/19 14:15 10/20/19 20:35 10/21/19 05:40 White Blood Count 7.8 x10^3/uL (4.0-11.0) 8.5 x10^3/uL (4.0-11.0) Red Blood Count 4.94 x10^6/uL (4.30-5.70) 4.80 x10^6/uL (4.30-5.70) Hemoglobin 15.1 g/dL (13.0-17.5) 14.6 g/dL (13.0-17.5) Hematocrit 46.1 % (39.0-53.0) 44.8 % (39.0-53.0) Mean Corpuscular Volume 93 fL (79-100) 93 fL (79-100) Mean Corpuscular Hemoglobin 31 pg (25-35) 30 pg (25-35) Mean Corpuscular Hemoglobin Concent 33 g/dL (31-37) 33 g/dL (31-37) Red Cell Distribution Width 14.9 % (11.5-14.5) 14.8 % (11.5-14.5) Platelet Count 165 x10^3/uL (140-400) 166 x10^3/uL (140-400) Neutrophils (%) (Auto) 67 % (31-73) 67 % (31-73) Lymphocytes (%) (Auto) 11 % (24-48) 13 % (24-48) Monocytes (%) (Auto) 19 % (0-9) 18 % (0-9) Eosinophils (%) (Auto) 1 % (0-3) 1 % (0-3) Basophils (%) (Auto) 1 % (0-3) 1 % (0-3) Neutrophils # (Auto) 5.3 x10^3uL (1.8-7.7) 5.7 x10^3uL (1.8-7.7) Lymphocytes # (Auto) 0.9 x10^3/uL (1.0-4.8) 1.1 x10^3/uL (1.0-4.8) Monocytes # (Auto) 1.5 x10^3/uL (0.0-1.1) 1.5 x10^3/uL (0.0-1.1) Eosinophils # (Auto) 0.1 x10^3/uL (0.0-0.7) 0.1 x10^3/uL (0.0-0.7) Basophils # (Auto) 0.1 x10^3/uL (0.0-0.2) 0.1 x10^3/uL (0.0-0.2) Erythrocyte Sedimentation Rate 2 (0-15) D-Dimer (Sandra) 3.05 mg/L (0.00-0.50) Sodium Level 142 mmol/L (136-145) 143 mmol/L (136-145) Potassium Level 3.7 mmol/L (3.5-5.1) 3.6 mmol/L (3.5-5.1) Chloride Level 106 mmol/L (98-107) 105 mmol/L (98-107) Carbon Dioxide Level 25 mmol/L (21-32) 29 mmol/L (21-32) Anion Gap 11 (6-14) 9 (6-14) Blood Urea Nitrogen 28 mg/dL (8-26) 22 mg/dL (8-26) Creatinine 1.4 mg/dL (0.7-1.3) 1.0 mg/dL (0.7-1.3) Estimated GFR (Cockcroft-Gault) 48.1 70.8 BUN/Creatinine Ratio 20 (6-20) Glucose Level 101 mg/dL (70-99) 72 mg/dL (70-99) Calcium Level 8.4 mg/dL (8.5-10.1) 8.4 mg/dL (8.5-10.1) Magnesium Level 2.0 mg/dL (1.8-2.4) Total Bilirubin 0.6 mg/dL (0.2-1.0) Aspartate Amino Transf (AST/SGOT) 25 U/L (15-37) Alanine Aminotransferase (ALT/SGPT) 30 U/L (16-63) Alkaline Phosphatase 82 U/L (46-116) Creatine Kinase 134 U/L (39-308) Troponin I Quantitative < 0.017 ng/mL (0-0.055) Total Protein 6.3 g/dL (6.4-8.2) Albumin 3.4 g/dL (3.4-5.0) Albumin/Globulin Ratio 1.2 (1.0-1.7) Vitamin B12 Level 680 pg/mL (247-911) 25-Hydroxy Vitamin D Total 35.1 ng/mL (30-100) Thyroid Stimulating Hormone (TSH) 3.212 uIU/mL (0.358-3.740) Stool Occult Blood Negative (NEG) Urine Collection Type Void Urine Color Yellow Urine Clarity Clear Urine pH 5.5 Urine Specific Belle 1.010 Urine Protein Neg (NEG-TRACE) Urine Glucose (UA) Neg mg/dL (NEG) Urine Ketones (Stick) Neg mg/dL (NEG) Urine Blood Small (NEG) Urine Nitrite Neg (NEG) Urine Bilirubin Neg (NEG) Urine Urobilinogen Dipstick 0.2 mg/dL (0.2 mg/dL) Urine Leukocyte Esterase Neg (NEG) Urine RBC Occ /HPF (0-2) Urine WBC Occ /HPF (0-4) Urine Squamous Epithelial Cells Occ /LPF Urine Bacteria 0 /HPF (0-FEW) Physical Exams HEENT: Neck Supple W Full Motion Chest: Symmetric Lungs: Clear to Auscultation Heart: S1S2, RRR (not on tele) Abdomen: Soft N/T Extremities: No Edema Neurology: alert, oriented, follow commands Assessment Assessment 1. Generalized weakness, recurrent falls 2. Orthostatic hypotension most probably secondary to dehydration. Repeat orthos improved. 3. JUANA; improved 4. CAD s/p PTCA without stent placement in past, clinically stable and chest pain free. 2D echo showed normal LVF. 5. Hypertension 6. Hyperlipidemia; statin 7. Elevated d-dimer; CTA negative for acute changes Recommendations Place on tele Increase ambulation today Resume metoprolol and imdur. Continue current secondary prevention measures Supportive care RIN SHANKS APRN Oct 21, 2019 07:38
[2019-10-21] MEDS: BRIMONIDINE 0.2% OPHTH SOLUTION 5ML BOTTLE. OD SCH ×2 (07:48→21:08)
[2019-10-21] MEDS: ASPIRIN 81 MG TAB.CHEW PO SCH (07:48)
[2019-10-21] MEDS: prednisoLONE ACETATE 1% OPHTH SUSPENSION 5ML BOTTLE. OD SCH ×4 (07:48→21:08)
[2019-10-21] MEDS: DORZOLAMIDE 2% OPHTH SOLUTION 10ML BOTTLE. OD SCH ×2 (07:48→21:08)
[2019-10-21] MEDS: PANTOPRAZOLE 40 MG TABLET. PO SCH (07:48)
[2019-10-21] MEDS: MECLIZINE 12.5 MG TABLET. PO SCH (07:48)
[2019-10-21] MEDS: ENOXAPARIN 40 MG/0.4 ML SYRINGE. SQ SCH (07:50)
[2019-10-21] MEDS ORDERED: ISOSORBIDE MONONITRATE ER 30 MG TAB.ER.24H PO SCH (09:00)
[2019-10-21] MEDS ORDERED: METOPROLOL SUCC 24HR ER 25 MG TAB.ER.24H. PO SCH (09:00)
[2019-10-21] MEDS ORDERED: IV NORMAL SALINE 500ML 500 ML IV ONE (10:45)
[2019-10-21] MEDS: TAFLUPROST OU SCH (21:08)
[2019-10-21] MEDS: ATORVASTATIN CALCIUM 20 MG TABLET PO SCH (21:09)
[2019-10-21] MEDS: SERTRALINE 25 MG TABLET. PO SCH (21:09)
[2019-10-21] MEDS: ZOLPIDEM 5 MG TABLET. PO PRN ×2 (21:09→23:40)
--- NOTE | 2019-10-21 23:49 | PN ---
DATE: SUBJECTIVE: The patient admitted yesterday. He has been falling and generalized weakness, showed marked orthostatic hypotension. The patient is feeling somewhat better today. The patient had a situation where his blood pressure still shows a drop. The patient had been started on midodrine as well as given additional IV fluids to bolster his blood pressure to the point where he did get orthostasis. The patient himself seems to be doing somewhat better, in better spirits. Recommended he receive physical therapy here in the skilled unit. OBJECTIVE: VITAL SIGNS: Blood pressure 156/82, respiratory rate 16, pulse 62, afebrile. GENERAL: The patient is alert and oriented x3. NEURO: Speech fluent, spontaneous, appropriate. Cranial nerves 2-12 are grossly intact. The patient will be continued to be monitored carefully, adjust his medications to try to minimize his orthostasis and make further evaluation on him as indicated. IMPRESSION: Orthostatic hypotension, history of lymphoma, history of coronary artery disease, generalized weakness and glaucoma. PLAN: The patient continued to be monitored carefully, make further evaluation on him as indicated per those results. JHON FRAUSTO MD DR: TWYLA/alejandra JOB#: [id number] / [id number]
[2019-10-22] MEDS: IV 1/2 NORMAL SALINE 1,000 ML IV SCH ×3 (01:15→21:11)
[2019-10-22 05:17] VITALS: BP 167/92
[2019-10-22] MEDS: MIDODRINE 2.5 MG TABLET PO SCH ×3 (06:32→16:06)
[2019-10-22] MEDS: ASPIRIN 81 MG TAB.CHEW PO SCH (08:32)
[2019-10-22] MEDS: MECLIZINE 12.5 MG TABLET. PO SCH (08:32)
[2019-10-22] MEDS: PANTOPRAZOLE 40 MG TABLET. PO SCH (08:32)
[2019-10-22] MEDS: BRIMONIDINE 0.2% OPHTH SOLUTION 5ML BOTTLE. OD SCH ×2 (08:34→20:16)
[2019-10-22] MEDS: prednisoLONE ACETATE 1% OPHTH SUSPENSION 5ML BOTTLE. OD SCH ×4 (08:34→20:15)
[2019-10-22] MEDS: DORZOLAMIDE 2% OPHTH SOLUTION 10ML BOTTLE. OD SCH ×2 (08:34→20:15)
[2019-10-22] MEDS: ENOXAPARIN 40 MG/0.4 ML SYRINGE. SQ SCH (08:34)
[2019-10-22 10:59] VITALS: BP 132/79
[2019-10-22 14:33] VITALS: BP 147/80
[2019-10-22 19:06] VITALS: BP 160/85
[2019-10-22] MEDS: ATORVASTATIN CALCIUM 20 MG TABLET PO SCH (20:16)
[2019-10-22] MEDS: SERTRALINE 25 MG TABLET. PO SCH (20:16)
[2019-10-22] MEDS: TAFLUPROST OU SCH (20:16)
[2019-10-22 22:17] VITALS: BP 177/91
[2019-10-22] MEDS: ZOLPIDEM 5 MG TABLET. PO PRN (22:22)
--- NOTE | 2019-10-23 02:38 | PN ---
DATE: SUBJECTIVE: An 84-year-old gentleman in with marked orthostatic hypotension, multiple falls, multiple bruises, mild dementia. The patient otherwise seems to be resting fairly comfortably, making fairly good progress with PT, OT. The patient otherwise is being adjusted on his medication. PHYSICAL EXAMINATION: VITAL SIGNS: Blood pressures shot up to 160/85, respiratory rate 20, pulse 70, afebrile. GENERAL: The patient is alert, basically oriented, some short-term memory deficit. LUNGS: Otherwise, lungs are diminished, but clear. CARDIOVASCULAR: Regular sinus rhythm. ABDOMEN: Soft, nontender. Bruise is healing up very well overall. IMPRESSION: Otherwise, his labs are basically holding steady and we will continue to monitor him accordingly on these otherwise, the patient's orthostatic hypotension, history of lymphoma, multiple falls at home, history of coronary artery disease, generalized weakness, glaucoma, and some mild short-term memory loss. JHON FRAUSTO MD DR: TWYLA/alejandra JOB#: [id number] / [id number]
[2019-10-23 06:31] VITALS: BP 185/99
[2019-10-23 06:54] VITALS: BP 184/96
[2019-10-23 06:55] VITALS: BP 162/111
[2019-10-23] MEDS: MIDODRINE 2.5 MG TABLET PO SCH ×2 (07:18→08:39)
--- NOTE | 2019-10-23 07:43 | PDOC ---
CARDIO Progress Notes Date & Time Date of Service DATE: 10/23/19 TIME: 07:37 Time of Evaluation 07:37 Subjective Notes Denies dizziness, SOA, chest pain Vitals Vitals Vital Signs Date Time Temp Pulse Resp B/P (MAP) Pulse Ox O2 Delivery O2 Flow Rate FiO2 10/23/19 07:18 80 162/111 10/23/19 06:55 97 10/23/19 06:31 97.6 20 Room Air Weight Weight [ ] Input and Output I.O. Intake and Output 10/23/19 07:00 Intake Total 920 ml Output Total 950 ml Balance -30 ml Intake Oral 920 ml Output Urine Total 950 ml # Voids 4 # Bowel Movements 1 Physical Exams HEENT: Neck Supple W Full Motion Chest: Symmetric Lungs: Clear to Auscultation Heart: S1S2, RRR (not on tele) Abdomen: Soft N/T Extremities: No Edema Neurology: alert, oriented, follow commands Assessment Assessment 1. Generalized weakness, recurrent falls 2. Orthostatic hypotension; remains orthostatic. 3. JUANA; improved 4. CAD s/p PTCA without stent placement in past, clinically stable and chest pain free. 2D echo showed normal LVF. 5. Accelerated hypertension; baseline BP 160-180 range 6. Hyperlipidemia; statin 7. Elevated d-dimer; CTA negative for acute changes Recommendations Resume low-dose BB to reduce baseline blood pressure Continue midodrine given orthostasis 500cc fluid bolus Compression stockings Continue current secondary prevention measures Supportive care Follow up with Dr. Landin as scheduled on November 05. RIN SHANKS APRN Oct 23, 2019 07:43
[2019-10-23] MEDS ORDERED: IV NORMAL SALINE 500ML 500 ML IV ONE (07:45)
[2019-10-23 08:19] LABS: CALCIUM 8.2 mg/dL (8.5-10.1); CREATININE 1.1 mg/dL (0.7-1.3); GFR 63.5; POTASSIUM 3.7 mmol/L (3.5-5.1)
[2019-10-23] MEDS: ASPIRIN 81 MG TAB.CHEW PO SCH (08:40)
[2019-10-23] MEDS: PANTOPRAZOLE 40 MG TABLET. PO SCH (08:40)
[2019-10-23] MEDS: MECLIZINE 12.5 MG TABLET. PO SCH (08:40)
[2019-10-23] MEDS: prednisoLONE ACETATE 1% OPHTH SUSPENSION 5ML BOTTLE. OD SCH (08:41)
[2019-10-23] MEDS: DORZOLAMIDE 2% OPHTH SOLUTION 10ML BOTTLE. OD SCH (08:41)
[2019-10-23] MEDS: BRIMONIDINE 0.2% OPHTH SOLUTION 5ML BOTTLE. OD SCH (08:41)
[2019-10-23] MEDS ORDERED: AMLO5TAB10 PO (08:54)
[2019-10-23] MEDS ORDERED: METOPROLOL TART IMMED RELEASE 25 MG TABLET PO SCH (09:00)
[2019-10-23] MEDS ORDERED: amLODIPine BESYLATE 5 MG TABLET PO SCH (09:00)
[2019-10-23 10:28] VITALS: BP 150/83
[2019-10-23] MEDS ORDERED: SERTRALINE 50 MG TABLET. PO SCH (21:00)
== END 2019-10-23 13:38 | disposition home health service (06) | DRG 640 ==
LOC: 1 SOUTH 08:21
PROVIDERS: ADMIT Family Medicine; ATTEND Family Medicine
DX: E86.0 Dehydration (principal); N17.0 Acute kidney failure with tubular necrosis; E78.5 Hyperlipidemia, unspecified; F03.90 Unspecified dementia, unspecified severity, without behavioral disturbance, psychotic disturbance, mood disturbance, and anxiety; K21.9 Gastro-esophageal reflux disease without esophagitis; I10 Essential (primary) hypertension; H40.9 Unspecified glaucoma; I25.10 Atherosclerotic heart disease of native coronary artery without angina pectoris; I95.1 Orthostatic hypotension; Z85.72 Personal history of non-Hodgkin lymphomas; Z98.61 Coronary angioplasty status; Z90.49 Acquired absence of other specified parts of digestive tract; Z98.49 Cataract extraction status, unspecified eye; Z88.1 Allergy status to other antibiotic agents; Z88.8 Allergy status to other drugs, medicaments and biological substances
CPT/HCPCS: 36415; 70450; 71046; 71275; 73120; 73502; 73552; 80048; 80053; 81001; 82274; 82306; 82550; 82607; 83735; 84443; 84484; 85025; 85379; 85651; 93306; J1650; J7030; J7040; J8597; Q9967; 97110; 97116; 97530; 97535

== ENCOUNTER 2020-03-08 11:12 | Observation (INO) | payer MEDICARE ==
[~2020-03-08] VITALS: Ht 180.3 cm; Wt 74.5 kg
[~2020-03-08 11:12] MED LIST changes: +AMLO5TAB10 PO; +BRIN10DR RIGHTEYE; -MECL12.52 PO; +MECL12.573 PO; +TAFL1DRO EACHEYE; +TRIA0.2567 PO
--- NOTE | 2020-03-08 11:30 | NUR ---
Pt direct admit of Dr Fleming here due to increased weakness and falls. Pt arrived on unit to icu bed 6 via wheelchair. Pt belongings documented, Vitals taken, head to toe completed. Pt given unit routines. Pt resting at time of note.
[2020-03-08 11:43] VITALS: BP 139/90
[2020-03-08] MEDS ORDERED: NITROGLYCERIN SUBLINGUAL 0.4 MG BOTTLE OF 25. SL PRN (13:00)
[2020-03-08 13:08] LABS: ALBUMIN 3.5 g/dL (3.4-5.0); ALBUMIN/GLOBULIN RATIO 1.2 (1.0-1.7); BASO # 0.1 x10^3/uL (0.0-0.2); BASO % 1 % (0-3); CALCIUM 8.8 mg/dL (8.5-10.1); CREATININE 1.5 mg/dL (0.7-1.3); EOS # 0.1 x10^3/uL (0.0-0.7); EOS % 1 % (0-3); GFR 44.4; HEMOGLOBIN 14.1 g/dL (13.0-17.5); LYMPH # 0.8 x10^3/uL (1.0-4.8); LYMPH % 9 % (24-48); MAGNESIUM 2.1 mg/dL (1.8-2.4); MEAN CORPUSCULAR HEMOGLOBIN 31 pg (25-35); MEAN CORPUSCULAR HGB CONC 34 g/dL (31-37); MEAN CORPUSCULAR VOLUME 93 fL (79-100); MONO # 1.7 x10^3/uL (0.0-1.1); MONO % 18 % (0-9); NEUT # 6.7 x10^3uL (1.8-7.7); NEUT % 71 % (31-73); PLATELET COUNT 199 x10^3/uL (140-400); POTASSIUM 4.4 mmol/L (3.5-5.1); RED BLOOD COUNT 4.52 x10^6/uL (4.30-5.70); RED CELL DISTRIBUTION WIDTH 15.2 % (11.5-14.5); TOTAL BILIRUBIN 0.7 mg/dL (0.2-1.0); TOTAL PROTEIN 6.4 g/dL (6.4-8.2); WHITE BLOOD COUNT 9.3 x10^3/uL (4.0-11.0)
--- NOTE | 2020-03-08 13:30 | NUR ---
Nurse notified physcian of ddimer, states no order at this time for CT chest. Ddimer may be elevated due to recent elevated.
[2020-03-08 13:31] VITALS: BP 165/91
[2020-03-08 13:33] VITALS: BP 164/87
[2020-03-08 13:34] VITALS: BP 157/94
--- NOTE | 2020-03-08 14:12 | RAD ---
Single AP view of the chest. Comparison: 10/20/2019. Indication: Syncope Findings: Right internal jugular Port-A-Cath is stable. The heart is enlarged but stable, persistent elevation of the left hemidiaphragm.. There is no pneumothorax or effusion. No air space or interstitial disease. Impression: 1. No acute cardiopulmonary process. Electronically signed by: Greg Walker MD (03/08/2020 2:09 PM) [id number]
[2020-03-08] MEDS ORDERED: METO-239 PO (14:14)
[2020-03-08] MEDS ORDERED: SERT25TA4 PO (14:14)
[2020-03-08] MEDS ORDERED: TRIA0.2567 PO (14:14)
[2020-03-08] MEDS ORDERED: ISOS30TA4 PO (14:14)
[2020-03-08] MEDS ORDERED: OXYB15TA18 PO (14:14)
[2020-03-08] MEDS ORDERED: NITR100C6 PO (14:14)
[2020-03-08] MEDS ORDERED: FLUO5DRO5 EACHEYE (14:14)
[2020-03-08] MEDS ORDERED: MIDO5TAB4 PO (14:14)
[2020-03-08] MEDS: IV NORMAL SALINE 1,000ML 1,000 ML IV SCH (16:00)
[2020-03-08] MEDS ORDERED: ZOLPIDEM 5 MG TABLET. PO PRN (16:15)
[2020-03-08 17:13] LABS: BACTERIA,URINE FEW /HPF (0-FEW); BILIRUBIN,URINE NEG (NEG); CLARITY,URINE CLEAR; COLOR,URINE YELLOW; GLUCOSE,URINE NEG (NEG); NITRITE,URINE NEG (NEG); SQUAMOUS EPITHELIAL CELL,UR FEW /LPF; UROBILINOGEN,URINE 0.2 mg/dL (0.2 mg/dL); WBC,URINE OCC /HPF (0-4)
[2020-03-08 17:14] LABS: HYALINE CASTS, URINE OCC /HPF
[2020-03-08 20:22] VITALS: BP 159/87
[2020-03-08] MEDS ORDERED: BRINZOLAMIDE RIGHTEYE SCH (21:00)
[2020-03-08] MEDS ORDERED: NON FORMULARY ITEM (Brimonidine Tartrate (Alphagan P) 1 DROP) RIGHTEYE SCH (21:00)
[2020-03-08] MEDS ORDERED: TAFLUPROST OP SCH (21:00)
[2020-03-08] MEDS ORDERED: ATORVASTATIN CALCIUM 20 MG TABLET PO SCH (21:00)
[2020-03-08] MEDS ORDERED: ATORVASTATIN CALCIUM 20 MG TABLET ONE (21:00)
[2020-03-08] MEDS ORDERED: SERTRALINE 25 MG TABLET. PO SCH (21:00)
[2020-03-08] MEDS ORDERED: TAFLUPROST EACHEYE SCH (21:00)
[2020-03-08] MEDS: OXYBUTYNIN CHLORIDE 5 MG TABLET PO SCH (21:06)
[2020-03-09 05:07] LABS: UR POTASSIUM 40.3 mmol/L (Not Estab.)
[2020-03-09] MEDS: IV NORMAL SALINE 1,000ML 1,000 ML IV SCH (05:20)
[2020-03-09 06:31] VITALS: BP 134/79
[2020-03-09] MEDS ORDERED: PANTOPRAZOLE 40 MG TABLET. PO SCH (07:30)
[2020-03-09] MEDS: OXYBUTYNIN CHLORIDE 5 MG TABLET PO SCH (08:27)
[2020-03-09] MEDS ORDERED: METOPROLOL SUCC 24HR ER 25 MG TAB.ER.24H. PO SCH (09:00)
[2020-03-09] MEDS ORDERED: MECLIZINE 12.5 MG TABLET. PO SCH (09:00)
[2020-03-09] MEDS ORDERED: FLUOROMETHOLONE 0.1% OU SCH (09:00)
[2020-03-09] MEDS ORDERED: ASPIRIN CHEWABLE 81 MG TABLET. PO SCH (09:00)
[2020-03-09] MEDS ORDERED: amLODIPine BESYLATE 5 MG TABLET PO SCH (09:00)
[2020-03-09] MEDS ORDERED: ISOSORBIDE MONONITRATE ER 30 MG TAB.ER.24H PO SCH (09:00)
--- NOTE | 2020-03-09 09:19 | PN ---
DATE: 03/09/2020 SUBJECTIVE: The patient is feeling somewhat better this morning, admitted for acute syncope. He was falling as he walked numerous times and despite outpatient therapy, he had failed to improve his blood pressure also, was shooting up as high as in the 190s when initially seen, although it has been brought down into the 130s. He was given IV fluids. He seems to be doing better there. OBJECTIVE: VITAL SIGNS: Blood pressure 134/80, respiratory rate 20, pulse 63, afebrile. LUNGS: Diminished, but clear. CARDIOVASCULAR: Regular sinus rhythm. ABDOMEN: Soft, nontender. NEUROLOGIC: The patient is alert and seems to be in good spirits. EXTREMITIES: His right knee is swollen and tender like it has been for several months now. LABORATORY DATA: The patient's COVID-19 test is still pending. Chest x-ray was unremarkable. We will continue to monitor him. An echocardiogram had been ordered due to the situation at this time. We do not know if he will be available. In any case, the patient continues to be monitored carefully, will try to walk-in. He has chemotherapy for his lymphoma and seems to be doing quite well with that. IMPRESSION: Acute syncope, history of lymphoma, post-chemo, degenerative arthritis of the right knee, mild dementia. Continue rehabilitation. JHON FRAUSTO MD DR: TWYLA/alejandra JOB#: [id number] / [id number]
[2020-03-09 10:23] VITALS: BP 120/74
[2020-03-09] MEDS ORDERED: METO-239 PO (11:30)
--- NOTE | 2020-03-09 12:52 | NUR ---
NSG NOTE; DR TADEO FOLLOW UP APPT WE CONTACTED DR TADEO'S OFFICE FOR FOLLOW UP APPT WITH [facility]. THE OFFICE WILL CALL PT AT HOME TODAY TO SCHED THE APPT FOR SUNDAY
--- NOTE | 2020-03-09 13:05 | NUR ---
PATIENT IS DISCHARGED TO HOME, PATIENT IS GIVE DISCHARGED INFORMATION R/T MEDICATION AND FOLLOW UP APPOINTMENTS, PATIENT VERBALIZED UNDERSTANDING. PATIENT WAS TAKEN TO THE FRONT DOOR VIA W/C ACCOMPANIED BY THIS RN. FAMILY MEMBER WAS NOTIFIED ABOUT PATIENTS MEDICATIONS AND FOLLOW UP APPOINTMENTS, FAMILY MEMBER VERBALIZED UNDERSTANDING. PATIENT WAS TAKEN HOME BY FAMILY MEMBER VIA PERSONAL VEHICLE.
--- NOTE | 2020-03-11 07:54 | EKG ---
[address] [address] Test Date: 2020-03-08 Test Time: 13:10:30 Pat Name: DONNELL CONKLIN Department: Room: 125 A Gender: Clinical Counselor: : [id number] Requested By: JHON FRAUSTO Order Number: [id number] Reading MD: Delonte Keenan Measurements Intervals [place] Rate: P: IL: QRS: QRSD: T: QT: QTc: Interpretive Statements Compared to ECG 04/23/2019 06:22:30 No significant changes Electronically Signed On 03-11-2020 8:04:05 CDT by Delonte Keenan
--- NOTE | 2020-03-15 09:28 | DS ---
DATE OF DISCHARGE: 03/09/2020 HOSPITAL COURSE: An 84-year-old gentleman who has been falling numerous times at home and apparently had been to other Emergency Rooms and had been discharged. He kept falling and injuring himself. The patient was fairly lightheaded and dizzy. The patient came in through the Emergency Room and was admitted for observation. The patient made good progress during the rest of his hospitalization. He was given a liter or two of IV fluid. The patient has been undergoing chemotherapy for lymphoma and has done quite well with that. After the initial episode, the patient made good progress. He did sustain some rehabilitation here at the hospital and we stabilized his blood pressures and he was discharged home for followup with his outpatient assurance officer, Dr. Landin. IMPRESSION: Syncope, dehydration, history of lymphoma. PLAN: The patient will be on a heart healthy diet, decreased activity, and we will review his medications with Dr. Landin. JHON FRAUSTO MD DR: TWYLA/alejandra JOB#: [id number] / [id number]
== END 2020-03-09 13:00 | disposition home or self-care (01) ==
LOC: INTOOBSV 11:12 → 1 SOUTH 11:12 → ICU 11:13 → 1 SOUTH 03-09 00:14
PROVIDERS: ADMIT Family Medicine; ATTEND Family Medicine
DX: Z03.818 Encounter for observation for suspected exposure to other biological agents ruled out (principal); R55 Syncope and collapse; I16.0 Hypertensive urgency; I12.9 Hypertensive chronic kidney disease with stage 1 through stage 4 chronic kidney disease, or unspecified chronic kidney disease; R53.1 Weakness; I95.89 Other hypotension; N18.3 Chronic kidney disease, stage 3 (moderate); I25.10 Atherosclerotic heart disease of native coronary artery without angina pectoris; F03.90 Unspecified dementia, unspecified severity, without behavioral disturbance, psychotic disturbance, mood disturbance, and anxiety; M17.11 Unilateral primary osteoarthritis, right knee; Z85.72 Personal history of non-Hodgkin lymphomas; Z79.899 Other long term (current) drug therapy
CPT/HCPCS: 36415; 71045; 80053; 81001; 82436; 82550; 83735; 84133; 84300; 84484; 85025; 85379; 87635; 93005; 96360; 96361; G0378; G0379; J8597; J7030

== ENCOUNTER → 2020-05-03 | Outpatient (CLI) | payer MEDICARE ==
[~2020-05-03] MED LIST changes: +FLUO5DRO5 EACHEYE; +MIDO5TAB4 PO; +NITR100C6 PO; +OXYB15TA18 PO; +SERT25TA4 PO
[2020-05-03 15:56] LABS: BASO % 1 % (0-3); EOS # 0.1 x10^3/uL (0.0-0.7); EOS % 2 % (0-3); HEMATOCRIT 43.2 % (39.0-53.0); HEMOGLOBIN 14.1 g/dL (13.0-17.5); LYMPH # 0.7 x10^3/uL (1.0-4.8); LYMPH % 8 % (24-48); MEAN CORPUSCULAR HEMOGLOBIN 31 pg (25-35); MEAN CORPUSCULAR HGB CONC 33 g/dL (31-37); MEAN CORPUSCULAR VOLUME 93 fL (79-100); MONO # 1.3 x10^3/uL (0.0-1.1); MONO % 16 % (0-9); NEUT % 74 % (31-73); PLATELET COUNT 184 x10^3/uL (140-400); RED BLOOD COUNT 4.63 x10^6/uL (4.30-5.70); RED CELL DISTRIBUTION WIDTH 14.9 % (11.5-14.5); WHITE BLOOD COUNT 8.1 x10^3/uL (4.0-11.0)
[2020-05-03 16:03] LABS: ALBUMIN 3.2 g/dL (3.4-5.0); ALBUMIN/GLOBULIN RATIO 1.1 (1.0-1.7); CALCIUM 8.5 mg/dL (8.5-10.1); CREATININE 1.4 mg/dL (0.7-1.3); GFR 48.1; POTASSIUM 4.2 mmol/L (3.5-5.1); TOTAL BILIRUBIN 0.8 mg/dL (0.2-1.0); TOTAL PROTEIN 6.2 g/dL (6.4-8.2)
--- NOTE | 2020-05-03 16:06 | RAD ---
CT chest and abdomen without contrast Indication: Chest and abdominal pain Technique: Noncontrast CT imaging was performed of the chest and abdomen, multiplanar reconstruction images submitted. One or more of the following individualized dose reduction techniques were utilized for this examination: 1. Automated exposure control 2. Adjustment of the mA and/or kV according to patient size 3. Use of iterative reconstruction technique. Comparison: Chest CTA October 20, [address] April 23, 2019 CHEST: Findings: There is again elevation of the left hemidiaphragm. There is again degree of left lower lobe bronchiectasis, also some persistent somewhat increased left lower lobe density adjacent to the elevated left hemidiaphragm. There is trace left pleural fluid now present. There is no pneumothorax. There is also mild right lower lobe bronchiectasis medially, somewhat increased associated mild atelectasis/infiltrate more medially as seen on images 53-66 series 2. There is coronary calcification. There is no pericardial effusion. There is right internal jugular port catheter again present, courses into the superior vena cava. There is multilevel thoracic spondylosis. There is some gas distention of the esophagus greater than previously. IMPRESSION: 1. There is again elevation of the left hemidiaphragm, adjacent left lower lobe parenchymal density somewhat greater which may be component of compressive atelectasis although underlying infiltrate difficult to exclude. There is now trace left pleural fluid. There is also increased mild infiltrate or atelectasis of the medial aspect of the right lower lobe. 2. There is coronary calcification. 3. There is some increased gas distention of the esophagus. Abdomen FINDINGS: There are again bilateral renal cysts, largest on the left inferiorly about 6.6 cm. There is a small exophytic hyperdense lesion projecting superiorly from the right kidney about 1 cm in size versus previously about 0.8 cm. There is also exophytic lesion projecting inferiorly left kidney about 1.8 cm, density measurements greater than a simple cyst 22 Hounsfield units although size is similar. There is a 1.3 cm exophytic lesion projecting medially from the mid to superior left kidney with density measurements greater than a simple cyst 36 Hounsfield units, size fairly similar. There is atherosclerotic calcification of the abdominal aorta. There is new retroperitoneal lymphadenopathy. For example a node to the left of the abdominal aorta image 127 series 2 measures about 1.2 cm short axis dimension. Node more superiorly of the left retroperitoneum lateral to the abdominal aorta image 109 measures about 1.1 cm short axis dimension, previously about 0.2 cm. More enlarged nodes on the right located posterior to the inferior vena cava measures about 1.2 cm short axis dimension, previously 0.3 cm. There has been cholecystectomy. There is no new significant adrenal nodularity. No new significant abnormality is identified of the normal sized spleen. No new obvious abnormality is identified of the liver. Fullness near the pancreatic head is believed to be a component of bowel, otherwise limited characterization. Visualized bowel is not significantly dilated. There is no free air or free fluid of the visualized abdomen. There is multilevel lumbar degenerative disc disease. 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 IMPRESSION: 1.There is new retroperitoneal lymphadenopathy, malignancy in the differential considerations, including consideration of lymphoma. 2. There are again bilateral renal cysts. There are also foci bilaterally which do not have characteristics of simple cysts, possibly complex or hemorrhagic cyst although difficult to exclude underlying solid lesions. Post contrast imaging is recommended if the patient is able to perform. If contrast is not able to be given, evaluation with ultrasound is recommended. Electronically signed by: Wesley Ragsdale MD (05/03/2020 4:03 PM) [id number]
[2020-05-03 16:12] LABS: BILIRUBIN,URINE NEG (NEG); CLARITY,URINE CLEAR; COLOR,URINE YELLOW; GLUCOSE,URINE NEG (NEG); NITRITE,URINE NEG (NEG); RBC,URINE 0 /HPF (0-2); UROBILINOGEN,URINE 0.2 mg/dL (0.2 mg/dL)
[2020-05-03 16:13] LABS: BACTERIA,URINE 0 /HPF (0-FEW); HYALINE CASTS, URINE OCC /HPF; SQUAMOUS EPITHELIAL CELL,UR OCC /LPF; WBC,URINE OCC /HPF (0-4)
[2020-05-03 17:04] LABS: % LYMPHS 9 % (24-48); % MONOS 18 % (0-10); % SEGS 73 % (35-66)
[2020-05-03 17:05] LABS: PLT ESTIMATE ADEQUATE (ADEQUATE)
== END ==
LOC: CT 15:01
PROVIDERS: ATTEND Family Medicine
DX: N28.1 Cyst of kidney, acquired (principal); I70.0 Atherosclerosis of aorta; I25.10 Atherosclerotic heart disease of native coronary artery without angina pectoris; R14.0 Abdominal distension (gaseous); J98.4 Other disorders of lung; R59.0 Localized enlarged lymph nodes; K44.9 Diaphragmatic hernia without obstruction or gangrene; M51.36 Other intervertebral disc degeneration, lumbar region; Z90.49 Acquired absence of other specified parts of digestive tract; M41.85 Other forms of scoliosis, thoracolumbar region
CPT/HCPCS: 36415; 71250; 74150; 80053; 81001; 85007; 85025

== ENCOUNTER 2020-05-18 15:03 | Inpatient (IN) | payer MEDICARE ==
[~2020-05-18] VITALS: Ht 180.3 cm; Wt 73.1 kg
[2020-05-18] MEDS ORDERED: IOHEXOL 300 MG/ML 75 ML VIAL. IV ONE (15:30)
[2020-05-18] MEDS ORDERED: IV NORMAL SALINE 1,000ML 1,000 ML IV ONE (15:30)
--- NOTE | 2020-05-18 15:41 | PHYS DOC ---
Past History Past Medical History: Anxiety, GERD, Glaucoma, High Cholesterol, Hypertension, Other Past Surgical History: Angioplasty, Cancer Surgery, Other Smoking: Quit Greater Than 1 Year Alcohol Use: Occasionally Drug Use: None General Adult EDM: Chief Complaint: MECHANICAL FALL HPI: HPI: 84-year-old male presents with report of fall last night. Patient reports he thinks he might have "passed out ". Patient has been having frequent falls at least once per week for the last several months. Patient reports a few weeks ago he fell and injured his right lateral chest. Reports bruising to this area. Denies current chest pain. Patient does report some right knee pain but reports this is chronic in nature. Reports he is supposed to have some surgery on this knee in the coming weeks. Denies nausea or vomiting. Denies fever or chills. Denies known exposure to COVID-19. Review of Systems: Review of Systems: Constitutional: Denies fever or chills Eyes: Denies redness or eye pain HENT: Denies epistaxis or sore throat Respiratory: Denies cough or shortness of breath Cardiovascular: Reports right lateral chest wall pain; denies palpitations GI: Denies abdominal pain, nausea, or vomiting : Denies dysuria or hematuria Musculoskeletal: Denies back pain; reports right knee pain (chronic) Integument: Denies rash; reports bruising to right lateral lower ribs Neurologic: Denies headache; reports generalized weakness Complete systems were reviewed and found to be within normal limits, except as documented in this note. Heart Score: HEART Score for Chest Pain: HEART Score for Chest Pain Response (Comments) Value History Slighlty/Non-Suspicious 0 ECG Normal 0 Age > 65 2 Risk Factors >3 Risk Factors or Hx CAD 2 Troponin < Normal Limit 0 Total 4 Risk Factors: Risk Factors: DM, Current or recent (<one month) smoker, HTN, HLP, family history of CAD, obesity. Risk Scores: Score 0 - 3: 2.5% MACE over next 6 weeks - Discharge Home Score 4 - 6: 20.3% MACE over next 6 weeks - Admit for Clinical Observation Score 7 - 10: 72.7% MACE over next 6 weeks - Early Invasive Strategies Current Medications: Current Meds: Current Medications Medications (Trade) Dose Ordered Sig/Joanna Start Time Stop Time Status Last Admin Dose Admin Iohexol (Omnipaque 300 Mg/ml) 75 ml 1X ONCE 05/18/20 15:30 05/18/20 15:35 DC Sodium Chloride 1,000 ml @ 1,000 mls/hr 1X ONCE 05/18/20 15:30 05/18/20 16:29 05/18/20 15:38 1,000 MLS/HR Allergies: Allergies: Allergies Coded Allergies Type Severity Reaction Last Updated Verified etomidate Allergy Severe 09/06/15 Yes amoxicillin Allergy Intermediate 06/12/17 Yes ciprofloxacin Allergy Intermediate 06/12/17 Yes doxycycline Allergy Intermediate 08/02/17 Yes propofol Allergy Intermediate 06/12/17 Yes Physical Exam: PE: Constitutional: Elderly, well nourished, no acute distress, non-toxic appearance HENT: Normocephalic, atraumatic Eyes: PERRL, EOMI, conjunctiva normal, no discharge, no nystagmus Neck: Normal range of motion, no tenderness, supple Cardiovascular: Heart rate normal, regular rhythm Lungs & Thorax: Bilateral breath sounds clear to auscultation, no wheezing, right lateral chest wall pain with 3cm subacute ecchymosis/hematoma noted Abdomen: Soft, no tenderness, pelvis stable and nontender Skin: Warm, dry, no erythema, no rash Back: No midline tenderness, no CVA tenderness Extremities: ROM intact to all 4 extremities- some discomfort to right knee, trace BLE edema Neurologic: Alert and oriented X 3, normal motor function, normal sensory function, no focal deficits noted Psychologic: Affect normal, judgment normal Current Patient Data: Vital Signs: Vital Signs Date Time Temp Pulse Resp B/P (MAP) Pulse Ox O2 Delivery O2 Flow Rate FiO2 05/18/20 15:21 97.9 74 16 147/87 (107) 96 Room Air EKG: EKG: @1533 NSR at 72bpm, NO ST elevation, QRS 78ms, QT/QTc 410/451ms Radiology/Procedures: Radiology/Procedures: PROCEDURE: CT HEAD AND CERVICAL SPINE WO Examination: CT head and cervical spine without contrast CT HEAD INDICATION: Reason: syncope, pain s/p fall / Spl. Instructions: / History: COMPARISON: 12/31/2018 Exposure: One or more of the following individualized dose reduction techniques were utilized for this examination: 1. Automated exposure control 2. Adjustment of the mA and/or kV according to patient size 3. Use of iterative reconstruction technique TECHNIQUE: 5 mm contiguous axial images were obtained from the skull base to the vertex in both bone and soft tissue algorithm. FINDINGS: Mild bilateral periventricular white matter hypodensities likely chronic small vessel ischemic disease. No evidence of acute intracranial hemorrhage. No extra-axial fluid collections. No mass effect or midline shift. Ventricular size is appropriate. Basal cisterns are patent. No fractures identified.Head-white differentiation is preserved.Globes and orbits are within normal limits. Paranasal sinuses and mastoid air cells are clear. IMPRESSION: No acute intracranial findings. CT CERVICAL SPINE INDICATION: Reason: syncope, pain s/p fall / Spl. Instructions: / History: COMPARISON: None Available. Technique: 2.5 mm contiguous axial images were obtained from the skull base through the cervicothoracic junction in both bone and soft tissue algorithm. Additional sagittal and coronal reconstructions were also performed. FINDINGS: Vertebral body height are maintained. Cervical lordosis is preserved. The lateral masses of C1 are aligned upon C2. No fractures identified. Severe intervertebral disc height loss identified throughout cervical spine most at C5-C6, C6-C7 vertebral levels. Posterior disc bulge identified at C4-C5 vertebral level causing anterior thecal sac impression causing pvmp-zu-nppnkxul spinal canal stenosis identified in this level. The paraspinous soft tissues are unremarkable. Visualized intracranial contents are unremarkable. Lung apices are clear. IMPRESSION: 1. No acute fracture cervical spine. 2. Posterior disc bulge identified at C4-C5 vertebral levels causing anterior thecal sac impression causing [id number]-nc-rreqkbtk spinal canal stenosis. 3. Severe degenerative changes cervical spine. Electronically signed by: River Mirza MD (05/18/2020 4:14 PM) [id number] PROCEDURE: KNEE RIGHT 3V Three-view right knee study Clinical indications: Right knee pain. FINDINGS: No acute fracture or dislocation or lytic process is seen. There is degenerative joint space narrowing and spurring of the medial and lateral tibiofemoral joint compartments and the patellofemoral joint compartment. Small right knee joint effusion is seen. Calcified atheromatous arterial disease is seen. 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 Electronically signed by: Tommy Bradshaw MD (05/18/2020 4:03 PM) [id number] Course & Med Decision Making: Course & Med Decision Making Pertinent Labs and Imaging studies reviewed. (See chart for details) Elderly patient presents with report of fall last night. Patient reports he is unsure how he fell. Reports believes he "passed out ". Family called PCP- Dr. Frausto who instructed patient to present to the ER for further evaluation and possible admission. Patient neurologically intact at this time. NIHSS 0. Patient does report some chronic pain to right knee. Patient noted to have contusion/healing hematoma to right lateral chest wall. CT head/cervical spine with internal bleeding or fracture. Notation of possible disc herniation noted. CT chest with findings of left sided rib fractures. When asked patient regarding left chest wall and injury patient responds "I am not sure, I might have also fallen on that side ". IV fluid hydration provided. Orthostatic vital signs stable. UA pending. Patient requiring admission for further evaluation and treatment. Discussed with Dr. Frausto (hospitalist) who is in agreement with admission. Discussed findings and plan with patient, who acknowledges understanding and agreement. Dragon Disclaimer: Dragon Disclaimer: This electronic medical record was generated, in whole or in part, using a voice recognition dictation system. Departure Departure: Impression: Primary Impression: Syncope Qualified Codes: R55 - Syncope and collapse Additional Impressions: Knee pain, right Qualified Codes: M25.561 - Pain in right knee; G89.29 - Other chronic pain Contusion of right chest wall Qualified Codes: S20.211A - Contusion of right front wall of thorax, initial encounter Multiple fractures of ribs, left side, initial encounter for closed fracture Generalized weakness Disposition: ADMITTED INPATIENT Admitting Physician: Mart Frausto Condition: STABLE Referrals: MART FRAUSTO MD (PCP) Justification of Admission: Justification of Admission: Justification of Admission Dx: Yes Comments: Syncope, left rib fracture NIHSS - ED NIH Stroke Scale: NIH Stroke Scale Response (Comments) Value Level of Consciousness: 0 Alert/Responsive 0 LOC Questions: 0 Answers both correctly 0 LOC Commands: 0 Performs both tasks 0 Best Gaze: 0 Normal 0 Visual: 0 No visual loss 0 Facial Palsy: 0 Normal, symmetrical 0 Motor - Left Arm 0 No drift 0 Motor - Right Arm 0 No drift 0 Motor - Left Leg 0 No drift 0 Motor: Right Leg 0 No drift 0 Limb Ataxia: 0 Absent 0 Sensory: 0 No loss 0 Best Language: 0 Normal 0 Dysathria: 0 Normal 0 Extinction and Inattention: 0 Normal 0 Total 0 SMARTMARLYS DO May 18, 2020 15:41
[2020-05-18 16:01] LABS: BASO # 0.1 x10^3/uL (0.0-0.2); BASO % 1 % (0-3); EOS # 0.1 x10^3/uL (0.0-0.7); EOS % 1 % (0-3); HEMATOCRIT 44.7 % (39.0-53.0); HEMOGLOBIN 14.8 g/dL (13.0-17.5); LYMPH # 0.5 x10^3/uL (1.0-4.8); LYMPH % 6 % (24-48); MEAN CORPUSCULAR HEMOGLOBIN 30 pg (25-35); MEAN CORPUSCULAR HGB CONC 33 g/dL (31-37); MEAN CORPUSCULAR VOLUME 92 fL (79-100); MONO # 1.3 x10^3/uL (0.0-1.1); MONO % 16 % (0-9); NEUT # 6.5 x10^3uL (1.8-7.7); NEUT % 76 % (31-73); PLATELET COUNT 195 x10^3/uL (140-400); RED BLOOD COUNT 4.87 x10^6/uL (4.30-5.70); RED CELL DISTRIBUTION WIDTH 14.7 % (11.5-14.5); WHITE BLOOD COUNT 8.5 x10^3/uL (4.0-11.0)
[2020-05-18 16:04] LABS: CALCIUM 8.4 mg/dL (8.5-10.1); CREATININE 1.4 mg/dL (0.7-1.3); GFR 48.1; POTASSIUM 3.8 mmol/L (3.5-5.1)
--- NOTE | 2020-05-18 16:06 | RAD ---
Three-view right knee study Clinical indications: Right knee pain. FINDINGS: No acute fracture or dislocation or lytic process is seen. There is degenerative joint space narrowing and spurring of the medial and lateral tibiofemoral joint compartments and the patellofemoral joint compartment. Small right knee joint effusion is seen. Calcified atheromatous arterial disease is seen. 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 Electronically signed by: Tommy Bradshaw MD (05/18/2020 4:03 PM) [id number]
--- NOTE | 2020-05-18 16:17 | RAD ---
Examination: CT head and cervical spine without contrast CT HEAD INDICATION: Reason: syncope, pain s/p fall / Spl. Instructions: / History: COMPARISON: 12/31/2018 Exposure: One or more of the following individualized dose reduction techniques were utilized for this examination: 1. Automated exposure control 2. Adjustment of the mA and/or kV according to patient size 3. Use of iterative reconstruction technique TECHNIQUE: 5 mm contiguous axial images were obtained from the skull base to the vertex in both bone and soft tissue algorithm. FINDINGS: Mild bilateral periventricular white matter hypodensities likely chronic small vessel ischemic disease. No evidence of acute intracranial hemorrhage. No extra-axial fluid collections. No mass effect or midline shift. Ventricular size is appropriate. Basal cisterns are patent. No fractures identified.Head-white differentiation is preserved.Globes and orbits are within normal limits. Paranasal sinuses and mastoid air cells are clear. IMPRESSION: No acute intracranial findings. CT CERVICAL SPINE INDICATION: Reason: syncope, pain s/p fall / Spl. Instructions: / History: COMPARISON: None Available. Technique: 2.5 mm contiguous axial images were obtained from the skull base through the cervicothoracic junction in both bone and soft tissue algorithm. Additional sagittal and coronal reconstructions were also performed. FINDINGS: Vertebral body height are maintained. Cervical lordosis is preserved. The lateral masses of C1 are aligned upon C2. No fractures identified. Severe intervertebral disc height loss identified throughout cervical spine most at C5-C6, C6-C7 vertebral levels. Posterior disc bulge identified at C4-C5 vertebral level causing anterior thecal sac impression causing ztak-tn-lyacfomp spinal canal stenosis identified in this level. The paraspinous soft tissues are unremarkable. Visualized intracranial contents are unremarkable. Lung apices are clear. IMPRESSION: 1. No acute fracture cervical spine. 2. Posterior disc bulge identified at C4-C5 vertebral levels causing anterior thecal sac impression causing gswk-tr-byvkuehc spinal canal stenosis. 3. Severe degenerative changes cervical spine. Electronically signed by: River Mirza MD (05/18/2020 4:14 PM) [id number]
--- NOTE | 2020-05-18 16:18 | RAD ---
Exam: CT of chest with contrast INDICATION: Right chest wall pain status post fall TECHNIQUE: Sequential axial images through the chest obtained following the administration of 60 mL of Isovue-370 IV contrast. Sagittal and coronal reformatted images were reconstructed from the axial data and reviewed. 3-D reformatted images were reconstructed from the axial data and reviewed. Comparisons: 05/03/2020 FINDINGS: Visualized portions of the thyroid are unremarkable. No enlarged mediastinal lymph nodes are identified. Heart size is normal. No pericardial effusion. Thoracic aorta has a normal course and caliber. Pulmonary artery is not enlarged. Airways are patent. Patchy areas of groundglass opacity in the left upper lobe. No consolidation or pneumothorax. Linear bandlike opacity at the left lung base likely atelectasis. No pleural effusion or thickening. There is elevation of the left hemidiaphragm which is stable when compared to the prior study. Otherwise, visualized upper abdomen is unremarkable. Mildly displaced fractures involving the left lateral eighth and ninth ribs. Additionally there is a mildly displaced fracture involving the posterior lateral right 10th and 11th ribs no suspicious osseous lesions IMPRESSION: 1. Mildly displaced fractures involving the left lateral eighth and ninth ribs as well as the posterior lateral right 10th and 11th ribs. 2. Patchy areas of groundglass opacity in the left upper lobe favored to be infectious or inflammatory in etiology. Correlate for atypical infections. Exposure: One or more of the following in the visualized dose reduction techniques were utilized for this examination: 1. Automated exposure control 2. Adjustment of the MA and/or KV according to patient size 3. Use of iterative of reconstructive technique Electronically signed by: Princess Velazco MD (05/18/2020 4:15 PM) [id number]
[2020-05-18 16:20] LABS: ALBUMIN 3.2 g/dL (3.4-5.0); ALBUMIN/GLOBULIN RATIO 1.2 (1.0-1.7); TOTAL BILIRUBIN 0.7 mg/dL (0.2-1.0); TOTAL PROTEIN 5.9 g/dL (6.4-8.2)
[2020-05-18] MEDS ORDERED: ASPIRIN 325 MG TABLET PO ONE (16:45)
[2020-05-18] MEDS ORDERED: ONDANSETRON PF 4 MG/2 ML VIAL. IVP PRN (16:45)
[2020-05-18] MEDS ORDERED: ACETAMINOPHEN 325 MG TABLET PO PRN (16:45)
[2020-05-18 17:12] VITALS: BP 179/108
[2020-05-18] MEDS ORDERED: METO-239 PO (18:08)
[2020-05-18] MEDS ORDERED: BRIN10DR RIGHTEYE (18:08)
[2020-05-18] MEDS ORDERED: PREVAGEN PO (18:08)
[2020-05-18] MEDS ORDERED: TAFL1DRO EACHEYE (18:09)
[2020-05-18 18:43] LABS: BILIRUBIN,URINE NEG (NEG); CLARITY,URINE CLEAR; COLOR,URINE YELLOW; GLUCOSE,URINE NEG (NEG)
[2020-05-18 18:44] LABS: BACTERIA,URINE 0 /HPF (0-FEW); NITRITE,URINE NEG (NEG); RBC,URINE RARE /HPF (0-2); SQUAMOUS EPITHELIAL CELL,UR OCC /LPF; UROBILINOGEN,URINE 0.2 mg/dL (0.2 mg/dL); WBC,URINE RARE /HPF (0-4)
[2020-05-18] MEDS ORDERED: NITROGLYCERIN SUBLINGUAL 0.4 MG BOTTLE OF 25. SL PRN (18:45)
[2020-05-18] MEDS ORDERED: ZOLPIDEM 5 MG TABLET. PO PRN (19:00)
[2020-05-18 19:06] VITALS: BP 167/77
[2020-05-18] MEDS: ATORVASTATIN CALCIUM 20 MG TABLET PO SCH (20:13)
[2020-05-18] MEDS: IV DEXTROSE 5 %-0.45 % NACL 1,000 ML IV SCH (20:13)
--- NOTE | 2020-05-18 20:14 | EKG ---
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
[2020-05-18] MEDS ORDERED: SERTRALINE 25 MG TABLET. PO SCH (21:00)
[2020-05-18] MEDS ORDERED: TAFLUPROST EACHEYE SCH (21:00)
[2020-05-18 22:57] VITALS: BP 167/84
[2020-05-19 05:42] VITALS: BP 156/97
[2020-05-19 07:41] LABS: BASO # 0.1 x10^3/uL (0.0-0.2); BASO % 1 % (0-3); EOS # 0.1 x10^3/uL (0.0-0.7); EOS % 2 % (0-3); HEMATOCRIT 43.1 % (39.0-53.0); HEMOGLOBIN 14.3 g/dL (13.0-17.5); LYMPH # 0.9 x10^3/uL (1.0-4.8); LYMPH % 12 % (24-48); MEAN CORPUSCULAR HEMOGLOBIN 30 pg (25-35); MEAN CORPUSCULAR HGB CONC 33 g/dL (31-37); MEAN CORPUSCULAR VOLUME 92 fL (79-100); MONO # 1.3 x10^3/uL (0.0-1.1); MONO % 18 % (0-9); NEUT # 5.1 x10^3uL (1.8-7.7); NEUT % 68 % (31-73); PLATELET COUNT 179 x10^3/uL (140-400); RED BLOOD COUNT 4.71 x10^6/uL (4.30-5.70); RED CELL DISTRIBUTION WIDTH 15.1 % (11.5-14.5); WHITE BLOOD COUNT 7.5 x10^3/uL (4.0-11.0)
[2020-05-19 07:56] LABS: ALBUMIN 2.9 g/dL (3.4-5.0); CALCIUM 8.5 mg/dL (8.5-10.1); CREATININE 1.3 mg/dL (0.7-1.3); GFR 52.3; POTASSIUM 3.6 mmol/L (3.5-5.1); TOTAL BILIRUBIN 0.8 mg/dL (0.2-1.0); TOTAL PROTEIN 5.9 g/dL (6.4-8.2)
[2020-05-19] MEDS: IV DEXTROSE 5 %-0.45 % NACL 1,000 ML IV SCH (08:05)
[2020-05-19] MEDS: PANTOPRAZOLE 40 MG TABLET. PO SCH (08:43)
[2020-05-19] MEDS: ISOSORBIDE MONONITRATE ER 30 MG TAB.ER.24H PO SCH (08:43)
[2020-05-19] MEDS: MECLIZINE 12.5 MG TABLET. PO SCH (08:43)
[2020-05-19] MEDS: OXYBUTYNIN CHLORIDE 5 MG TABLET PO SCH ×2 (08:43→14:14)
[2020-05-19] MEDS: ASPIRIN CHEWABLE 81 MG TABLET. PO SCH (08:44)
[2020-05-19] MEDS: METOPROLOL SUCC 24HR ER 25 MG TAB.ER.24H. PO SCH (08:44)
[2020-05-19] MEDS: DORZOLAMIDE 2% OPHTH SOLUTION 10ML BOTTLE. OD SCH (08:51)
--- NOTE | 2020-05-19 10:50 | HP ---
ADMIT DATE: HISTORY OF PRESENT ILLNESS: An 84-year-old male who has been falling at home, passing out, near syncope and syncope with fractured ribs. He came in through the Emergency Room because of increased pain, shortness of breath and generalized weakness, unable to support himself at home and multiple falls, with multiple contusions noted. The patient denies chest pain and the sense of substernal chest pain. Does have rib pain, shortness of breath and generalized weakness, unable to stand on his feet without passing out. PAST MEDICAL AND SURGICAL HISTORY: PMH, tinnitus, cataracts, glaucoma, coronary artery surgery, coronary stent in 2016, hypercholesterolemia, sleep apnea, Cortez's esophagus, hemorrhoids, cholecystectomy, hemorrhoidectomy, urinary urgency, generalized weakness, osteoarthritis, skin cancer. IMMUNIZATIONS: Up-to-date. ALLERGIES: Adverse reaction to PROPOFOL, causes sneezing and coughing. Also, allergy to AMOXICILLIN, CIPRO, DOXYCYCLINE, ETOMIDATE and PROPOFOL. SOCIAL HISTORY: No smoking, alcohol or drug use. CODE STATUS: Full code. FAMILY HISTORY: Noncontributory. REVIEW OF SYSTEMS: As stated in the HPI. Denies any headaches, visual changes, blurred vision, double vision. Denies any melena, hematochezia, hematemesis and neurologically except for the weakness. Otherwise, has a sharp mind. PHYSICAL EXAMINATION: GENERAL: This is a very pleasant gentleman. VITAL SIGNS: Blood pressure 167/84, respiration 18, pulse 80, afebrile, 96% saturation. HEENT: The patient's head is slightly traumatic in the sense that there are some ecchymotic areas on the head. Eyes are PERRL. Mouth and throat: Normal. NECK: Unremarkable. LUNGS: Diminished, but clear. CARDIOVASCULAR: Regular sinus rhythm. ABDOMEN: Soft, nontender, no rebounding. There is apparent tenderness to the left rib cage where he has had multiple fractures. EXTREMITIES: No clubbing, cyanosis, no edema. Some musculoskeletal wasting. Some bruising noted to the knees and the arvizu, particularly the right lower leg has some abrasions. The patient otherwise seems to be resting fairly comfortably. NEUROLOGIC: Speech is fluent, spontaneous and appropriate. LABORATORY DATA: The patient's sodium and potassium 139 and 3.8, BUN and creatinine 25 and 1.4, alkaline phosphatase 144. BNP of 825. His albumin down to 2.9. Hemoglobin and hematocrit 14 and 43, white count 7, platelets good. Otherwise, the patient's UA was unremarkable. The patient's coags were unremarkable. IMPRESSION: Syncope, multiple falls, multiple rib fractures, generalized weakness, severe degenerative arthritis of the right knee. PLAN: The patient will be admitted for further evaluation of his weakness, syncope and make further evaluation on him as indicated. JHON FRAUSTO MD DR: TWYLA/alejandra JOB#: [id number] / [id number]
[2020-05-19 11:42] VITALS: BP 163/83
[2020-05-19 14:00] VITALS: BP 140/80
[2020-05-19 18:43] VITALS: BP 147/89
[2020-05-19] MEDS: MIRABEGRON 25 MG TAB.ER.24H PO SCH (21:01)
[2020-05-19] MEDS: ATORVASTATIN CALCIUM 20 MG TABLET PO SCH (21:01)
[2020-05-19] MEDS: LATANOPROST 0.005% OPHTH SOLUTION 2.5ML BOTTLE. OU SCH (21:01)
[2020-05-19 22:40] VITALS: BP 140/78
[2020-05-20 06:11] VITALS: BP 154/98
[2020-05-20] MEDS: ISOSORBIDE MONONITRATE ER 30 MG TAB.ER.24H PO SCH (07:31)
[2020-05-20] MEDS: ASPIRIN CHEWABLE 81 MG TABLET. PO SCH (07:31)
[2020-05-20] MEDS: DORZOLAMIDE 2% OPHTH SOLUTION 10ML BOTTLE. OD SCH (07:32)
[2020-05-20] MEDS: METOPROLOL SUCC 24HR ER 25 MG TAB.ER.24H. PO SCH (07:32)
[2020-05-20] MEDS: MECLIZINE 12.5 MG TABLET. PO SCH (07:32)
[2020-05-20] MEDS: PANTOPRAZOLE 40 MG TABLET. PO SCH (07:32)
[2020-05-20 11:00] VITALS: BP 126/73
[2020-05-20] MEDS ORDERED: BISACODYL 10 MG SUPP.RECT PR PRN (14:15)
[2020-05-20 15:05] VITALS: BP 128/83
[2020-05-20 20:03] VITALS: BP 172/92
[2020-05-20] MEDS: MIRABEGRON 25 MG TAB.ER.24H PO SCH (21:35)
[2020-05-20] MEDS: LATANOPROST 0.005% OPHTH SOLUTION 2.5ML BOTTLE. OU SCH (21:35)
[2020-05-20] MEDS: ATORVASTATIN CALCIUM 20 MG TABLET PO SCH (21:35)
--- NOTE | 2020-05-20 23:28 | PN ---
DATE: SUBJECTIVE: An 84-year-old male with syncope, falling, fractured ribs on the left, difficulty walking, extremely weak. The patient otherwise seems to be resting fairly comfortably. OBJECTIVE: VITAL SIGNS: Her blood pressure 172/92 (NC), respiratory rate 14, pulse 71, afebrile. GENERAL: The patient otherwise is alert, still very weak in his voice. LUNGS: Otherwise, the patient's lungs are diminished, but clear. CARDIOVASCULAR: Regular sinus rhythm, occasional dropped beat. ABDOMEN: Soft, extreme tenderness. EXTREMITIES: Weakness in right knee. Otherwise, the patient seems to be resting fairly comfortably and is receiving physical and occupational therapy. IMPRESSION: Syncope, multiple falls, fractures of multiple ribs, severe protein malnutrition, degenerative arthritis of the right knee. PLAN: Continue with PT, OT and hopefully ready for discharge. JHON FRAUSTO MD DR: TWYLA/alejandra JOB#: [id number] / [id number]
[2020-05-20 23:46] VITALS: BP 180/89
[2020-05-21 06:30] VITALS: BP 169/94
[2020-05-21] MEDS: PANTOPRAZOLE 40 MG TABLET. PO SCH (08:30)
[2020-05-21] MEDS: MECLIZINE 12.5 MG TABLET. PO SCH (08:31)
[2020-05-21] MEDS: ISOSORBIDE MONONITRATE ER 30 MG TAB.ER.24H PO SCH (08:31)
[2020-05-21 08:32] VITALS: BP 169/94
[2020-05-21] MEDS: DORZOLAMIDE 2% OPHTH SOLUTION 10ML BOTTLE. OD SCH (08:32)
[2020-05-21] MEDS: METOPROLOL SUCC 24HR ER 25 MG TAB.ER.24H. PO SCH (08:32)
[2020-05-21] MEDS ORDERED: ASPIRIN CHEWABLE 81 MG TABLET. PO SCH (09:00)
== END 2020-05-21 10:50 | disposition home or self-care (01) | DRG 73 ==
LOC: ER 15:03 → 1 SOUTH 16:32 → ER 16:55
PROVIDERS: ADMIT Family Medicine; ATTEND Family Medicine
DX: G90.8 Other disorders of autonomic nervous system (principal); E43 Unspecified severe protein-calorie malnutrition; S22.42XA Multiple fractures of ribs, left side, initial encounter for closed fracture; E78.00 Pure hypercholesterolemia, unspecified; G89.29 Other chronic pain; I10 Essential (primary) hypertension; K22.70 Barrett's esophagus without dysplasia; M17.11 Unilateral primary osteoarthritis, right knee; M48.02 Spinal stenosis, cervical region; R29.6 Repeated falls; S20.211A Contusion of right front wall of thorax, initial encounter; W18.30XA Fall on same level, unspecified, initial encounter; F41.9 Anxiety disorder, unspecified; K21.9 Gastro-esophageal reflux disease without esophagitis; Y93.89 Activity, other specified; Y99.8 Other external cause status; Y92.009 Unspecified place in unspecified non-institutional (private) residence as the place of occurrence of the external cause; Z85.828 Personal history of other malignant neoplasm of skin; Z87.891 Personal history of nicotine dependence; Z95.5 Presence of coronary angioplasty implant and graft; Z88.1 Allergy status to other antibiotic agents; Z88.8 Allergy status to other drugs, medicaments and biological substances; Z68.22 Body mass index [BMI] 22.0-22.9, adult
CPT/HCPCS: 36415; 70450; 71260; 72125; 73562; 80053; 81001; 82306; 82553; 82607; 83880; 84443; 84484; 85025; 85610; 85730; 93005; 96360; G0238; J8597; Q9967; 97530; 99285-25; J7030

== ENCOUNTER 2020-07-12 13:22 | Inpatient (IN) | payer MEDICARE ==
[~2020-07-12] VITALS: Ht 180.3 cm; Wt 70.2 kg
[~2020-07-12 13:22] MED LIST changes: +PREVAGEN PO
[2020-07-12 16:15] VITALS: BP 132/82
[2020-07-12] MEDS ORDERED: NITROGLYCERIN SUBLINGUAL 0.4 MG BOTTLE OF 25. SL PRN (16:30)
[2020-07-12] MEDS ORDERED: ZOLPIDEM 5 MG TABLET. PO PRN (17:00)
[2020-07-12] MEDS ORDERED: IPRA15SP NS (18:39)
[2020-07-12] MEDS ORDERED: BRIM5DRO3 RIGHTEYE (18:39)
[2020-07-12] MEDS ORDERED: TRAM50TA PO (18:57)
[2020-07-12] MEDS ORDERED: SERT25TA PO (18:57)
[2020-07-12] MEDS ORDERED: ISOS30TA19 PO (18:57)
[2020-07-12] MEDS ORDERED: NETA2.5D3 OP (18:57)
[2020-07-12] MEDS ORDERED: MULT-245 PO (18:57)
[2020-07-12] MEDS ORDERED: TEMA15CA6 PO (18:57)
[2020-07-12] MEDS ORDERED: TAFL1DRO LEFTEYE (18:57)
[2020-07-12] MEDS ORDERED: RIVA10TA PO (18:57)
--- NOTE | 2020-07-12 19:13 | NUR ---
Swing Bed Admission Patient Handbook for [facility] given to patient. Nursing Problem: Right Knee Replacement. PT/OT eval and tx Cognitive/Behavioral: Patient alert and oriented x4 on admission. Pleasant, calm, and cooperative with staff. Pain: Patient denies pain at time of admission. Respiratory Status: Lungs clear throughout. Patient RA. SpO2 97%. No cough or SOA noted. Skin: Surgical incision to right knee. Dressing is clean dry and intact. Not to be removed until ortho follow up appointment. Bowel/Bladder Continence: Patient states he is continent of B&B but does have accidents on occasion. Brief in place. Patient states last BM 07/10. ADL Functional Status: Patients ambulatory and gait abilities not assessed at this time. Fall(s) prior to admission? no Admitted from? [facility].
[2020-07-12 19:27] LABS: BASO # 0.1 x10^3/uL (0.0-0.2); BASO % 1 % (0-3); EOS # 0.1 x10^3/uL (0.0-0.7); EOS % 1 % (0-3); HEMATOCRIT 34.2 % (39.0-53.0); HEMOGLOBIN 11.1 g/dL (13.0-17.5); LYMPH # 0.7 x10^3/uL (1.0-4.8); LYMPH % 5 % (24-48); MEAN CORPUSCULAR HEMOGLOBIN 30 pg (25-35); MEAN CORPUSCULAR HGB CONC 33 g/dL (31-37); MEAN CORPUSCULAR VOLUME 90 fL (79-100); MONO # 1.7 x10^3/uL (0.0-1.1); MONO % 12 % (0-9); NEUT # 11.4 x10^3uL (1.8-7.7); NEUT % 81 % (31-73); PLATELET COUNT 434 x10^3/uL (140-400); RED BLOOD COUNT 3.78 x10^6/uL (4.30-5.70); RED CELL DISTRIBUTION WIDTH 15.9 % (11.5-14.5)
[2020-07-12] MEDS: ATORVASTATIN CALCIUM 20 MG TABLET PO SCH (20:29)
[2020-07-12] MEDS ORDERED: SERTRALINE 25 MG TABLET. PO SCH (21:00)
[2020-07-12] MEDS ORDERED: TAFLUPROST EACHEYE SCH (21:00)
[2020-07-12] MEDS ORDERED: traMADol 50 MG TABLET PO PRN (21:30)
[2020-07-12] MEDS ORDERED: IPRATROPIUM BROMIDE 0.06% NASAL SPRAY 15ML BOTTLE NS PRN (21:30)
[2020-07-12] MEDS: TEMAZEPAM 15 MG CAPSULE PO SCH (22:45)
--- NOTE | 2020-07-13 00:38 | NUR ---
Swing Bed Nursing Note Patient Handbook for [facility] given to patient. Nursing Problem: RT Knee Replacement Cognitive/Behavioral: Alert and oriented, pleasant. use call light for assist Pain: Denies at this time Respiratory Status: Lungs CLEAR. RA Skin: Redness to groin R/T incontinence, surgical incision to RT knee. Bowel/Bladder Continence: Incontinent of urine ADL Functional Status: x1 asst with Walker for ambulation
[2020-07-13] MEDS ORDERED: TEMAZEPAM 15 MG CAPSULE PO PRN ×2 (03:30→03:45)
[2020-07-13] MEDS ORDERED: ISOS10TA2 PO (03:36)
[2020-07-13] MEDS ORDERED: TEMA15CA6 PO (03:36)
[2020-07-13 08:10] LABS: CALCIUM 8.2 mg/dL (8.5-10.1); CREATININE 1.5 mg/dL (0.7-1.3); GFR 44.4; POTASSIUM 3.9 mmol/L (3.5-5.1)
[2020-07-13] MEDS ORDERED: NON FORMULARY ITEM (Brimonidine Tartrate (Alphagan P) 1 DROP) RIGHTEYE SCH (09:00)
[2020-07-13] MEDS: NETARSUDIL MESYLAT OP SCH (09:00)
[2020-07-13] MEDS ORDERED: SERTRALINE 25 MG TABLET. PO SCH (09:00)
[2020-07-13] MEDS: [UNRECOGNIZED DRUG - OTHER] OP SCH (09:00)
[2020-07-13] MEDS: LATANOPROST OP SCH (09:00)
[2020-07-13] MEDS ORDERED: ISOSORBIDE MONONITRATE ER 30 MG TAB.ER.24H PO SCH ×2 (09:00)
[2020-07-13 09:42] VITALS: BP 112/68
[2020-07-13] MEDS: ASPIRIN CHEWABLE 81 MG TABLET. PO SCH (10:14)
[2020-07-13] MEDS: RIVAROXABAN 10 MG TABLET. PO SCH (10:14)
[2020-07-13] MEDS: MULTIVITAMIN with MINERAL TABLET. PO SCH (10:14)
[2020-07-13] MEDS: MECLIZINE 12.5 MG TABLET. PO SCH (10:15)
[2020-07-13] MEDS: OXYBUTYNIN CHLORIDE 5 MG TABLET PO SCH ×3 (10:15→21:35)
[2020-07-13] MEDS: PANTOPRAZOLE 40 MG TABLET. PO SCH (10:15)
[2020-07-13] MEDS: METOPROLOL SUCC 24HR ER 25 MG TAB.ER.24H. PO SCH (10:15)
[2020-07-13] MEDS: DORZOLAMIDE 2% OPHTH SOLUTION 10ML BOTTLE. OD SCH (10:16)
[2020-07-13] MEDS: SERTRALINE 50 MG TABLET. PO SCH (11:58)
[2020-07-13] MEDS: buPROPion SR 150 MG TABLET.SA PO SCH ×2 (11:58→16:48)
--- NOTE | 2020-07-13 12:54 | NUR ---
Swing Bed Nursing Note Patient Handbook for [facility] given to patient. Nursing Problem: RT Knee Replacement Cognitive/Behavioral: A&O, forgetful at times Pain: denied pain on assessment, has prn medication if needed Respiratory Status: lungs clear, RA, however, pt was feeling weak this morning, oxygen sat reading 89% RA fingers are cold, pt placed on 1 liter of oxygen for comfort and reassessed at 98% after warming up, pt states he feels better this afternoon. Skin: Redness to groin R/T incontinence, surgical incision to RT knee, bandage CDI. Bowel/Bladder Continence: Incontinent of urine ADL Functional Status: pt requires x1 assist at least, x2 assist if available when up ambulated with walker and gait belt, pt is very unsteady, afraid of falling which makes him jumpy, leans back at times and has short shuffling gait. pt requires extensive assistance with toileting, unable to wipe himself, unable to pull his pants up and down without assistance. pt is independent with his meals, set up only. pt stayed up in chair most of the morning and early afternoon, request to lay down after lunch for a short time. will continue to monitor. trang gary.
[2020-07-13] MEDS: ISOSORBIDE DINITRATE 10 MG TABLET. PO SCH (18:13)
[2020-07-13 20:18] VITALS: BP 136/74
[2020-07-13] MEDS ORDERED: PREVAGEN PO SCH (21:00)
[2020-07-13] MEDS: TAFLUPROST LEFTEYE SCH (21:00)
[2020-07-13] MEDS: ATORVASTATIN CALCIUM 20 MG TABLET PO SCH (21:34)
[2020-07-13] MEDS: TEMAZEPAM 15 MG CAPSULE PO SCH (21:35)
--- NOTE | 2020-07-13 23:56 | NUR ---
Swing Bed Nursing Note Patient Handbook for [facility] given to patient. Nursing Problem: RT Knee Replacement Cognitive/Behavioral: A&O, forgetful at times Pain: denied pain on assessment Respiratory Status: lung are clear, pt on RA, SOA w/ activity Skin: Redness to groin R/T incontinence, surgical incision to RT knee, bandage CDI. Bowel/Bladder Continence: Incontinent of urine ADL Functional Status: pt requires x1 assist at least, x2 assist if available when up ambulated with walker and gait belt, pt is very unsteady, afraid of falling which makes him jumpy, leans back at times and has short shuffling gait. pt requires extensive assistance with toileting, unable to wipe himself, unable to pull his pants up and down without assistance. pt is independent with his meals, set up only. pt. required x2 assist w/ walker and gait belt to transfer from chair to bed this evening. pt appeared to become anxious while transferring in fear "He may fall" . pt. is now resting comfortably in bed. will continue to monitor.
[2020-07-14 07:05] VITALS: BP 119/69
[2020-07-14] MEDS: OXYBUTYNIN CHLORIDE 5 MG TABLET PO SCH ×3 (07:21→20:30)
[2020-07-14] MEDS: buPROPion SR 150 MG TABLET.SA PO SCH ×2 (07:21→17:14)
[2020-07-14] MEDS: PANTOPRAZOLE 40 MG TABLET. PO SCH (07:21)
[2020-07-14] MEDS: ASPIRIN CHEWABLE 81 MG TABLET. PO SCH (07:21)
[2020-07-14] MEDS: MECLIZINE 12.5 MG TABLET. PO SCH (07:21)
[2020-07-14] MEDS: RIVAROXABAN 10 MG TABLET. PO SCH (07:22)
[2020-07-14] MEDS: SERTRALINE 50 MG TABLET. PO SCH (07:22)
[2020-07-14] MEDS: MULTIVITAMIN with MINERAL TABLET. PO SCH (07:22)
[2020-07-14] MEDS: METOPROLOL SUCC 24HR ER 25 MG TAB.ER.24H. PO SCH (07:22)
[2020-07-14] MEDS: [UNRECOGNIZED DRUG - OTHER] OP SCH (07:24)
[2020-07-14] MEDS: NETARSUDIL MESYLAT OP SCH (07:24)
[2020-07-14] MEDS: LATANOPROST OP SCH (07:24)
[2020-07-14] MEDS: DORZOLAMIDE 2% OPHTH SOLUTION 10ML BOTTLE. OD SCH (07:24)
[2020-07-14] MEDS: ISOSORBIDE DINITRATE 10 MG TABLET. PO SCH (17:14)
[2020-07-14 19:23] VITALS: BP 119/69
[2020-07-14] MEDS: TEMAZEPAM 15 MG CAPSULE PO SCH (20:30)
[2020-07-14] MEDS: ATORVASTATIN CALCIUM 20 MG TABLET PO SCH (20:30)
[2020-07-14] MEDS: TAFLUPROST LEFTEYE SCH (20:31)
--- NOTE | 2020-07-14 23:16 | NUR ---
Swing Bed Nursing Note Patient Handbook for [facility] given to patient. Nursing Problem: RT Knee Replacement Cognitive/Behavioral: A&O, pt forgetful of place at times. Pain: denied pain on assessment Respiratory Status: lung are clear, pt on RA, SOA w/ activity Skin: Redness to groin R/T incontinence, surgical incision to RT knee open to air. Compression stocking are to be worn on RLE during day and removed HS Bowel/Bladder Continence: Incontinent of urine ADL Functional Status: pt requires x2 assist when up ambulated with walker and gait belt, pt is very unsteady, afraid of falling which makes him jumpy, leans back at times and has short shuffling gait. pt. was able to help pull up brief when toileting. pt. took off shoes before bed w/o assistance. pt seems to follow demands well when assisting w/ ambulation.
[2020-07-15 08:00] VITALS: BP 132/72
[2020-07-15] MEDS: buPROPion SR 150 MG TABLET.SA PO SCH ×2 (08:41→15:33)
[2020-07-15] MEDS: PANTOPRAZOLE 40 MG TABLET. PO SCH (08:42)
[2020-07-15] MEDS: MULTIVITAMIN with MINERAL TABLET. PO SCH (08:42)
[2020-07-15] MEDS: ASPIRIN CHEWABLE 81 MG TABLET. PO SCH (08:42)
[2020-07-15] MEDS: MECLIZINE 12.5 MG TABLET. PO SCH (08:42)
[2020-07-15] MEDS: RIVAROXABAN 10 MG TABLET. PO SCH (08:42)
[2020-07-15] MEDS: OXYBUTYNIN CHLORIDE 5 MG TABLET PO SCH ×3 (08:42→20:16)
[2020-07-15] MEDS: SERTRALINE 50 MG TABLET. PO SCH (08:42)
[2020-07-15] MEDS: METOPROLOL SUCC 24HR ER 25 MG TAB.ER.24H. PO SCH (08:43)
[2020-07-15] MEDS: DORZOLAMIDE 2% OPHTH SOLUTION 10ML BOTTLE. OD SCH (08:43)
[2020-07-15] MEDS: NETARSUDIL MESYLAT OP SCH (09:00)
[2020-07-15] MEDS: LATANOPROST OP SCH (09:00)
[2020-07-15] MEDS: [UNRECOGNIZED DRUG - OTHER] OP SCH (09:00)
[2020-07-15 13:53] LABS: BASO % 0 % (0-3); EOS # 0.1 x10^3/uL (0.0-0.7); EOS % 1 % (0-3); HEMATOCRIT 31.9 % (39.0-53.0); HEMOGLOBIN 10.4 g/dL (13.0-17.5); LYMPH # 0.6 x10^3/uL (1.0-4.8); LYMPH % 5 % (24-48); MEAN CORPUSCULAR HEMOGLOBIN 30 pg (25-35); MEAN CORPUSCULAR HGB CONC 33 g/dL (31-37); MEAN CORPUSCULAR VOLUME 91 fL (79-100); MONO # 1.5 x10^3/uL (0.0-1.1); MONO % 14 % (0-9); NEUT # 8.5 x10^3uL (1.8-7.7); NEUT % 79 % (31-73); PLATELET COUNT 389 x10^3/uL (140-400); RED CELL DISTRIBUTION WIDTH 15.9 % (11.5-14.5); WHITE BLOOD COUNT 10.7 x10^3/uL (4.0-11.0)
[2020-07-15] MEDS: ISOSORBIDE DINITRATE 10 MG TABLET. PO SCH (17:58)
[2020-07-15 19:47] VITALS: BP 118/70
[2020-07-15] MEDS ORDERED: BISACODYL TAB 5 MG TABLET.DR. PO ONE (20:00)
[2020-07-15] MEDS: TEMAZEPAM 15 MG CAPSULE PO SCH (20:16)
[2020-07-15] MEDS: ATORVASTATIN CALCIUM 20 MG TABLET PO SCH (20:16)
[2020-07-15] MEDS: TAFLUPROST LEFTEYE SCH (20:17)
--- NOTE | 2020-07-15 23:37 | NUR ---
Swing Bed Nursing Note Patient Handbook for [facility] given to patient. Nursing Problem: RT Knee Replacement Cognitive/Behavioral: A&O, forgetful at times Pain: denied pain on assessment Respiratory Status: lung are clear, pt on RA, SOA w/ activity Skin: Redness to groin R/T incontinence. Surgical incision to right leg open to air Bowel/Bladder Continence: Incontinent of urine ADL Functional Status: Pt requires x1-x2 assist when up ambulating with walker and gait belt. Pt is very unsteady, afraid of falling which makes him jumpy and lean back at times. Pt requires extensive assistance with toileting, unable to wipe himself, unable to pull his pants up and down without assistance. Pt is independent with his meals, set up only.
[2020-07-16] MEDS: PANTOPRAZOLE 40 MG TABLET. PO SCH (07:28)
[2020-07-16] MEDS: MECLIZINE 12.5 MG TABLET. PO SCH (07:28)
[2020-07-16] MEDS: SERTRALINE 50 MG TABLET. PO SCH (07:28)
[2020-07-16] MEDS: RIVAROXABAN 10 MG TABLET. PO SCH (07:28)
[2020-07-16] MEDS: buPROPion SR 150 MG TABLET.SA PO SCH ×2 (07:28→16:25)
[2020-07-16] MEDS: OXYBUTYNIN CHLORIDE 5 MG TABLET PO SCH ×3 (07:28→21:31)
[2020-07-16] MEDS: MULTIVITAMIN with MINERAL TABLET. PO SCH (07:28)
[2020-07-16] MEDS: ASPIRIN CHEWABLE 81 MG TABLET. PO SCH (07:28)
[2020-07-16] MEDS: METOPROLOL SUCC 24HR ER 25 MG TAB.ER.24H. PO SCH (07:29)
[2020-07-16] MEDS: DORZOLAMIDE 2% OPHTH SOLUTION 10ML BOTTLE. OD SCH (07:32)
[2020-07-16] MEDS: NETARSUDIL MESYLAT OP SCH (07:34)
[2020-07-16] MEDS: LATANOPROST OP SCH (07:34)
[2020-07-16] MEDS: [UNRECOGNIZED DRUG - OTHER] OP SCH (07:34)
[2020-07-16 07:46] VITALS: BP 143/84
[2020-07-16] MEDS: BISACODYL TAB 5 MG TABLET.DR. PO PRN (09:09)
[2020-07-16] MEDS: DOCUSATE SODIUM 100 MG CAPSULE PO SCH (09:09)
[2020-07-16] MEDS: ISOSORBIDE DINITRATE 10 MG TABLET. PO SCH (16:25)
[2020-07-16] MEDS ORDERED: BISACODYL TAB 5 MG TABLET.DR. PO ONE (18:30)
[2020-07-16 20:25] VITALS: BP 128/73
[2020-07-16] MEDS: TAFLUPROST LEFTEYE SCH (21:00)
[2020-07-16] MEDS: ATORVASTATIN CALCIUM 20 MG TABLET PO SCH (21:31)
[2020-07-16] MEDS: TEMAZEPAM 15 MG CAPSULE PO SCH (21:31)
--- NOTE | 2020-07-16 23:12 | NUR ---
Swing Bed Nursing Note Patient Handbook for [facility] given to patient. Nursing Problem: RT Knee Replacement Cognitive/Behavioral: A&O, forgetful at times. Pt restless this evening wanting to call , attempted to call twice with no answer. Pain: denied pain on assessment Respiratory Status: lung are clear, pt on RA, SOA w/ activity Skin: Redness to groin R/T incontinence. Surgical incision to right leg open to air Bowel/Bladder Continence: Incontinent of urine ADL Functional Status: While transferring pt to new room pt required x4 assist. Pt would not straighten his legs and when asked to stand up straihjt pt leaning back against staff. Pt is very unsteady, afraid of falling. Pt incontinent of urine this HS required x2 assist to clean and change pt into pajamas. Pt is independent with his meals, set up only.
--- NOTE | 2020-07-16 23:46 | PN ---
DATE: SUBJECTIVE: An 84-year-old male who was initially brought in after a knee surgery on his right knee with knee replacement ____. The patient ____ came over here for continued rehab. He has continued to receive rehab. He is very weak, difficulty standing and moving along. He seems to be somewhat cooperative with the nursing staff, PT, OT. OBJECTIVE: VITAL SIGNS: Blood pressure 143/84, respiratory rate 16, pulse 87, afebrile. GENERAL: The patient is alert, still has some memory loss, is having short-term memory deficits and sometimes speaks inappropriately. Other than that, the patient seems to be obviously very congenial individual. LUNGS: Diminished, but clear. CARDIOVASCULAR: Stable. EXTREMITIES: The right knee seems to be healing up well, but overall decreased muscle mass atrophy and marked weakness in his legs and difficulty standing and ____. IMPRESSION: Postop from right knee replacement and continue to monitor the patient accordingly. Continue with PT and OT. Also, he has constipation and working on that as well. JHON FRAUSTO MD DR: TWYLA/alejandra JOB#: [id number] / [id number]
[2020-07-17] MEDS: MULTIVITAMIN with MINERAL TABLET. PO SCH (08:51)
[2020-07-17] MEDS: OXYBUTYNIN CHLORIDE 5 MG TABLET PO SCH ×3 (08:51→20:30)
[2020-07-17] MEDS: ASPIRIN CHEWABLE 81 MG TABLET. PO SCH (08:51)
[2020-07-17] MEDS: buPROPion SR 150 MG TABLET.SA PO SCH ×2 (08:51→17:30)
[2020-07-17] MEDS: PANTOPRAZOLE 40 MG TABLET. PO SCH (08:51)
[2020-07-17] MEDS: MECLIZINE 12.5 MG TABLET. PO SCH (08:51)
[2020-07-17] MEDS: METOPROLOL SUCC 24HR ER 25 MG TAB.ER.24H. PO SCH (08:51)
[2020-07-17] MEDS: DOCUSATE SODIUM 100 MG CAPSULE PO SCH (08:51)
[2020-07-17] MEDS: SERTRALINE 50 MG TABLET. PO SCH (08:51)
[2020-07-17] MEDS: RIVAROXABAN 10 MG TABLET. PO SCH (08:52)
[2020-07-17] MEDS: LATANOPROST OP SCH (09:00)
[2020-07-17] MEDS: NETARSUDIL MESYLAT OP SCH (09:00)
[2020-07-17] MEDS: [UNRECOGNIZED DRUG - OTHER] OP SCH (09:00)
[2020-07-17] MEDS: DORZOLAMIDE 2% OPHTH SOLUTION 10ML BOTTLE. OD SCH (09:22)
[2020-07-17 10:44] VITALS: BP 153/91
[2020-07-17] MEDS ORDERED: MAALOX:LIDO:APAP 6:2:1 ORAL SUSPENSION 180 ML BOTTLE. PO PRN (13:30)
[2020-07-17] MEDS: ISOSORBIDE DINITRATE 10 MG TABLET. PO SCH (17:29)
[2020-07-17] MEDS: TEMAZEPAM 15 MG CAPSULE PO SCH (20:29)
[2020-07-17] MEDS: ATORVASTATIN CALCIUM 20 MG TABLET PO SCH (20:30)
[2020-07-17] MEDS: TAFLUPROST LEFTEYE SCH (20:33)
[2020-07-17 20:45] VITALS: BP 118/67
--- NOTE | 2020-07-18 04:29 | NUR ---
Swing Bed Nursing Note Patient Handbook for [facility] given to patient. Nursing Problem: PT/OT post Right Knee Replacement Cognitive/Behavioral: A&O, forgetful at times Pain: Patient denied pain on assessment Respiratory Status: lung are clear, patient on RA, SOA w/ activity Skin: Redness to groin R/T incontinence, surgical incision to RT knee, open to air Bowel/Bladder Continence: Incontinent of urine ADL Functional Status: Patient requires x2 assist at least with walker and gait belt. Patient is very unsteady, afraid of falling which makes him jumpy, leans back at times and has short shuffling gait. Patient requires extensive assistance with toileting, unable to wipe himself, unable to pull his pants up and down without assistance.
[2020-07-18] MEDS: NETARSUDIL MESYLAT OP SCH (09:00)
[2020-07-18] MEDS: LATANOPROST OP SCH (09:00)
[2020-07-18] MEDS: [UNRECOGNIZED DRUG - OTHER] OP SCH (09:00)
[2020-07-18] MEDS: OXYBUTYNIN CHLORIDE 5 MG TABLET PO SCH ×3 (09:10→20:09)
[2020-07-18] MEDS: buPROPion SR 150 MG TABLET.SA PO SCH ×2 (09:10→16:28)
[2020-07-18] MEDS: ASPIRIN CHEWABLE 81 MG TABLET. PO SCH (09:10)
[2020-07-18] MEDS: DOCUSATE SODIUM 100 MG CAPSULE PO SCH (09:10)
[2020-07-18] MEDS: MULTIVITAMIN with MINERAL TABLET. PO SCH (09:10)
[2020-07-18] MEDS: RIVAROXABAN 10 MG TABLET. PO SCH (09:11)
[2020-07-18] MEDS: PANTOPRAZOLE 40 MG TABLET. PO SCH (09:11)
[2020-07-18] MEDS: MECLIZINE 12.5 MG TABLET. PO SCH (09:11)
[2020-07-18] MEDS: DORZOLAMIDE 2% OPHTH SOLUTION 10ML BOTTLE. OD SCH (09:11)
[2020-07-18] MEDS: SERTRALINE 50 MG TABLET. PO SCH (09:11)
[2020-07-18] MEDS: METOPROLOL SUCC 24HR ER 25 MG TAB.ER.24H. PO SCH (09:11)
[2020-07-18 11:17] VITALS: BP 134/85
[2020-07-18] MEDS: ISOSORBIDE DINITRATE 10 MG TABLET. PO SCH (18:00)
--- NOTE | 2020-07-18 19:30 | NUR ---
CPM on at 1930, off at 2130 Addendum: 07/18/20 at 2319 by BOBBY BARRERA RN Amended: Links added.
[2020-07-18 19:56] VITALS: BP 123/71
[2020-07-18] MEDS: TEMAZEPAM 15 MG CAPSULE PO SCH (20:08)
[2020-07-18] MEDS: ATORVASTATIN CALCIUM 20 MG TABLET PO SCH (20:09)
[2020-07-18] MEDS: TAFLUPROST LEFTEYE SCH (20:09)
--- NOTE | 2020-07-19 05:45 | NUR ---
Swing Bed Nursing Note: Patient Handbook for [facility] given to patient. Nursing Problem: PT/OT post Right Knee Replacement Cognitive/Behavioral: A&O, forgetful at times Pain: Patient denied pain on assessment Respiratory Status: lung are clear, patient on RA, SOA w/ activity Skin: Redness to groin R/T incontinence, surgical incision to RT knee, open to air Bowel/Bladder Continence: Incontinent of urine, last BM 07/17/20 ADL Functional Status: Patient requires x2 assist at least with walker and gait belt. Patient is very unsteady, afraid of falling which makes him jumpy, leans back at times and has short shuffling gait. Patient requires extensive assistance with toileting, unable to wipe himself, unable to pull his pants up and down without assistance, pt unwilling to put full weight on right leg and won't bend knee when attempting to ambulate
[2020-07-19] MEDS: ASPIRIN CHEWABLE 81 MG TABLET. PO SCH (08:21)
[2020-07-19] MEDS: PANTOPRAZOLE 40 MG TABLET. PO SCH (08:21)
[2020-07-19] MEDS: RIVAROXABAN 10 MG TABLET. PO SCH (08:21)
[2020-07-19] MEDS: MECLIZINE 12.5 MG TABLET. PO SCH (08:21)
[2020-07-19] MEDS: OXYBUTYNIN CHLORIDE 5 MG TABLET PO SCH ×3 (08:22→20:58)
[2020-07-19] MEDS: DOCUSATE SODIUM 100 MG CAPSULE PO SCH (08:22)
[2020-07-19] MEDS: MULTIVITAMIN with MINERAL TABLET. PO SCH (08:22)
[2020-07-19] MEDS: SERTRALINE 50 MG TABLET. PO SCH (08:22)
[2020-07-19] MEDS: buPROPion SR 150 MG TABLET.SA PO SCH ×2 (08:22→16:10)
[2020-07-19] MEDS: METOPROLOL SUCC 24HR ER 25 MG TAB.ER.24H. PO SCH (08:22)
[2020-07-19] MEDS: DORZOLAMIDE 2% OPHTH SOLUTION 10ML BOTTLE. OD SCH (08:23)
[2020-07-19] MEDS: NETARSUDIL MESYLAT OP SCH (08:31)
[2020-07-19] MEDS: [UNRECOGNIZED DRUG - OTHER] OP SCH (08:31)
[2020-07-19] MEDS: LATANOPROST OP SCH (08:31)
[2020-07-19 11:03] VITALS: BP 107/70
--- NOTE | 2020-07-19 12:26 | PN ---
DATE: SUBJECTIVE: The patient has been having hoarseness. He is recovering of course from his knee repair and replacement. He is making fair progress there, but he is extremely weak and has poor balance. PT, OT is working with him on that. In any case, the patient continues to make good progress overall and will continue to be monitored on that situation. OBJECTIVE: VITAL SIGNS: Blood pressure of 120/70, respiratory rate 20, pulse 75, afebrile. GENERAL: The patient is alert. He is hoarse. HEENT: On exam of his throat, marked redness, irritation, some appears to be some white matter on the tongue and the back of the throat could be a yeast infection. We will go ahead and start nystatin swish and swallow and see if that does not help him accordingly. LUNGS: Otherwise, his lungs are diminished, but clear. CARDIOVASCULAR: Stable. ABDOMEN: Soft. EXTREMITIES: Patient's leg healing well. IMPRESSION: Postop for knee replacement, oral moniliasis, weakness, lack of good balance system. PLAN: Plan to continue to monitor him accordingly and we will continue to monitor and continue with PT, OT. JHON FRAUSTO MD DR: TWYLA/alejandra JOB#: [id number] / [id number]
[2020-07-19] MEDS: NYSTATIN 100,000 UNITS/ML ORAL SUSPENSION 60ML BOTTLE. SWSW SCH ×3 (14:21→20:58)
--- NOTE | 2020-07-19 15:05 | NUR ---
SWING BED DOCUMENTATION Patient Handbook for [facility] given to patient. Nursing Problem: RT Knee Replacement Cognitive/Behavioral: A&O, forgetful at times. calm/cooperative. pt attempt several times to call and can be impulsive at times today. Pain: denied pain on assessment Respiratory Status: lung are clear, pt on RA Skin: Redness to groin R/T incontinence, surgical incision to RT knee, open to air. cream applied to groin. Bowel/Bladder Continence: Incontinent of urine today, did call for urinal usage. ADL Functional Status: Pt in bed this am upon assessment and medication administration. Pt takes meds whole. Pt was found to be incontinent and needed changed this am, was x1 assist. Pt requires x2 assist with walker and a gait belt with pivoting and transfers. Pt having difficult time putting weight on right knee due to fear of falling, pt denies pain. Pt independent with meals. Pt requires x1 Assist with pulling up and down pants. Pt sat up in chair for most of the morning and early afternoon. Will continue to monitor. ESTEBAN Adair
[2020-07-19] MEDS: ISOSORBIDE DINITRATE 10 MG TABLET. PO SCH (18:06)
[2020-07-19 19:56] VITALS: BP 141/76
--- NOTE | 2020-07-19 20:00 | NUR ---
NURSE WENT IN TO PT ROOM TO GET 2000 VITALS. WHEN NURSE ENTERED THE ROOM PT WAS ON THE FLOOR UNDERNEATH HIS WHEELCHAIR. PT STATED HE HAD FALLEN TO THE FLOOR BECAUSE HE SLIPPED WHEN TRYING TO BOOST HIMSELF UP IN THE CHAIR. PT WAS ALERT AND ORIENTED TIMES 4 WHEN ASKED ORIENTATIONS QUESTIONS BY NURSE. PT STATED HE HAD NO PAIN AFTER THE FALL. PT NEEDED X2 ASSIST TO GET OFF THE FLOOR AND IN BED. PT IS RESTING IN BED COMFORTABLY. WILL CONTINUE TO MONITOR. NURSE CALLED [facility] HOME PHONE AND WORK PHONE TO NOTIFY OF FALL. THERE WAS NO ANSWER.
[2020-07-19] MEDS: TAFLUPROST LEFTEYE SCH (20:56)
[2020-07-19] MEDS: ATORVASTATIN CALCIUM 20 MG TABLET PO SCH (20:58)
[2020-07-19] MEDS: TEMAZEPAM 15 MG CAPSULE PO SCH (20:59)
[2020-07-19 22:52] VITALS: BP 113/64
--- NOTE | 2020-07-20 06:22 | NUR ---
notified dr of pts fall. dr had no concerns at the time and no orders given.
[2020-07-20 07:21] VITALS: BP 154/72
[2020-07-20] MEDS: ASPIRIN CHEWABLE 81 MG TABLET. PO SCH (08:12)
[2020-07-20] MEDS: DOCUSATE SODIUM 100 MG CAPSULE PO SCH (08:12)
[2020-07-20] MEDS: MULTIVITAMIN with MINERAL TABLET. PO SCH (08:12)
[2020-07-20] MEDS: SERTRALINE 50 MG TABLET. PO SCH (08:12)
[2020-07-20] MEDS: METOPROLOL SUCC 24HR ER 25 MG TAB.ER.24H. PO SCH (08:12)
[2020-07-20] MEDS: buPROPion SR 150 MG TABLET.SA PO SCH ×2 (08:12→17:14)
[2020-07-20] MEDS: PANTOPRAZOLE 40 MG TABLET. PO SCH (08:12)
[2020-07-20] MEDS: DORZOLAMIDE 2% OPHTH SOLUTION 10ML BOTTLE. OD SCH (08:12)
[2020-07-20] MEDS: NYSTATIN 100,000 UNITS/ML ORAL SUSPENSION 60ML BOTTLE. SWSW SCH ×4 (08:13→20:05)
[2020-07-20] MEDS: OXYBUTYNIN CHLORIDE 5 MG TABLET PO SCH ×3 (08:13→20:05)
[2020-07-20] MEDS: MECLIZINE 12.5 MG TABLET. PO SCH (08:13)
[2020-07-20] MEDS: RIVAROXABAN 10 MG TABLET. PO SCH (08:13)
[2020-07-20] MEDS: LATANOPROST OP SCH (08:17)
[2020-07-20] MEDS: [UNRECOGNIZED DRUG - OTHER] OP SCH (08:17)
[2020-07-20] MEDS: NETARSUDIL MESYLAT OP SCH (08:17)
--- NOTE | 2020-07-20 15:51 | NUR ---
SWING BED DOCUMENTATION Patient Handbook for [facility] given to patient. Nursing Problem: RT Knee Replacement Cognitive/Behavioral: A&O this am upon assessment, calm, cooperative. Pain: denies pain Respiratory Status: CTA, RA Skin: Redness to groin R/T incontinence and/or brief irritation, surgical incision to RT knee, open to air. cream applied to groin. Bowel/Bladder Continence: Incontinent of urine today, was [id number] to bedside commode, however, was not able to go once on commode. ADL Functional Status: pt required x2 assist with sit to stand to get to shower chair this am. pt is very weak this am, unable to stand straight up, leans back. pt was x1 assist in the shower, unable to wash himself in the shower other than his abd and lap, required extensive assistance with washign back, legs, and buttocks. pt was able to take the towel and dry his face, arms, and hair with a towel. pt was independent with brushing his teeth when wheeled up to the sink. pt is independent with meals. plan to meet with team and tomorrow for further plan of care. ESTEBAN gary
[2020-07-20] MEDS: ISOSORBIDE DINITRATE 10 MG TABLET. PO SCH (17:14)
[2020-07-20] MEDS: TAFLUPROST LEFTEYE SCH (19:46)
[2020-07-20 19:57] VITALS: BP 132/74
[2020-07-20] MEDS: ATORVASTATIN CALCIUM 20 MG TABLET PO SCH (20:05)
[2020-07-20] MEDS: TEMAZEPAM 15 MG CAPSULE PO SCH (20:05)
--- NOTE | 2020-07-21 06:30 | NUR ---
PT noted to be incontinent. Bed alarm sounded. PT noted to be at foot of bed trying to slide to floor. When asked what he was doing, he said he was going to the bathroom. PT unable to stand unassisted. PT unable to stand with x1 assistance or x2 assistance. PT very impatient and multiple times refused to use urinal. Unable to leave PT to get [id number] for safety. Finally convinced PT to use urinal. PT changed. Bedding changed. PT used urinal once more through the night. PT did not alert this time either, bed alarmed again.
[2020-07-21 07:41] VITALS: BP 158/80
[2020-07-21] MEDS: RIVAROXABAN 10 MG TABLET. PO SCH (08:19)
[2020-07-21] MEDS: MULTIVITAMIN with MINERAL TABLET. PO SCH (08:19)
[2020-07-21] MEDS: METOPROLOL SUCC 24HR ER 25 MG TAB.ER.24H. PO SCH (08:20)
[2020-07-21] MEDS: ASPIRIN CHEWABLE 81 MG TABLET. PO SCH (08:20)
[2020-07-21] MEDS: MECLIZINE 12.5 MG TABLET. PO SCH (08:20)
[2020-07-21] MEDS: buPROPion SR 150 MG TABLET.SA PO SCH ×2 (08:20→15:12)
[2020-07-21] MEDS: DOCUSATE SODIUM 100 MG CAPSULE PO SCH (08:20)
[2020-07-21] MEDS: OXYBUTYNIN CHLORIDE 5 MG TABLET PO SCH ×3 (08:20→20:42)
[2020-07-21] MEDS: PANTOPRAZOLE 40 MG TABLET. PO SCH (08:20)
[2020-07-21] MEDS: NYSTATIN 100,000 UNITS/ML ORAL SUSPENSION 60ML BOTTLE. SWSW SCH ×4 (08:21→20:43)
[2020-07-21] MEDS: SERTRALINE 50 MG TABLET. PO SCH (08:21)
[2020-07-21] MEDS: [UNRECOGNIZED DRUG - OTHER] OP SCH (09:00)
[2020-07-21] MEDS: LATANOPROST OP SCH (09:00)
[2020-07-21] MEDS: NETARSUDIL MESYLAT OP SCH (09:00)
[2020-07-21] MEDS: DORZOLAMIDE 2% OPHTH SOLUTION 10ML BOTTLE. OD SCH (15:12)
[2020-07-21] MEDS: TAFLUPROST LEFTEYE SCH (19:18)
[2020-07-21 20:26] VITALS: BP 161/90
[2020-07-21] MEDS: TEMAZEPAM 15 MG CAPSULE PO SCH (20:42)
--- NOTE | 2020-07-21 22:00 | NUR ---
SWING BED DOCUMENTATION Patient Handbook for [facility] given to patient. Nursing Problem: RT Knee Replacement. Cognitive/Behavioral: A&O x3, calm, cooperative. Pain: Denies pain. Respiratory Status: CTA, RA. Skin: Erythema to bilateral groins, surgical incision to RT knee, open to air. Cream applied to groin. Bowel/Bladder Continence: Incontinent of urine. ADL Functional Status: PT incontinent and unaware at shift change. PT cleaned, changed, bed linens changed. PT able to roll but very stiff and fearful of rolling. PT reassured throughout process.
[2020-07-22 06:17] LABS: BASO # 0.1 x10^3/uL (0.0-0.2); BASO % 1 % (0-3); EOS # 0.1 x10^3/uL (0.0-0.7); EOS % 2 % (0-3); HEMATOCRIT 32.4 % (39.0-53.0); HEMOGLOBIN 10.6 g/dL (13.0-17.5); LYMPH # 0.9 x10^3/uL (1.0-4.8); LYMPH % 9 % (24-48); MEAN CORPUSCULAR HEMOGLOBIN 29 pg (25-35); MEAN CORPUSCULAR HGB CONC 33 g/dL (31-37); MEAN CORPUSCULAR VOLUME 90 fL (79-100); MONO # 1.6 x10^3/uL (0.0-1.1); MONO % 17 % (0-9); NEUT % 72 % (31-73); PLATELET COUNT 329 x10^3/uL (140-400); RED BLOOD COUNT 3.59 x10^6/uL (4.30-5.70); RED CELL DISTRIBUTION WIDTH 15.7 % (11.5-14.5); WHITE BLOOD COUNT 9.8 x10^3/uL (4.0-11.0)
[2020-07-22 06:25] LABS: CALCIUM 8.3 mg/dL (8.5-10.1); CREATININE 1.5 mg/dL (0.7-1.3); GFR 44.3; POTASSIUM 3.9 mmol/L (3.5-5.1)
[2020-07-22 08:15] VITALS: BP 161/90
[2020-07-22] MEDS: ASPIRIN CHEWABLE 81 MG TABLET. PO SCH (08:16)
[2020-07-22] MEDS: MECLIZINE 12.5 MG TABLET. PO SCH (08:16)
[2020-07-22] MEDS: RIVAROXABAN 10 MG TABLET. PO SCH (08:16)
[2020-07-22] MEDS: MULTIVITAMIN with MINERAL TABLET. PO SCH (08:16)
[2020-07-22] MEDS: PANTOPRAZOLE 40 MG TABLET. PO SCH (08:16)
[2020-07-22] MEDS: buPROPion SR 150 MG TABLET.SA PO SCH ×2 (08:16→16:05)
[2020-07-22] MEDS: OXYBUTYNIN CHLORIDE 5 MG TABLET PO SCH ×3 (08:17→21:05)
[2020-07-22] MEDS: DOCUSATE SODIUM 100 MG CAPSULE PO SCH (08:17)
[2020-07-22] MEDS: SERTRALINE 50 MG TABLET. PO SCH (08:17)
[2020-07-22] MEDS: BISACODYL TAB 5 MG TABLET.DR. PO PRN (08:17)
[2020-07-22] MEDS: METOPROLOL SUCC 24HR ER 25 MG TAB.ER.24H. PO SCH (08:18)
[2020-07-22] MEDS: DORZOLAMIDE 2% OPHTH SOLUTION 10ML BOTTLE. OD SCH (08:19)
[2020-07-22] MEDS: NYSTATIN 100,000 UNITS/ML ORAL SUSPENSION 60ML BOTTLE. SWSW SCH ×4 (08:20→21:00)
[2020-07-22] MEDS: [UNRECOGNIZED DRUG - OTHER] OP SCH (09:00)
[2020-07-22] MEDS: LATANOPROST OP SCH (09:00)
[2020-07-22] MEDS: NETARSUDIL MESYLAT OP SCH (09:00)
[2020-07-22 12:27] LABS: % ATYL 2 % (0-0); % BANDS 3 % (0-9); % EOS 1 % (0-5); % LYMPHS 8 % (24-48); % MONOS 13 % (0-10); % MYELOS 2 % (0-0); % SEGS 71 % (35-66)
[2020-07-22 12:28] LABS: PLT ESTIMATE ADEQUATE (ADEQUATE); POLYCHROMASIA PRESENT
[2020-07-22 12:29] LABS: BURR CELLS PRESENT
[2020-07-22 12:30] LABS: ACANTHOCYTES PRESENT; OVALOCYTES PRESENT; TEAR DROP CELLS PRESENT
[2020-07-22 19:52] VITALS: BP 158/85
[2020-07-22] MEDS: TAFLUPROST LEFTEYE SCH (20:34)
[2020-07-22] MEDS: TEMAZEPAM 15 MG CAPSULE PO SCH (21:05)
[2020-07-23 07:26] VITALS: BP 158/82
[2020-07-23] MEDS: DOCUSATE SODIUM 100 MG CAPSULE PO SCH (08:16)
[2020-07-23] MEDS: MULTIVITAMIN with MINERAL TABLET. PO SCH (08:16)
[2020-07-23] MEDS: METOPROLOL SUCC 24HR ER 25 MG TAB.ER.24H. PO SCH (08:16)
[2020-07-23] MEDS: MECLIZINE 12.5 MG TABLET. PO SCH (08:16)
[2020-07-23] MEDS: RIVAROXABAN 10 MG TABLET. PO SCH (08:17)
[2020-07-23] MEDS: DORZOLAMIDE 2% OPHTH SOLUTION 10ML BOTTLE. OD SCH (08:17)
[2020-07-23] MEDS: PANTOPRAZOLE 40 MG TABLET. PO SCH (08:17)
[2020-07-23] MEDS: ASPIRIN CHEWABLE 81 MG TABLET. PO SCH (08:17)
[2020-07-23] MEDS: buPROPion SR 150 MG TABLET.SA PO SCH ×2 (08:17→13:34)
[2020-07-23] MEDS: NYSTATIN 100,000 UNITS/ML ORAL SUSPENSION 60ML BOTTLE. SWSW SCH ×4 (08:17→20:10)
[2020-07-23] MEDS: OXYBUTYNIN CHLORIDE 5 MG TABLET PO SCH ×3 (08:17→20:10)
[2020-07-23] MEDS: SERTRALINE 50 MG TABLET. PO SCH (08:17)
[2020-07-23] MEDS: LATANOPROST OP SCH (08:24)
[2020-07-23] MEDS: [UNRECOGNIZED DRUG - OTHER] OP SCH (08:24)
[2020-07-23] MEDS: NETARSUDIL MESYLAT OP SCH (08:24)
[2020-07-23 11:18] VITALS: BP 133/76
[2020-07-23] MEDS: BISACODYL TAB 5 MG TABLET.DR. PO PRN (13:33)
[2020-07-23] MEDS ORDERED: BISACODYL TAB 5 MG TABLET.DR. PO ONE (14:30)
[2020-07-23 15:33] VITALS: BP 132/75
--- NOTE | 2020-07-23 16:28 | NUR ---
NSG NOTE; [facility] IMANI STATED THAT SHE REACHED OUT TO [facility] TODAY FOR SENIOR CARE CARE FOR PT. SHE STATED THAT OUR SW HAD FAXED INFORMATION TO [facility] AND THAT THEY MAY WISH TO COME TO [facility] TO SCREEN THE PT
--- NOTE | 2020-07-23 18:40 | PN ---
DATE: 07/23/2020 SUBJECTIVE: An 85-year-old male in with post-rehabilitation from a knee replacement, general change in mental status, severe dementia, Alzheimer type. The patient's white count has come down to 9.8, hemoglobin 10 and hematocrit 32. The patient is receiving physical and occupational therapy. The patient's TSH is slightly elevated, not enough to be treated. OBJECTIVE: VITAL SIGNS: Blood pressure 132/70, respiratory rate 16, pulse 70, afebrile. GENERAL: The patient is alert and oriented. LUNGS: Diminished, but clear. CARDIOVASCULAR: Stable. ABDOMEN: Soft. EXTREMITIES: Wound healing well. He is taking physical and occupational therapy from the noted physical therapist here. IMPRESSION: Postoperative knee replacement, oral moniliasis markedly improved, weakness, lack of exercise and decreased balance abilities, but mentally seems to be fairly good. He is having some memory lapses though. JHON FRAUSTO MD DR: TWYLA/alejandra JOB#: [id number] / [id number]
[2020-07-23 19:32] VITALS: BP 150/82
[2020-07-23] MEDS: TEMAZEPAM 15 MG CAPSULE PO SCH (20:09)
[2020-07-23] MEDS: TAFLUPROST LEFTEYE SCH (21:00)
[2020-07-23] MEDS: POLYETHYLENE GLYCOL 3350 17 GM PACKET. PO PRN (21:24)
--- NOTE | 2020-07-23 21:45 | NUR ---
SWING BED DOCUMENTATION Patient Handbook for [facility] given to patient. Nursing Problem: RT Knee Replacement. Cognitive/Behavioral: A&O x3, calm, cooperative. Pain: Denies pain. Respiratory Status: CTA, RA. Skin: Erythema to bilateral groins, surgical incision to RT knee, open to air. Cream applied to groin. Bowel/Bladder Continence: Incontinent of urine. ADL Functional Status: PT incontinent and unaware at shift change. Pt brief changed. PT able to roll but very stiff and fearful of rolling. PT reassured throughout process.
[2020-07-24] MEDS ORDERED: DOCUSATE SODIUM 100 MG CAPSULE PO SCH (09:00)
[2020-07-24] MEDS: [UNRECOGNIZED DRUG - OTHER] OP SCH (09:00)
[2020-07-24] MEDS: LATANOPROST OP SCH (09:00)
[2020-07-24] MEDS: NETARSUDIL MESYLAT OP SCH (09:00)
[2020-07-24] MEDS ORDERED: BISACODYL 10 MG SUPP.RECT PR PRN (09:30)
[2020-07-24] MEDS: DORZOLAMIDE 2% OPHTH SOLUTION 10ML BOTTLE. OD SCH (09:34)
[2020-07-24] MEDS: METOPROLOL SUCC 24HR ER 25 MG TAB.ER.24H. PO SCH (09:35)
[2020-07-24] MEDS: DOCUSATE SODIUM 100 MG CAPSULE PO SCH (09:35)
[2020-07-24] MEDS: ASPIRIN CHEWABLE 81 MG TABLET. PO SCH (09:36)
[2020-07-24] MEDS: MULTIVITAMIN with MINERAL TABLET. PO SCH (09:36)
[2020-07-24] MEDS: SERTRALINE 50 MG TABLET. PO SCH (09:36)
[2020-07-24] MEDS: buPROPion SR 150 MG TABLET.SA PO SCH ×2 (09:36→16:30)
[2020-07-24] MEDS: MECLIZINE 12.5 MG TABLET. PO SCH (09:36)
[2020-07-24] MEDS: PANTOPRAZOLE 40 MG TABLET. PO SCH (09:37)
[2020-07-24] MEDS: NYSTATIN 100,000 UNITS/ML ORAL SUSPENSION 60ML BOTTLE. SWSW SCH ×4 (09:37→19:54)
[2020-07-24] MEDS: OXYBUTYNIN CHLORIDE 5 MG TABLET PO SCH ×3 (09:37→19:54)
[2020-07-24 11:55] VITALS: BP 105/71
--- NOTE | 2020-07-24 13:46 | PN ---
DATE: SUBJECTIVE: An 85-year-old male postop from his knee surgery. He had oral moniliasis. White count has come down to 9.8, hemoglobin 10 and 32. The patient is still very forgetful, very confused very easily, forgets what meds the nurses just gave me. OBJECTIVE: GENERAL: Otherwise, his voice is better. LUNGS: Diminished, but clear. VITAL SIGNS: Blood pressure 150/80, afebrile. The patient is alert, baseline as well as being confused, disoriented. The patient will continue to be monitored carefully and continue with PT, OT. He is extremely weak and will continue on swing bed with PT, OT and hopefully get him placed into a facility once the family has decided and he has been accepted. Postop knee replacement for a skilled unit for PT, OT; oral moniliasis, generalized weakness of the musculoskeletal system. PLAN: As above. JHON FRAUSTO MD DR: TWYLA/alejandra JOB#: [id number] / [id number]
[2020-07-24] MEDS: POLYETHYLENE GLYCOL 3350 17 GM PACKET. PO PRN (16:00)
[2020-07-24] MEDS: TAFLUPROST LEFTEYE SCH (19:54)
[2020-07-24] MEDS: TEMAZEPAM 15 MG CAPSULE PO SCH (19:54)
[2020-07-24 20:04] VITALS: BP 160/92
--- NOTE | 2020-07-25 00:16 | NUR ---
SWING BED DOCUMENTATION Patient Handbook for [facility] given to patient. Nursing Problem: RT Knee Replacement. Cognitive/Behavioral: A&O x3, calm, cooperative. Pain: Denies pain. Respiratory Status: CTA, RA. Skin: Erythema to bilateral groins, surgical incision to RT knee, open to air. Cream applied to groin. Bowel/Bladder Continence: Incontinent of urine. ADL Functional Status: PT incontinent and unaware at shift change. Pt brief changed. Pt was sliding out of wheelchair and did not have enough strength to help himself get up into the wheelchair. Sit to stand used on pt to get pt from wheelchair to bed.
[2020-07-25] MEDS: ASPIRIN CHEWABLE 81 MG TABLET. PO SCH (08:09)
[2020-07-25] MEDS ORDERED: DOCUSATE SODIUM 100 MG CAPSULE PO SCH (09:00)
[2020-07-25] MEDS: [UNRECOGNIZED DRUG - OTHER] OP SCH (09:00)
[2020-07-25] MEDS: LATANOPROST OP SCH (09:00)
[2020-07-25] MEDS: NETARSUDIL MESYLAT OP SCH (09:00)
[2020-07-25 09:22] VITALS: BP 109/67
[2020-07-25] MEDS: MULTIVITAMIN with MINERAL TABLET. PO SCH (09:26)
[2020-07-25] MEDS: PANTOPRAZOLE 40 MG TABLET. PO SCH (09:26)
[2020-07-25] MEDS: buPROPion SR 150 MG TABLET.SA PO SCH ×2 (09:26→15:53)
[2020-07-25] MEDS: DOCUSATE SODIUM 100 MG CAPSULE PO SCH (09:26)
[2020-07-25] MEDS: OXYBUTYNIN CHLORIDE 5 MG TABLET PO SCH ×3 (09:26→20:37)
[2020-07-25] MEDS: MECLIZINE 12.5 MG TABLET. PO SCH (09:26)
[2020-07-25] MEDS: METOPROLOL SUCC 24HR ER 25 MG TAB.ER.24H. PO SCH (09:27)
[2020-07-25] MEDS: DORZOLAMIDE 2% OPHTH SOLUTION 10ML BOTTLE. OD SCH (09:27)
[2020-07-25] MEDS: SERTRALINE 50 MG TABLET. PO SCH (09:27)
[2020-07-25] MEDS: NYSTATIN 100,000 UNITS/ML ORAL SUSPENSION 60ML BOTTLE. SWSW SCH ×4 (09:28→20:37)
[2020-07-25] MEDS ORDERED: MINERAL OIL 133 ML ENEMA. PR ONE (12:00)
[2020-07-25] MEDS: BISACODYL TAB 5 MG TABLET.DR. PO PRN (15:53)
--- NOTE | 2020-07-25 18:05 | NUR ---
SWING BED DOCUMENTATION Patient Handbook for [facility] given to patient. Nursing Problem: RT Knee Replacement. Cognitive/Behavioral: A&O x3, calm, pleasant, cooperative. Pain: Denies pain. Respiratory Status: CTA, RA. Skin: Erythema to bilateral groins, surgical incision to RT knee, open to air. Cream applied to groin. Blanchable erythema on R heel, barrier cream and mepilex applied, heels floating off bed. Bowel/Bladder Continence: Incontinent of urine. ADL Functional Status: PT incontinent all day. PT cleaned, changed. PT able to roll but very stiff and fearful of rolling. PT reassured throughout process. Two nurse to change brief. Able to feed self for all meals with set up from staff.
[2020-07-25 20:35] VITALS: BP 163/88
[2020-07-25] MEDS: TEMAZEPAM 15 MG CAPSULE PO SCH (20:37)
[2020-07-25] MEDS: TAFLUPROST LEFTEYE SCH (20:37)
--- NOTE | 2020-07-26 05:40 | NUR ---
SWING BED DOCUMENTATION Nursing Problem: Right Knee Replacement on 06/29, needing PT/OT for strength and conditioning. Cognitive/Behavioral: Pt is A&O x2, pleasantly forgetful & confused. Pt has been cooperative with all cares and assessments. Pt talked with on phone independently. Pain: Pt denies pain. Respiratory Status: Lungs CTA, pt is on room air, denies cough or SOA. Skin: Pt with redness to bilateral groins r/t incontinence. Cream applied to groin. Pt with healing surgical incision to right knee, open to air and no s/s of infection. Bowel/Bladder Continence: Pt is incontinent of urine. Pt had 2 episodes during the night. Pt was given fleets enema earlier on previous shift. ADL Functional Status: Pt able to feed himself with set up help only. Pt was able to turn self in bed and hold himself on his side while incont briefs were changed by staff. Pt did not get OOB this shift.
[2020-07-26] MEDS: LATANOPROST OP SCH (09:00)
[2020-07-26] MEDS: NETARSUDIL MESYLAT OP SCH (09:00)
[2020-07-26] MEDS: [UNRECOGNIZED DRUG - OTHER] OP SCH (09:00)
[2020-07-26] MEDS: BISACODYL TAB 5 MG TABLET.DR. PO PRN (09:48)
[2020-07-26] MEDS: MULTIVITAMIN with MINERAL TABLET. PO SCH (09:49)
[2020-07-26] MEDS: DOCUSATE SODIUM 100 MG CAPSULE PO SCH (09:49)
[2020-07-26] MEDS: ASPIRIN CHEWABLE 81 MG TABLET. PO SCH (09:49)
[2020-07-26] MEDS: PANTOPRAZOLE 40 MG TABLET. PO SCH (09:49)
[2020-07-26] MEDS: DORZOLAMIDE 2% OPHTH SOLUTION 10ML BOTTLE. OD SCH (09:49)
[2020-07-26] MEDS: MECLIZINE 12.5 MG TABLET. PO SCH (09:49)
[2020-07-26] MEDS: OXYBUTYNIN CHLORIDE 5 MG TABLET PO SCH ×3 (09:49→21:18)
[2020-07-26] MEDS: SERTRALINE 50 MG TABLET. PO SCH (09:49)
[2020-07-26] MEDS: buPROPion SR 150 MG TABLET.SA PO SCH ×2 (09:49→16:47)
[2020-07-26] MEDS: METOPROLOL SUCC 24HR ER 25 MG TAB.ER.24H. PO SCH (09:50)
[2020-07-26] MEDS: NYSTATIN 100,000 UNITS/ML ORAL SUSPENSION 60ML BOTTLE. SWSW SCH ×4 (09:50→21:18)
[2020-07-26] MEDS ORDERED: MINERAL OIL 133 ML ENEMA. PR ONE (10:45)
[2020-07-26 11:28] VITALS: BP 131/73
[2020-07-26 19:50] VITALS: BP 140/80
[2020-07-26] MEDS: TAFLUPROST LEFTEYE SCH (21:00)
[2020-07-26] MEDS: TEMAZEPAM 15 MG CAPSULE PO SCH (21:18)
--- NOTE | 2020-07-27 06:41 | NUR ---
Swing Bed Nursing Note Nursing Problem: Right Knee Replacement on 06/29, needing PT/OT for strength and conditioning. Cognitive/Behavioral: Pt is A/O self only this evening, pleasantly confused. Pt believes we are visiting in his home. Pt has been cooperative with all cares and assessments. Pain: Pt denies any c/o pain. Repositioned in bed for maximal comfort. Respiratory Status: Lungs CTA, pt is on room air, denies cough or SOA. Skin: Pt with redness to bilateral groins r/t incontinence--barrier cream applied with each brief change. Pt with healing surgical incision to right knee, open to air and no s/s of infection. Bowel/Bladder Continence: Pt is incontinent of urine. Pt was given fleets enema earlier on previous shift, minimal results. ADL Functional Status: Pt able to feed himself with set up help only. Pt was able to turn self in bed and hold himself on his side while incont briefs were changed by staff. Pt did not get OOB this shift.
[2020-07-27] MEDS: LATANOPROST OP SCH (09:00)
[2020-07-27] MEDS: [UNRECOGNIZED DRUG - OTHER] OP SCH (09:00)
[2020-07-27] MEDS: NETARSUDIL MESYLAT OP SCH (09:00)
[2020-07-27] MEDS: MECLIZINE 12.5 MG TABLET. PO SCH (09:47)
[2020-07-27] MEDS: SERTRALINE 50 MG TABLET. PO SCH (09:47)
[2020-07-27] MEDS: ASPIRIN CHEWABLE 81 MG TABLET. PO SCH (09:47)
[2020-07-27] MEDS: METOPROLOL SUCC 24HR ER 25 MG TAB.ER.24H. PO SCH (09:51)
[2020-07-27] MEDS: PANTOPRAZOLE 40 MG TABLET. PO SCH (09:51)
[2020-07-27] MEDS: OXYBUTYNIN CHLORIDE 5 MG TABLET PO SCH (09:51)
[2020-07-27] MEDS: buPROPion SR 150 MG TABLET.SA PO SCH (09:52)
[2020-07-27] MEDS: MULTIVITAMIN with MINERAL TABLET. PO SCH (09:52)
[2020-07-27] MEDS: DOCUSATE SODIUM 100 MG CAPSULE PO SCH (09:52)
[2020-07-27] MEDS: DORZOLAMIDE 2% OPHTH SOLUTION 10ML BOTTLE. OD SCH (09:53)
[2020-07-27] MEDS: NYSTATIN 100,000 UNITS/ML ORAL SUSPENSION 60ML BOTTLE. SWSW SCH ×2 (09:53→13:00)
[2020-07-27 10:02] VITALS: BP 116/65
--- NOTE | 2020-07-27 11:58 | DISCH ---
DISCHARGE ORDERS DISCHARGE DATE: Jul 27, 2020 FINAL DIAGNOSIS post right knee replacement CONDITION AT DISCHARGE: Stable Code Status: DNR/DNI SNF STAY <30 DAYS: Yes HOSPICE: No HOSPICE EVALUATE & TREAT: No ADMIT TO LTAC: No POST DISCHARGE ORDERS: ACTIVITY ORDERS: Activity as tolerated WEIGHT BEARING STATUS: As tolerated DIET AFTER DISCHARGE: Regular CHECKS AFTER DISCHARGE: CHECKS AFTER DISCHARGE: Check blood press - daily TREATMENT/EQUIPMENT ORDERS: ADAPTIVE EQUIPMENT NEEDED: None DISCHARGE MEDICATIONS: Home Meds Active Scripts Esomeprazole Magnesium (NEXIUM CAPSULE) 20 Mg Capsule.dr, 1 CAP PO DAILY, #30 CAP 2 Refills Prov:PADMA FINNEGAN MD 09/06/15 Reported Medications Isosorbide Dinitrate (ISOSORBIDE DINITRATE) 10 Mg Tablet, 15 MG PO QEVNG for angina, TAB 07/13/20 Rivaroxaban (XARELTO) 10 Mg Tablet, 1 TAB PO DAILY for DVT PROPHYLAXIS, % 0 Refills 07/12/20 Tramadol Hcl (TRAMADOL HCL) 50 Mg Tablet, 50 MG PO PRN Q6HRS PRN for PAIN, TAB 07/12/20 Netarsudil Mesylat/Latanoprost (Rocklatan 0.02%-0.005% Eye Drp) 2.5 Ml Drops, 2.5 ML OP DAILY for GLAUCOMA, % 07/12/20 Temazepam (RESTORIL) 15 Mg Capsule, 1 CAP PO QHS for INSOMNIA, % 07/12/20 Multivitamin (MULTI VITAMIN DAILY) 1 Each Tablet, 1 TAB PO DAILY for VITAMIN, % 07/12/20 Ipratropium [place] (IPRATROPIUM BROMIDE) 15 Ml [place], 15 ML NS PRN Q4HRS PRN for ALLERGIES, SPRAY 07/12/20 Tafluprost/Pf (ZIOPTAN 0.0015% EYE DROPS) 1 Each [place], 1 DROP EACHEYE QHS for . for 30 Days, #30 VIAL 0 Refills 05/18/20 Brinzolamide (AZOPT) 10 Ml Drops.susp, 1 DROP RIGHTEYE BID for . 05/18/20 Metoprolol Succinate (METOPROLOL SUCCINATE ( XL )) 25 Mg Tab.er.24h, 25 MG PO BID for FOR HYPERTENSION, #30 TAB 0 Refills 05/18/20 Oxybutynin Chloride (OXYBUTYNIN CHLORIDE ER) 15 Mg Tab.er.24, 1 TAB PO DAILY for . 03/08/20 Nitroglycerin (NITROGLYCERIN SubLingual) 0.4 Mg Tab.subl, 0.4 MG SL PRN Q5MIN PRN for CHEST PAIN NOT GIVEN TODAY NEXT DOSE DUE: DATE: TODAY TIME: IF AND WHEN NEEDED 04/23/19 Sertraline Hcl (ZOLOFT) 25 Mg Tablet, 1 TAB PO QHS for DEPRESSION LAST DOSE GIVEN: DATE: YESTERDAY TIME: AT BEDTIME NEXT DOSE DUE: DATE: TODAY TIME: AT BEDTIME 04/23/19 Atorvastatin Calcium (ATORVASTATIN CALCIUM) 40 Mg Tablet, 1 TAB PO QHS for HIGH CHOLESTEROL LAST DOSE GIVEN: DATE: YESTERDAY TIME: AT BEDTIME NEXT DOSE DUE: DATE: TODAY TIME: AT BEDTIME 04/23/19 Aspirin (ASPIRIN) 81 Mg Tab.chew, 81 MG PO DAILY for PREVENT BLOOD CLOTS, TAB LAST DOSE GIVEN: DATE: TODAY TIME: AM NEXT DOSE DUE: DATE: TOMORROW TIME: AM 06/11/17 JHON FRAUSTO MD Jul 27, 2020 11:58
--- NOTE | 2020-07-27 13:49 | NUR ---
Discharge Note: DONNELL CONKLIN [facility] Discharge instructions and discharge home medications reviewed with Nurse at [facility] and a copy given and sent with pt to facility. All questions have been answered and understanding verbalized. Patient discharged to [facility] with [facility] members via Wheelchair. Pt wheeled to vehicle and assisted into it.
--- NOTE | 2020-07-31 14:44 | DS ---
DATE OF DISCHARGE: 07/27/2020 HOSPITAL COURSE: An 85-year-old male who had recent surgery on his knees, still very weak. The patient had multiple mobility problems including falling, difficulty with his gait and the like. He received physical and occupational therapy on the skilled unit here and the patient was finally transferred to the [facility] for continued care as he was unable to report home. The patient did have mild dementia, hallucinations and the like as well, as well as oral moniliasis. He had generalized weakness due to his lack of exercise and refused to really participate too much or as much as he could with the physical therapist. His hemoglobin was 10.6 and 32. Creatinine was elevated at 1.5. TSH slightly elevated to 4.1. IMPRESSION: Postop care for right knee replacement, severe dementia, Alzheimer type, syncopal spells, multiple falls, auditory and visual hallucinations, chronic renal failure stage 3, hypothyroidism. His B12 was 866, vitamin D was 33.9. He was transferred to [facility]. He will be on a diet as tolerated, physical therapy as tolerated and as can be participated by this very nice gentleman. JHON FRAUSTO MD DR: TWYLA/alejandra JOB#: [id number] / [id number]
--- NOTE | 2020-08-06 08:08 | HP ---
ADMIT DATE: 07/12/2020 HISTORY OF PRESENT ILLNESS: An 85-year-old gentleman who recently had a right knee replacement surgery, had been at [facility], apparently did not have good success with the rehabilitation there and wanted to be transferred to the skilled unit here at [facility] for continued care of his wounds and rehabilitation as indicated. The patient in turn has just generalized weakness, but postop care for rehab, skilled unit. PAST MEDICAL HISTORY: That of tinnitus, cataracts, glaucoma, angina, cardiac surgery, cardiac catheterization, coronary stent, sleep apnea, Cortez's esophagus, hemorrhoids, abdominal surgery, rectal surgery, urinary urgency, musculoskeletal problems, osteoarthritis, recent lifestyle change, skin cancer, pneumococcal vaccination up-to-date. HAS AN ADVERSE REACTION TO PROPOFOL CAUSING SNEEZING AND COUGHING. ALLERGIES: AMOXICILLIN, CIPROFLOXACIN, DOXYCYCLINE, ETOMIDATE, AND PROPOFOL. SOCIAL HISTORY: Denies smoking, alcohol or drug use. Lives at home with his . REVIEW OF SYSTEMS: The patient has generalized weakness. Other than that, he does have mild dementia and unable to remember things, but other than that, he denies chest pain, shortness of breath, abdominal pain at the present time. PHYSICAL EXAMINATION: GENERAL: This is a pleasant white male, in moderate amount of distress. VITAL SIGNS: Blood pressure 116/60, respiratory rate 18, pulse 62, afebrile. HEENT: The patient's head was atraumatic, normocephalic. Eyes: PERRLA without jaundice. The mouth and throat were normal. NECK: Supple. No thyromegaly. LUNGS: Diminished, but clear. CARDIOVASCULAR: Regular sinus rhythm, S1, S2, without murmur, rub, thrill, or extra heart sounds. ABDOMEN: Soft, nontender, no rebound or guarding. Positive bowel sounds, no hepatosplenomegaly was noted. EXTREMITIES: No clubbing, cyanosis, nor edema. The patient's right knee shows surgical strips as well as sutured with no signs of infection. Decreased range of motion of course postop to be understood and make further evaluation on him as indicated. NEUROLOGIC: Alert and oriented at times, other times, has dementia, short-term memory deficits and sometimes an occasional hallucination. LABORATORY DATA: His labs were basically white count was 14, hemoglobin and hematocrit 11 and 34 and chemistries showed 140, 3.9, BUN and creatinine 31 and 1.5. TSH of 4.1. PLAN: The patient will continue with physical and occupational therapy. Monitor his white count to make further evaluation as indicated. IMPRESSION: Postop rehab for right knee replacement with dementia, leukocytosis, chronic kidney disease stage 3, hypothyroidism. The patient continued to be monitored carefully, make further evaluation on him as indicated. JHON FRAUSTO MD DR: TWYLA/alejandra JOB#: [id number] / [id number]
== END 2020-07-27 13:30 | DRG 556 ==
LOC: LND 15:45 → 1 SOUTH 07-16 19:03
PROVIDERS: ADMIT Family Medicine; ATTEND Family Medicine
DX: M25.561 Pain in right knee (principal); B37.0 Candidal stomatitis; R53.1 Weakness; F02.80 Dementia in other diseases classified elsewhere, unspecified severity, without behavioral disturbance, psychotic disturbance, mood disturbance, and anxiety; G30.9 Alzheimer's disease, unspecified; K59.00 Constipation, unspecified; Z96.651 Presence of right artificial knee joint; R49.0 Dysphonia; Z88.8 Allergy status to other drugs, medicaments and biological substances; Z79.899 Other long term (current) drug therapy
CPT/HCPCS: 36415; 80048; 82306; 82607; 83735; 84443; 85007; 85025; J8597; 97110; 97116; 97530; 97535